=== PATIENT | male | born 1945 | race Caucasian/White ===

== ENCOUNTER 2016-04-25 13:52 | Inpatient (IN) | payer MEDICARE ==
[2016-04-25] MEDS ORDERED: SODIUM CHLORIDE 0.9% 1,000 ML IV ONE ×2 (14:01→16:00)
[2016-04-25] MEDS ORDERED: FAMOTIDINE 20 MG/50 ML 50 ML IV ONE ×2 (14:54→14:56)
[2016-04-25] MEDS ORDERED: ACETAMINOPHEN 325 MG TABLET PO PRN (17:03)
[2016-04-25] MEDS ORDERED: HYDROcod/ACETAM 5/325 MG TABLET PO PRN (17:03)
[2016-04-25] MEDS ORDERED: SODIUM CHLORIDE FLUSH 0.9% 10 ML SYRINGE IVP PRN (17:03)
[2016-04-25] MEDS ORDERED: ONDANSETRON 4 MG/2 ML VIAL IVP PRN (17:03)
[2016-04-25] MEDS ORDERED: NS W/20 MEQ KCL 1,000 ML IV SCH (18:00)
[2016-04-25] MEDS ORDERED: INSULIN REGULAR HUMAN 100 UNIT/1 ML 10 ML MDV SUBQ SCH (18:00)
[2016-04-25] MEDS: PANTOPRAZOLE 40 MG VIAL IVP SCH (20:03)
[2016-04-25] MEDS: SODIUM CHLORIDE FLUSH 0.9% 10 ML SYRINGE IVP SCH (21:50)
[2016-04-25] MEDS ORDERED: DEXTROSE GEL 37.5 GM TUBE PO PRN (21:53)
[2016-04-25] MEDS ORDERED: GLUCAGON 1 MG/ML VIAL SUBQ PRN (21:53)
[2016-04-25] MEDS ORDERED: DEXTROSE 5% 1,000 ML IV PRN (21:53)
[2016-04-25] MEDS ORDERED: DEXTROSE 50% ABBOJECT 25 GM/50 ML SYRINGE IVP PRN (21:53)
[2016-04-26] MEDS: PANTOPRAZOLE 40 MG VIAL IVP SCH ×2 (06:17→16:09)
[2016-04-26] MEDS: SODIUM CHLORIDE FLUSH 0.9% 10 ML SYRINGE IVP SCH ×3 (06:18→16:09)
[2016-04-26] MEDS: INSULIN ASPART 300 UNIT/3 ML PEN SUBQ SCH ×4 (08:05→20:55)
[2016-04-26] MEDS: TAMSULOSIN 0.4 MG CAPSULE PO SCH (09:07)
[2016-04-26] MEDS: POLYETHYLENE GLYCOL 3350 17 GM PACKET PO SCH (09:08)
[2016-04-27] MEDS: PANTOPRAZOLE 40 MG VIAL IVP SCH (07:01)
[2016-04-27] MEDS: SODIUM CHLORIDE FLUSH 0.9% 10 ML SYRINGE IVP SCH (07:01)
[2016-04-27] MEDS: INSULIN ASPART 300 UNIT/3 ML PEN SUBQ SCH ×2 (08:19→12:00)
[2016-04-27] MEDS: POLYETHYLENE GLYCOL 3350 17 GM PACKET PO SCH (08:20)
[2016-04-27] MEDS: TAMSULOSIN 0.4 MG CAPSULE PO SCH (09:24)
== END 2016-04-27 13:43 | disposition home or self-care (01) | DRG 378 ==
DX: K92.2 Gastrointestinal hemorrhage, unspecified (principal); N28.9 Disorder of kidney and ureter, unspecified; I10 Essential (primary) hypertension; K92.1 Melena; N17.9 Acute kidney failure, unspecified; Z79.84 Long term (current) use of oral hypoglycemic drugs; D62 Acute posthemorrhagic anemia; K27.9 Peptic ulcer, site unspecified, unspecified as acute or chronic, without hemorrhage or perforation; I12.9 Hypertensive chronic kidney disease with stage 1 through stage 4 chronic kidney disease, or unspecified chronic kidney disease; N18.9 Chronic kidney disease, unspecified; E11.9 Type 2 diabetes mellitus without complications; F03.90 Unspecified dementia, unspecified severity, without behavioral disturbance, psychotic disturbance, mood disturbance, and anxiety; Z66 Do not resuscitate

== ENCOUNTER 2016-05-21 07:50 | Outpatient (CLI) | payer MEDICARE | END 2016-05-21 07:51 | disposition home or self-care (01) | DX: D50.9 Iron deficiency anemia, unspecified (principal); E11.9 Type 2 diabetes mellitus without complications; N18.3 Chronic kidney disease, stage 3 (moderate); K92.2 Gastrointestinal hemorrhage, unspecified; I12.9 Hypertensive chronic kidney disease with stage 1 through stage 4 chronic kidney disease, or unspecified chronic kidney disease ==

== ENCOUNTER 2016-10-22 07:43 | Outpatient (CLI) | payer MEDICARE ==
[2016-10-22 12:59] LABS: BASOPHILS # (AUTO) 0.1 10^3/uL (0.0-0.1); BASOPHILS % (AUTO) 0.9 %; EOSINOPHILS # (AUTO) 0.3 10^3/uL (0.0-0.7); EOSINOPHILS % (AUTO) 3.6 %; HGB - HEMOGLOBIN 11.2 g/dL (14.0-18.0); LYMPHOCYTES # (AUTO) 1.7 10^3/uL (1.5-3.5); LYMPHOCYTES % (AUTO) 19.8 %; MEAN CORPUSCULAR HGB CONC 32.9 g/dL (32.0-36.0); MEAN CORPUSCULAR VOLUME 84.9 fL (80.0-94.0); MEAN PLATELET VOLUME 9.2 fL (7.4-11.4); MONOCYTES # (AUTO) 0.6 10^3/uL (0.0-1.0); MONOCYTES % (AUTO) 6.9 %; NEUTROPHILS % (AUTO) 68.8 %; RED BLOOD COUNT 4.01 10^6/uL (4.70-6.10); RED CELL DISTRIBUTION WIDTH 15.2 % (12.0-15.0); UNCORRECTED WHITE BLOOD COUNT 8.7 x10^3/uL; WHITE BLOOD COUNT 8.7 x10^3/uL (4.8-10.8)
[2016-10-22 13:36] LABS: HEMOGLOBIN A1C 1.18 g/dL
[2016-10-22 14:04] LABS: ALBUMIN/GLOBULIN RATIO 0.9 (1.0-2.2); BILIRUBIN,TOTAL 0.2 mg/dL (0.2-1.0); CALCIUM 9.7 mg/dL (8.5-10.3); CREATININE 1.4 mg/dL (0.6-1.2); POTASSIUM 3.9 mmol/L (3.5-5.0); TOTAL PROTEIN 8.2 g/dL (6.7-8.2)
== END 2016-10-22 07:44 | disposition home or self-care (01) ==
LOC: LAB.WCP 07:43
PROVIDERS: ATTEND Family Medicine
DX: R62.50 Unspecified lack of expected normal physiological development in childhood (principal); E11.9 Type 2 diabetes mellitus without complications; F03.90 Unspecified dementia, unspecified severity, without behavioral disturbance, psychotic disturbance, mood disturbance, and anxiety; D50.9 Iron deficiency anemia, unspecified; C61 Malignant neoplasm of prostate; N18.3 Chronic kidney disease, stage 3 (moderate)
CPT/HCPCS: 36415; 80053; 83036; 83540; 84466; 85025

== ENCOUNTER 2016-10-29 07:06 | Outpatient (CLI) | payer MEDICARE | END 2016-10-29 07:07 | disposition home or self-care (01) | LOC: LAB.R 07:06 | PROVIDERS: ATTEND Family Medicine | DX: N39.0 Urinary tract infection, site not specified (principal) | CPT/HCPCS: 87077; 87086 ==

== ENCOUNTER 2017-06-10 16:46 | Outpatient (CLI) | payer MEDICARE | END 2017-06-10 16:47 | disposition critical access hospital (66) | LOC: EMS 16:46 | PROVIDERS: ATTEND Surgery | DX: R73.09 Other abnormal glucose (principal) | CPT/HCPCS: A0425; A0429 ==

== ENCOUNTER 2017-06-10 17:05 | Emergency (ER) | payer MEDICARE ==
[2017-06-10 17:17] VITALS: BP 143/91
[2017-06-10 17:39] LABS: BASOPHILS # (AUTO) 0.1 10^3/uL (0.0-0.1); BASOPHILS % (AUTO) 1.1 %; EOSINOPHILS # (AUTO) 0.3 10^3/uL (0.0-0.7); EOSINOPHILS % (AUTO) 3.7 %; HGB - HEMOGLOBIN 10.5 g/dL (14.0-18.0); LYMPHOCYTES # (AUTO) 1.6 10^3/uL (1.5-3.5); MEAN CORPUSCULAR HEMOGLOBIN 28.1 pg (27.0-31.0); MEAN CORPUSCULAR HGB CONC 32.7 g/dL (32.0-36.0); MEAN CORPUSCULAR VOLUME 85.9 fL (80.0-94.0); MONOCYTES # (AUTO) 0.6 10^3/uL (0.0-1.0); MONOCYTES % (AUTO) 6.4 %; NEUTROPHILS # (AUTO) 6.7 10^3/uL (1.5-6.6); NEUTROPHILS % (AUTO) 71.8 %; PLT - PLATELET COUNT 313 10^3/uL (130-450); RED BLOOD COUNT 3.75 10^6/uL (4.70-6.10); RED CELL DISTRIBUTION WIDTH 14.8 % (12.0-15.0); WHITE BLOOD COUNT 9.3 x10^3/uL (4.8-10.8)
[2017-06-10 17:52] LABS: ALBUMIN 3.6 g/dL (3.2-5.5); ALBUMIN/GLOBULIN RATIO 0.8 (1.0-2.2); BILIRUBIN,TOTAL 0.2 mg/dL (0.2-1.0); CALCIUM 9.9 mg/dL (8.5-10.3); CREATININE 1.5 mg/dL (0.6-1.2); TOTAL PROTEIN 8.2 g/dL (6.7-8.2)
--- NOTE | 2017-06-10 18:23 | ED Physician Documentation ---
PD HPI NVD - Stated complaint Stated Complaint: HYPERGLYCEMIA - Chief complaint Chief Complaint: General - History obtained from History obtained from: Patient - History of Present Illness Timing - onset: How many days ago (has had somewhat elevated sugars for awhile and on oral med. BS has been more elevated the past few days with today in the 400s. Referred to ED by caregivers at [facility]. 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 Patient says he is urinating more often but otherwise feeling normal.) Timing - duration: Days Timing - details: Gradual onset, Waxing and waning Associated symptoms: No: Fever, Near syncope / syncope Contributing factors: Diabetes. No: Sick contact, Bad food, Recent antibiotics Worsened by: No: Eating Similar symptoms before: Has not had sx before Recently seen: Not recently seen Review of Systems Constitutional: denies: Fever Nose: denies: Rhinorrhea / runny nose, Congestion Throat: denies: Sore throat Cardiac: denies: Chest pain / pressure, Palpitations Respiratory: denies: Cough GI: denies: Abdominal Pain, Nausea, Vomiting : denies: Dysuria, Frequency Skin: denies: Rash, Lesions Neurologic: reports: Generalized weakness Endocrine: reports: Polyuria PD PAST MEDICAL HISTORY - Past Medical History Past Medical History: Yes Cardiovascular: Hypertension Respiratory: None Neuro: Dementia Endocrine/Autoimmune: Type 2 diabetes GI: None : Nocturia HEENT: None Psych: Claustrophobia Musculoskeletal: None Derm: None - Past Surgical History Past Surgical History: Yes - Present Medications Home Medications: Ambulatory Orders Medication Instructions Recorded Confirmed Acetaminophen [Tylenol] 325 mg PO Q6H PRN 06/10/17 Calcium Carbonate/Vitamin D3 1 tab PO DAILY 06/10/17 [Calcium 600-Vit D3 400 Tablet] Ferrous Sulfate 325 mg PO DAILY 06/10/17 Lisinopril/Hydrochlorothiazide 1 tab PO DAILY 06/10/17 [Lisinopril-Hctz 10-12.5 mg Tab] Pantoprazole [Protonix] 40 mg PO BID 06/10/17 Tamsulosin [Flomax] 1 tab PO DAILY 06/10/17 metFORMIN [Glucophage] 1,000 mg PO BID 06/10/17 - Allergies Allergies/Adverse Reactions: Allergies Allergy/AdvReac Type Severity Reaction Status Date / Time No Known Drug Allergies Allergy Verified 06/10/17 17:17 - Social History Does the pt smoke?: No Smoking Status: Never smoker Does the pt drink ETOH?: No Does the pt have substance abuse?: No - Immunizations Immunizations are current?: Yes PD ED PE NORMAL - Vitals Vital signs reviewed: Yes - General General: Alert and oriented X 3, No acute distress, Well developed/nourished - HEENT HEENT: Atraumatic, Pharynx benign - Neck Neck: Supple, no meningeal sign, No adenopathy - Cardiac Cardiac: RRR, No murmur - Respiratory Respiratory: Clear bilaterally - Abdomen Abdomen: Normal bowel sounds, Soft, Non tender, Non distended - Male Male : Deferred - Rectal Rectal: Deferred - Back Back: No CVA TTP - Derm Derm: Normal color, Warm and dry - Extremities Extremities: No tenderness to palpate, Normal ROM s pain, No edema, No calf tenderness / cord - Neuro Neuro: Alert and oriented X 3, No motor deficit, Normal speech Results - Vitals Vitals: Oxygen O2 Source [With Activity] Nasal cannula O2 Source Nasal cannula - Labs Labs: Laboratory Tests 06/10/17 06/10/17 06/10/17 17:15 17:33 17:33 WBC 9.3 RBC 3.75 L Hgb 10.5 L Hct 32.2 L MCV 85.9 MCH 28.1 MCHC 32.7 RDW 14.8 Plt Count 313 MPV 8.0 Neut # 6.7 H Lymph # 1.6 [place]ard # 0.6 Eos # 0.3 Baso # 0.1 Absolute Nucleated RBC 0.01 Nucleated RBC % 0.1 VBG pH VBG pCO2 VBG pO2 VBG HCO3 VBG Total CO2 VBG O2 Saturation VBG Base Excess Sodium 134 L Potassium 4.4 Chloride 97 L Carbon Dioxide 23 Anion Gap 14.0 H BUN 27 H Creatinine 1.5 H Estimated GFR (MDRD) 46 L Glucose 390 H POC Whole Bld Glucose 403 H Glycated Hemoglobin Estim Average Glucose Calcium 9.9 Magnesium Total Bilirubin 0.2 AST 102 H ALT 65 H Alkaline Phosphatase 77 Total Protein 8.2 Albumin 3.6 Globulin 4.6 H Albumin/Globulin Ratio 0.8 L Lipase 76 H Serum Ketones 06/10/17 06/10/17 06/10/17 17:33 17:33 18:52 WBC RBC Hgb Hct MCV MCH MCHC RDW Plt Count MPV Neut # Lymph # Heard # Eos # Baso # Absolute Nucleated RBC Nucleated RBC % VBG pH 7.445 H VBG pCO2 40.4 L VBG pO2 56.2 H VBG HCO3 27.1 VBG Total CO2 2.9 L VBG O2 Saturation 90.4 H VBG Base Excess 2.9 H Sodium Potassium Chloride Carbon Dioxide Anion Gap BUN Creatinine Estimated GFR (MDRD) Glucose POC Whole Bld Glucose Glycated Hemoglobin 9.8 H Estim Average Glucose 235 H Calcium Magnesium 1.9 Total Bilirubin AST ALT Alkaline Phosphatase Total Protein Albumin Globulin Albumin/Globulin Ratio Lipase Serum Ketones NEGATIVE 06/10/17 06/10/17 18:52 19:35 WBC RBC Hgb Hct MCV MCH MCHC RDW Plt Count MPV Neut # Lymph # Heard # Eos # Baso # Absolute Nucleated RBC Nucleated RBC % VBG pH VBG pCO2 VBG pO2 VBG HCO3 VBG Total CO2 VBG O2 Saturation VBG Base Excess Sodium Potassium Chloride Carbon Dioxide Anion Gap BUN Creatinine Estimated GFR (MDRD) Glucose POC Whole Bld Glucose 327 H 302 H Glycated Hemoglobin Estim Average Glucose Calcium Magnesium Total Bilirubin AST ALT Alkaline Phosphatase Total Protein Albumin Globulin Albumin/Globulin Ratio Lipase Serum Ketones PD MEDICAL DECISION MAKING - ED course Complexity details: d/w search consultant (DANIEL Colmenares, diamond saw operator, who suggests waiting for PMD to decide on treatment before presuming to start Lantus, though that will likely be the case. ) Departure - Departure Disposition: 01 Home, Self Care Clinical Impression: Hyperglycemia Condition: Stable Record reviewed to determine appropriate education?: Yes Instructions: ED Hyperglycemia Diabetic Follow-Up: Kirit Newell MD [Primary Care Provider] - Comments: Continue your current medications. Check with Dr. Newell's office tomorrow regarding if they want to start you on a long-acting daily insulin such as Lantus. This likely will be the case had a very low dose to begin with but the on-director call wanted to defer it to Dr. Newell before deciding for sure. Your other tests looked okay here and no signs of electrolyte problems or other infections that might have triggered the sugar to be high. Presumably is just your metabolism is changing and may require increased medication. Discharge Date/Time: 06/10/17 22:12
[2017-06-10] MEDS ORDERED: INSULIN REGULAR HUMAN 100 UNIT/1 ML 10 ML MDV SUBQ STA (18:41)
[2017-06-10 18:57] LABS: MAGNESIUM 1.9 mg/dL (1.7-2.8)
[2017-06-10 19:05] LABS: VBG BASE EXCESS 2.9 mmol/L (-2 - +2); VBG PCO2 40.4 mmHg (41-51); VBG PH 7.445 (7.31-7.41); VBG PO2 56.2 mmHg (25-47); VBG TOTAL CO2 2.9 mmol/L (24-29)
[2017-06-10 19:07] LABS: HB2 TOTAL 11.3 g/dL; HEMOGLOBIN A1C 0.94 g/dL; HEMOGLOBIN A1C % 9.8 % (4.6-6.2)
[2017-06-10 19:12] LABS: KETONES, SERUM (ACETEST) NEGATIVE (NEGATIVE)
== END 2017-06-10 22:12 | disposition home or self-care (01) ==
LOC: EDUNIT# → ED 17:05
DX: E11.65 Type 2 diabetes mellitus with hyperglycemia (principal); Z79.84 Long term (current) use of oral hypoglycemic drugs; I10 Essential (primary) hypertension; F03.90 Unspecified dementia, unspecified severity, without behavioral disturbance, psychotic disturbance, mood disturbance, and anxiety
CPT/HCPCS: 36415; 80053; 82009; 82803; 83036; 83690; 83735; 85025; 99283; 99284; J1815

== ENCOUNTER 2017-11-12 08:00 | Outpatient (CLI) | payer MEDICARE ==
[2017-11-12 19:18] LABS: HB2 TOTAL 13.4 g/dL; HEMOGLOBIN A1C 1.12 g/dL; HEMOGLOBIN A1C % 9.8 % (4.6-6.2)
[2017-11-12 19:19] LABS: BASOPHILS # (AUTO) 0.1 10^3/uL (0.0-0.1); BASOPHILS % (AUTO) 1.1 %; EOSINOPHILS # (AUTO) 0.2 10^3/uL (0.0-0.7); EOSINOPHILS % (AUTO) 2.9 %; HGB - HEMOGLOBIN 12.2 g/dL (14.0-18.0); LYMPHOCYTES # (AUTO) 1.1 10^3/uL (1.5-3.5); LYMPHOCYTES % (AUTO) 18.6 %; MEAN CORPUSCULAR HEMOGLOBIN 29.8 pg (27.0-31.0); MEAN CORPUSCULAR HGB CONC 32.9 g/dL (32.0-36.0); MEAN CORPUSCULAR VOLUME 90.4 fL (80.0-94.0); MEAN PLATELET VOLUME 9.7 fL (7.4-11.4); MONOCYTES # (AUTO) 0.6 10^3/uL (0.0-1.0); MONOCYTES % (AUTO) 9.7 %; NEUTROPHILS % (AUTO) 67.7 %; PLT - PLATELET COUNT 275 10^3/uL (130-450); RED BLOOD COUNT 4.12 10^6/uL (4.70-6.10); RED CELL DISTRIBUTION WIDTH 14.6 % (12.0-15.0); WHITE BLOOD COUNT 5.9 x10^3/uL (4.8-10.8)
[2017-11-12 19:24] LABS: ALBUMIN 3.5 g/dL (3.2-5.5); ALBUMIN/GLOBULIN RATIO 0.7 (1.0-2.2); BILIRUBIN,TOTAL 0.5 mg/dL (0.2-1.0); CALCIUM 10.4 mg/dL (8.5-10.3); CREATININE 1.6 mg/dL (0.6-1.2); TOTAL PROTEIN 8.3 g/dL (6.7-8.2)
== END 2017-11-12 08:01 | disposition home or self-care (01) ==
LOC: LAB.WCP 08:00
PROVIDERS: ATTEND Family Medicine
DX: N18.3 Chronic kidney disease, stage 3 (moderate) (principal); E11.29 Type 2 diabetes mellitus with other diabetic kidney complication
CPT/HCPCS: 36415; 80053; 83036; 84443; 85025

== ENCOUNTER 2018-02-25 10:45 | Outpatient (CLI) | payer MEDICARE ==
[2018-02-25 19:12] LABS: ALBUMIN 3.8 g/dL (3.2-5.5); ALBUMIN/GLOBULIN RATIO 0.9 (1.0-2.2); BILIRUBIN,TOTAL 0.6 mg/dL (0.2-1.0); CALCIUM 10.4 mg/dL (8.5-10.3); CREATININE 1.5 mg/dL (0.6-1.2); TOTAL PROTEIN 8.2 g/dL (6.7-8.2)
[2018-02-25 19:35] LABS: HB2 TOTAL 12.4 g/dL; HEMOGLOBIN A1C 0.41 g/dL; HEMOGLOBIN A1C % 5.2 % (4.6-6.2)
== END 2018-02-25 10:46 | disposition home or self-care (01) ==
LOC: LAB.WCP 10:45
PROVIDERS: ATTEND Family Medicine
DX: N18.3 Chronic kidney disease, stage 3 (moderate) (principal); E11.9 Type 2 diabetes mellitus without complications
CPT/HCPCS: 36415; 80053; 83036

== ENCOUNTER 2018-04-06 09:07 | Outpatient (CLI) | payer MEDICARE ==
--- NOTE | 2018-04-06 12:15 | XRAY Report ---
Reason: DYSPNEA Procedure Date: 04/06/2018 Accession Number: [id number] / [id number] Procedure: XR - Chest 2 View X-Ray CPT Code: 91643 FULL RESULT: EXAM: CHEST RADIOGRAPHY EXAM DATE: 04/06/2018 09:23 AM. CLINICAL HISTORY: DYSPNEA. COMPARISON: None. TECHNIQUE: 2 views. FINDINGS: Lungs/Pleura: There are patchy bibasilar opacities. No pneumothorax. No definite pleural effusion. There is flattening of the diaphragms. Mediastinum: Cardiomegaly is noted. There are atherosclerotic calcifications of the thoracic aorta. IMPRESSION: There are patchy bibasilar opacities. Correlate clinically for pneumonia. Likely COPD. Cardiomegaly is noted. RADIA
== END 2018-04-06 09:08 | disposition home or self-care (01) ==
LOC: DI 09:07
PROVIDERS: ATTEND Family Medicine
DX: R91.8 Other nonspecific abnormal finding of lung field (principal); I51.7 Cardiomegaly
CPT/HCPCS: 36415; 71046; 83880

== ENCOUNTER 2018-05-28 10:31 | Outpatient (CLI) | payer MEDICARE ==
[2018-05-28 14:50] LABS: HB2 TOTAL 14.3 g/dL; HEMOGLOBIN A1C 0.58 g/dL; HEMOGLOBIN A1C % 5.9 % (4.6-6.2)
[2018-05-28 17:39] LABS: ALBUMIN 4.3 g/dL (3.2-5.5); CALCIUM 11.1 mg/dL (8.5-10.3)
[2018-05-28 17:40] LABS: ALBUMIN/GLOBULIN RATIO 0.9 (1.0-2.2); BILIRUBIN,TOTAL 0.3 mg/dL (0.2-1.0); TOTAL PROTEIN 8.9 g/dL (6.7-8.2)
[2018-05-28 17:45] LABS: CREATININE 1.6 mg/dL (0.6-1.2)
== END 2018-05-28 10:32 | disposition home or self-care (01) ==
LOC: LAB.WCP 10:31
PROVIDERS: ATTEND Family Medicine
DX: E11.22 Type 2 diabetes mellitus with diabetic chronic kidney disease (principal); N18.3 Chronic kidney disease, stage 3 (moderate); D50.9 Iron deficiency anemia, unspecified; C61 Malignant neoplasm of prostate; F03.90 Unspecified dementia, unspecified severity, without behavioral disturbance, psychotic disturbance, mood disturbance, and anxiety
CPT/HCPCS: 36415; 80053; 82043; 83036

== ENCOUNTER 2018-06-17 08:00 | Outpatient (CLI) | payer MEDICARE | END 2018-06-17 23:59 | disposition home or self-care (01) | LOC: LAB.R 08:00 | PROVIDERS: ATTEND Family Medicine | DX: J06.9 Acute upper respiratory infection, unspecified (principal) | CPT/HCPCS: 87275; 87276 ==

== ENCOUNTER 2018-06-26 11:48 | Outpatient (CLI) | payer MEDICARE ==
--- NOTE | 2018-06-26 14:54 | XRAY Report ---
Reason: INFLUENZA Procedure Date: 06/26/2018 Accession Number: [id number] / [id number] Procedure: WCP - Chest 1 View X-Ray CPT Code: 94272 FULL RESULT: EXAM: CHEST RADIOGRAPHY EXAM DATE: 06/26/2018 11:57 AM. CLINICAL HISTORY: INFLUENZA. COMPARISON: CHEST 2 VIEW 04/06/2018 9:15 AM. TECHNIQUE: 1 view. FINDINGS: Lungs/Pleura: Similar pattern of plate-like subsegmental left basilar opacities could be recurrent atelectasis versus scar. Remaining lungs are clear. No effusion or extraventilatory air. Mediastinum: Heart size, mediastinal and hilar contours are within normal limits. Other: None. IMPRESSION: No infiltrates or edema. Minimal left basilar atelectasis versus scar RADIA
== END 2018-06-26 11:49 | disposition home or self-care (01) ==
LOC: DI.WCP 11:48
PROVIDERS: ATTEND Family Medicine
DX: J10.1 Influenza due to other identified influenza virus with other respiratory manifestations (principal)
CPT/HCPCS: 71045

== ENCOUNTER 2018-07-17 09:52 | Outpatient (CLI) | payer MEDICARE ==
--- NOTE | 2018-07-17 12:25 | XRAY Report ---
Reason: COUGH Procedure Date: 07/17/2018 Accession Number: [id number] / [id number] Procedure: XR - Chest 2 View X-Ray CPT Code: 52787 FULL RESULT: EXAM: CHEST RADIOGRAPHY EXAM DATE: 07/17/2018 10:00 AM. CLINICAL HISTORY: Cough. COMPARISON: CHEST 1 VIEW 06/26/2018 11:45 AM. TECHNIQUE: 2 views. FINDINGS: Lungs/Pleura: Increased right posterobasal opacities compared to prior. Redemonstration of subtle left retrocardiac linear opacities, possibly subsegmental atelectasis or airspace disease given elevation of the left hemidiaphragm, essentially unchanged. No sizable pleural effusion or pneumothorax. Mediastinum: Calcification of the aortic arch, cardiomediastinal contour top normal in size, stable compared to June. Other: None. IMPRESSION: Interval increase in right posterobasal airspace opacities. Stable linear left retrocardiac opacities in the setting of left-sided volume loss. RADIA
== END 2018-07-17 09:53 | disposition home or self-care (01) ==
LOC: DI 09:52
PROVIDERS: ATTEND Physician Assistant
DX: R91.8 Other nonspecific abnormal finding of lung field (principal)
CPT/HCPCS: 71046

== ENCOUNTER 2018-07-23 08:00 | Outpatient (CLI) | payer MEDICARE ==
[2018-07-23 12:47] LABS: BASOPHILS # (AUTO) 0.1 10^3/uL (0.0-0.1); BASOPHILS % (AUTO) 1.1 %; EOSINOPHILS # (AUTO) 0.3 10^3/uL (0.0-0.7); EOSINOPHILS % (AUTO) 2.8 %; LYMPHOCYTES # (AUTO) 1.3 10^3/uL (1.5-3.5); LYMPHOCYTES % (AUTO) 15.1 %; MEAN CORPUSCULAR HEMOGLOBIN 29.3 pg (27.0-31.0); MEAN CORPUSCULAR HGB CONC 32.7 g/dL (32.0-36.0); MEAN CORPUSCULAR VOLUME 89.5 fL (80.0-94.0); MONOCYTES # (AUTO) 0.9 10^3/uL (0.0-1.0); MONOCYTES % (AUTO) 9.8 %; NEUTROPHILS # (AUTO) 6.3 10^3/uL (1.5-6.6); NEUTROPHILS % (AUTO) 71.2 %; PLT - PLATELET COUNT 323 10^3/uL (130-450); RED BLOOD COUNT 3.77 10^6/uL (4.70-6.10); RED CELL DISTRIBUTION WIDTH 14.5 % (12.0-15.0); WHITE BLOOD COUNT 8.8 x10^3/uL (4.8-10.8)
[2018-07-23 13:28] LABS: ALBUMIN 3.8 g/dL (3.2-5.5); ALBUMIN/GLOBULIN RATIO 0.9 (1.0-2.2); BILIRUBIN,TOTAL 0.3 mg/dL (0.2-1.0); CALCIUM 10.4 mg/dL (8.5-10.3); CREATININE 1.5 mg/dL (0.6-1.2); TOTAL PROTEIN 8.1 g/dL (6.7-8.2)
[2018-07-23 13:30] LABS: FERRITIN 20.3 ng/mL (23.9-336.2)
== END 2018-07-23 23:59 | disposition home or self-care (01) ==
LOC: LAB.WCP 08:00
PROVIDERS: ATTEND Family Medicine
DX: R06.09 Other forms of dyspnea (principal); J18.9 Pneumonia, unspecified organism; D50.9 Iron deficiency anemia, unspecified
CPT/HCPCS: 36415; 80053; 82728; 83540; 83880; 84443; 84466; 85025

== ENCOUNTER 2018-07-23 09:47 | Outpatient (CLI) | payer MEDICARE ==
--- NOTE | 2018-07-23 10:19 | XRAY Report ---
Reason: PNEUMONIA Procedure Date: 07/23/2018 Accession Number: [id number] / [id number] Procedure: WCP - Chest 2 View X-Ray CPT Code: 67492 FULL RESULT: EXAM: CHEST RADIOGRAPHY EXAM DATE: 07/23/2018 10:04 AM. CLINICAL HISTORY: PNEUMONIA. COMPARISON: CHEST 2 VIEW 07/17/2018 9:54 AM. TECHNIQUE: 2 views. FINDINGS: Lungs/Pleura: There has been significant improvement in the previously described bilateral basilar parenchymal opacities. The upper lung zones remain clear. Normal pulmonary vasculature. Mediastinum: Heart and mediastinal contours are unremarkable. Other: None. IMPRESSION: There has been nearly complete resolution of previously described bilateral basilar consolidation. Otherwise normal examination. RADIA
== END 2018-07-23 09:48 | disposition home or self-care (01) ==
LOC: DI.WCP 09:47
PROVIDERS: ATTEND Family Medicine
DX: J18.9 Pneumonia, unspecified organism (principal); R06.09 Other forms of dyspnea; D50.9 Iron deficiency anemia, unspecified
CPT/HCPCS: 36415; 71046; 80053; 82728; 83540; 83880; 84443; 84466; 85025

== ENCOUNTER 2018-10-29 22:54 | Outpatient (CLI) | payer MEDICARE | END 2018-10-29 22:55 | disposition critical access hospital (66) | LOC: EMS 22:54 | PROVIDERS: ATTEND Surgery | DX: R41.0 Disorientation, unspecified (principal); R61 Generalized hyperhidrosis; R73.09 Other abnormal glucose | CPT/HCPCS: A0425; A0429 ==

== ENCOUNTER 2018-10-29 23:10 | Emergency (ER) | payer MEDICARE ==
--- NOTE | 2018-10-29 23:13 | ED Physician Documentation ---
PD HPI ALTERED MENTAL STATUS - Stated complaint Stated Complaint: AMS - Chief complaint Chief Complaint: Neuro - History obtained from History obtained from: Patient, EMS - History of Present Illness Timing - onset: How many minutes ago (45), Today Timing - duration: Minutes Timing - details: Abrupt onset (He states he did felt okay earlier and had taken a nap. He woke and felt abruptly sweaty lightheaded and his family member said he was seemed confused. There is no focal weakness or facial droop. This lasted for a few minutes and improved on route by EMS.), Now resolved. No: Still present Quality / character: Confused, Other (sweaty and lightheaded) Associated symptoms: No: Fever, Headache, Focal weakness Contributing factors: Diabetic. No: Anticoagulated, Recent med change, Recent illness Basline status: Alert and oriented X 3, Ambulatory Treatment HEALTH NAVIGATOR: Accucheck (good blood sugar enroute) Similar symptoms before: Has not had sx before Recently seen: Not recently seen Review of Systems Constitutional: denies: Fever, Chills, Myalgias Nose: denies: Rhinorrhea / runny nose, Congestion Throat: denies: Sore throat Cardiac: denies: Chest pain / pressure, Palpitations Respiratory: denies: Dyspnea, Cough GI: reports: Nausea. denies: Abdominal Pain, Vomiting, Diarrhea Neurologic: denies: Headache PD PAST MEDICAL HISTORY - Past Medical History Cardiovascular: Hypertension Respiratory: None Endocrine/Autoimmune: Type 2 diabetes GI: None : Nocturia HEENT: None Psych: Claustrophobia Musculoskeletal: None Derm: None - Past Surgical History Past Surgical History: Yes - Present Medications Home Medications: Ambulatory Orders Medication Instructions Recorded Confirmed Acetaminophen [Tylenol] 325 mg PO Q6H PRN 06/10/17 10/29/18 Calcium Carbonate/Vitamin D3 1 tab PO DAILY 06/10/17 10/29/18 [Calcium 600-Vit D3 400 Tablet] Ferrous Sulfate 325 mg PO BID 06/10/17 10/29/18 Lisinopril/Hydrochlorothiazide 1 tab PO DAILY 06/10/17 10/29/18 [Lisinopril-Hctz 10-12.5 mg Tab] Tamsulosin [Flomax] 1 tab PO DAILY 06/10/17 10/29/18 Metformin HCl [Metformin HCl ER] 2 tab PO BID 01/29/18 10/29/18 Sertraline HCl 1 tab PO DAILY 01/29/18 10/29/18 Esomeprazole Magnesium 1 cap PO BID 07/28/18 10/29/18 Albuterol Sulfate 3 ml IH Q4HR PRN 10/29/18 10/29/18 Insulin NPH Hum/Reg Insulin Hm 50 units SUBQ BID 10/29/18 10/29/18 [Humulin 70/30 Kwikpen] - Allergies Allergies/Adverse Reactions: Allergies Allergy/AdvReac Type Severity Reaction Status Date / Time No Known Drug Allergies Allergy Verified 10/29/18 23:16 - Social History Does the pt smoke?: No Smoking Status: Never smoker Does the pt drink ETOH?: No Does the pt have substance abuse?: No - Immunizations Immunizations are current?: Yes PD ED PE NORMAL - Vitals Vital signs reviewed: Yes - General General: Alert and oriented X 3, No acute distress, Well developed/nourished - HEENT HEENT: Atraumatic, Moist mucous membranes, Pharynx benign - Neck Neck: Supple, no meningeal sign, No adenopathy - Cardiac Cardiac: RRR, No murmur - Respiratory Respiratory: Clear bilaterally - Abdomen Abdomen: Soft, Non tender - Back Back: No CVA TTP - Derm Derm: Normal color, Warm and dry - Extremities Extremities: No deformity, No tenderness to palpate, Normal ROM s pain, No edema, No calf tenderness / cord - Neuro Neuro: Alert and oriented X 3, No motor deficit, Normal speech Eye Opening: Spontaneous Motor: Obeys Commands Verbal: Oriented GCS Score: 15 - Psych Psych: Normal mood, Normal affect Results - Vitals Vitals: Vital Signs - 24 hr 10/29/18 10/30/18 10/30/18 23:11 00:22 02:11 Temperature 37.1 C Heart Rate 100 98 99 Respiratory 18 18 16 Rate Blood Pressure 143/95 H 150/90 H 132/74 H O2 Saturation 94 93 90 L 10/30/18 10/30/18 02:33 03:05 Temperature 37.1 C 36.9 C Heart Rate 94 88 Respiratory 16 16 Rate Blood Pressure 132/74 H 136/79 H O2 Saturation 94 100 Oxygen O2 Source [With Activity] Nasal cannula O2 Source Room air - EKG (time done) 23:29 Rate: Rate (enter#) (88) Rhythm: NSR Intervals: LBBB Ischemia: Normal ST segments, Non specific changes. No: ST elevation c/w ischemia, ST depression Compare to prior EKG: Unchanged from prior EKG (from 04/25/16) - Labs Labs: Laboratory Tests 10/29/18 10/29/18 10/29/18 23:55 23:55 23:55 WBC 8.9 RBC 4.09 L Hgb 12.0 L Hct 38.0 L MCV 92.9 MCH 29.3 MCHC 31.6 L RDW 13.9 Plt Count 279 MPV 10.8 Neut # (Auto) 6.0 Lymph # (Auto) 1.5 [place] # (Auto) 1.0 Eos # (Auto) 0.3 Baso # (Auto) 0.1 Absolute Nucleated RBC 0.00 Nucleated RBC % 0.0 Sodium 139 Potassium 4.7 Chloride 101 Carbon Dioxide 23 Anion Gap 15.0 H BUN 42 H Creatinine 1.4 H Estimated GFR (MDRD) 50 L Glucose 190 H Lactic Acid Calcium 10.7 H Magnesium 2.4 Total Bilirubin 0.3 AST 32 ALT 20 Alkaline Phosphatase 55 Troponin I 0.04 Troponin I High Sens 38.8 H* Total Protein 8.1 Albumin 3.9 Globulin 4.2 Albumin/Globulin Ratio 0.9 L Lipase 75 H Urine Color Urine Clarity Urine pH Ur Specific [place] Urine Protein Urine Glucose (UA) Urine Ketones Urine Occult Blood Urine Nitrite Urine Bilirubin Urine Urobilinogen Ur Leukocyte Esterase Ur Microscopic Review Urine Culture Comments Serum Ketones NEGATIVE 10/29/18 10/30/18 10/30/18 23:55 01:05 01:30 WBC RBC Hgb Hct MCV MCH MCHC RDW Plt Count MPV Neut # (Auto) Lymph # (Auto) [place] # (Auto) Eos # (Auto) Baso # (Auto) Absolute Nucleated RBC Nucleated RBC % Sodium Potassium Chloride Carbon Dioxide Anion Gap BUN Creatinine Estimated GFR (MDRD) Glucose Lactic Acid 1.8 Calcium Magnesium Total Bilirubin AST ALT Alkaline Phosphatase Troponin I 0.04 Troponin I High Sens 42.2 H* Total Protein Albumin Globulin Albumin/Globulin Ratio Lipase Urine Color YELLOW Urine Clarity CLEAR Urine pH 5.5 Ur Specific [place] 1.020 Urine Protein NEGATIVE Urine Glucose (UA) NEGATIVE Urine Ketones NEGATIVE Urine Occult Blood NEGATIVE Urine Nitrite NEGATIVE Urine Bilirubin NEGATIVE Urine Urobilinogen 0.2 (NORMAL) Ur Leukocyte Esterase NEGATIVE Ur Microscopic Review NOT INDICATED Urine Culture Comments NOT INDICATED Serum Ketones - Rads (name of study) chest xray Radiology: Prelim report reviewed, EMP read contemporaneously PD MEDICAL DECISION MAKING - ED course Complexity details: reviewed results (His labs were basically normal. His standard troponin was negative. The high-sensitivity troponin was elevated but not to the 99th percentile. I had a lower to medium pretest probability. A repeat troponin about 1-1/2 hours later showed a essentially the same level of 38-42. My interpretation of this would be a negative result given a low to medium pretest probability and an no delta increase in the sensitivity troponin.), re-evaluated patient (still feeling okay here), considered differential (He awoke from a nap with lightheadedness confusion and sweaty. There is no chest pain or headache. Will check for electrolytes and blood count. He had a blood sugar tested on route which was normal. Will check for heart function and signs of heart attack as well as electrolytes and blood count. He will be watched on the heart monitor watch for a regular rhythm.), d/w patient Departure - Departure Disposition: 01 Home, Self Care Clinical Impression: Near syncope Condition: Stable Record reviewed to determine appropriate education?: Yes Instructions: ED Near Syncope Unkn Follow-Up: Kirit Newell MD [Primary Care Provider] - Comments: No signs of significant problem leading to your symptoms. He seemed to be well at this time. Continue usual medications and stay well-hydrated. Return if repeat episodes or other symptoms develop. Discharge Date/Time: 10/30/18 03:05
[2018-10-29] MEDS ORDERED: SODIUM CHLORIDE 0.9% 1,000 ML IV ONE (23:26)
[2018-10-30] LABS: BASOPHILS # (AUTO) 0.1 10^3/uL (0.0-0.1); BASOPHILS % (AUTO) 1.1 %; EOSINOPHILS # (AUTO) 0.3 10^3/uL (0.0-0.7); EOSINOPHILS % (AUTO) 3.7 %; LYMPHOCYTES # (AUTO) 1.5 10^3/uL (1.5-3.5); LYMPHOCYTES % (AUTO) 16.6 %; MEAN CORPUSCULAR HEMOGLOBIN 29.3 pg (27.0-31.0); MEAN CORPUSCULAR HGB CONC 31.6 g/dL (32.0-36.0); MEAN CORPUSCULAR VOLUME 92.9 fL (80.0-94.0); MEAN PLATELET VOLUME 10.8 fL (7.4-11.4); MONOCYTES % (AUTO) 11.3 %; PLT - PLATELET COUNT 279 10^3/uL (130-450); RED BLOOD COUNT 4.09 10^6/uL (4.70-6.10); RED CELL DISTRIBUTION WIDTH 13.9 % (12.0-15.0); WHITE BLOOD COUNT 8.9 x10^3/uL (4.8-10.8)
--- NOTE | 2018-10-30 00:03 | XRAY Report ---
Reason: dyspnea/ altered mental status Procedure Date: 10/29/2018 Accession Number: [id number] / [id number] Procedure: XR - Chest 1 View X-Ray CPT Code: 16850 FULL RESULT: EXAM: CHEST RADIOGRAPHY EXAM DATE: 10/29/2018 11:43 PM. CLINICAL HISTORY: Dyspnea, altered mental status. COMPARISON: CHEST 2 VIEW 07/17/2018 9:54 AM, CHEST 2 VIEW 07/23/2018 9:42 AM, CHEST 1 VIEW 06/26/2018 11:45 AM, CHEST 2 VIEW 04/06/2018 9:15 AM. TECHNIQUE: 1 view. FINDINGS IMPRESSION: 1. Small streaky bibasilar airspace disease, left greater than right. These are probably secondary to atelectasis. Aspiration or early infection difficult to exclude. 2. Trace left-sided effusion may be present. 3. Cardiac silhouette is within normal limits when accounting for lung volumes and technique. 4. No definite evidence of a pneumothorax. 5. No definite acute displaced fracture seen. RADIA
[2018-10-30 00:10] LABS: KETONES, SERUM (ACETEST) NEGATIVE (NEGATIVE)
[2018-10-30 00:18] LABS: ALBUMIN 3.9 g/dL (3.2-5.5); ALKALINE PHOSPHATASE 55 IU/L (42-121); ALT ALANINE AMINOTRANSFERASE 20 IU/L (10-60); CARBON DIOXIDE - CO2 23 mmol/L (21-32); CHLORIDE 101 mmol/L (101-111); GLUCOSE 190 mg/dL (70-100); SODIUM 139 mmol/L (135-145)
[2018-10-30 00:19] LABS: ALBUMIN/GLOBULIN RATIO 0.9 (1.0-2.2); AST ASPARTATE AMINOTRANSFERASE 32 IU/L (10-42); BILIRUBIN,TOTAL 0.3 mg/dL (0.2-1.0); BUN - BLOOD UREA NITROGEN 42 mg/dL (6-20); CALCIUM 10.7 mg/dL (8.5-10.3); CREATININE 1.4 mg/dL (0.6-1.2); GFR - MDRD 50 (>89); LIPASE 75 U/L (22-51); MAGNESIUM 2.4 mg/dL (1.7-2.8); TOTAL PROTEIN 8.1 g/dL (6.7-8.2)
[2018-10-30 00:34] LABS: TROPONIN I 0.04 ng/mL (<0.49)
[2018-10-30 01:11] LABS: BILIRUBIN,URINE NEGATIVE (NEGATIVE); GLUCOSE, URINE (UA) NEGATIVE (NEGATIVE); KETONES,URINE (UA) NEGATIVE (NEGATIVE); LEUKOCYTE ESTERASE, URINE NEGATIVE (NEGATIVE); NITRITE,URINE NEGATIVE (NEGATIVE); OCCULT BLOOD,URINE NEGATIVE (NEGATIVE); PH,URINE 5.5 PH (5.0-7.5); PROTEIN,URINE NEGATIVE (NEGATIVE); UROBILINOGEN,URINE 0.2 (NORMAL) E.U./dL (NORMAL)
[2018-10-30 01:12] LABS: CLARITY,URINE CLEAR (CLEAR)
[2018-10-30] MEDS ORDERED: SODIUM CHLORIDE 0.9% 1,000 ML IV ONE (01:48)
[2018-10-30 01:57] LABS: TROPONIN I 0.04 ng/mL (<0.49)
[2018-10-30 03:14] VITALS: BP 136/79
== END 2018-10-30 03:05 | disposition home or self-care (01) ==
LOC: EDUNIT# → ED 23:10
DX: R55 Syncope and collapse (principal); I10 Essential (primary) hypertension; E11.9 Type 2 diabetes mellitus without complications; Z79.4 Long term (current) use of insulin
CPT/HCPCS: 36415; 71045; 80053; 81001; 81003; 82009; 83605; 83690; 83735; 84484; 85025; 87086; 96360; 96361; 99284

== ENCOUNTER 2018-11-01 20:02 | Outpatient (CLI) | payer MEDICARE | END 2018-11-01 20:03 | disposition short-term general hospital (02) | LOC: EMS 20:02 | PROVIDERS: ATTEND Surgery | DX: K62.5 Hemorrhage of anus and rectum (principal) | CPT/HCPCS: A0425; A0427 ==

== ENCOUNTER 2018-11-04 09:00 | Outpatient (CLI) | payer MEDICARE ==
--- NOTE | 2018-11-06 12:18 | XRAY Report ---
Reason: PNEUMONIA Procedure Date: 11/04/2018 Accession Number: [id number] / [id number] Procedure: WCP - Chest 2 View X-Ray CPT Code: 85394 FULL RESULT: EXAM: CHEST RADIOGRAPHY EXAM DATE: 11/04/2018 04:22 PM. CLINICAL HISTORY: PNEUMONIA. COMPARISON: CHEST 1 VIEW 10/29/2018 11:25 PM CHEST 2 VIEW 07/23/2018 9:42 AM. TECHNIQUE: 2 views. FINDINGS: Lungs/Pleura: Volumes are within normal limits. Opacity within the left lung base is perhaps slightly improved as compared to the previous examination. No clearly new areas of airspace disease are seen. No evidence of pneumothorax. Mediastinum: Normal heart size. There is thoracic aortic calcification. Other: None. IMPRESSION: 1. Lung volumes and heart size are within normal limits. 2. Mild interval decrease in opacity within the left lung base which may represent improvement in airspace disease. No new infiltrates are seen. 3. No evidence of pneumothorax. RADIA
== END 2018-11-04 23:59 | disposition home or self-care (01) ==
LOC: DI.WCP 09:00 → EDSTATUS 12:57 → DI.WCP 23:59
PROVIDERS: ATTEND Family Medicine
DX: J18.9 Pneumonia, unspecified organism (principal)
CPT/HCPCS: 71046

== ENCOUNTER 2019-01-22 08:00 | Outpatient (CLI) | payer MEDICARE ==
[2019-01-22 18:39] LABS: BASOPHILS # (AUTO) 0.1 10^3/uL (0.0-0.1); BASOPHILS % (AUTO) 0.7 %; EOSINOPHILS # (AUTO) 0.2 10^3/uL (0.0-0.7); EOSINOPHILS % (AUTO) 2.5 %; HGB - HEMOGLOBIN 11.9 g/dL (14.0-18.0); LYMPHOCYTES % (AUTO) 12.4 %; MEAN CORPUSCULAR HEMOGLOBIN 28.3 pg (27.0-31.0); MEAN CORPUSCULAR HGB CONC 30.2 g/dL (32.0-36.0); MEAN CORPUSCULAR VOLUME 93.8 fL (80.0-94.0); MEAN PLATELET VOLUME 11.6 fL (7.4-11.4); MONOCYTES # (AUTO) 0.9 10^3/uL (0.0-1.0); MONOCYTES % (AUTO) 10.3 %; NEUTROPHILS # (AUTO) 6.2 10^3/uL (1.5-6.6); NEUTROPHILS % (AUTO) 73.7 %; PLT - PLATELET COUNT 260 10^3/uL (130-450); RED CELL DISTRIBUTION WIDTH 14.1 % (12.0-15.0); WHITE BLOOD COUNT 8.4 x10^3/uL (4.8-10.8)
[2019-01-22 19:04] LABS: HB2 TOTAL 12.9 g/dL; HEMOGLOBIN A1C 0.65 g/dL; HEMOGLOBIN A1C % 6.8 % (4.6-6.2)
[2019-01-22 19:05] LABS: BILIRUBIN,TOTAL 0.5 mg/dL (0.2-1.0); CALCIUM 10.7 mg/dL (8.5-10.3); CREATININE 1.7 mg/dL (0.6-1.2)
== END 2019-01-22 23:59 | disposition home or self-care (01) ==
LOC: LAB.WCP 08:00
PROVIDERS: ATTEND Family Medicine
DX: J18.9 Pneumonia, unspecified organism (principal); D50.9 Iron deficiency anemia, unspecified; C61 Malignant neoplasm of prostate; E11.22 Type 2 diabetes mellitus with diabetic chronic kidney disease; N18.3 Chronic kidney disease, stage 3 (moderate); K92.2 Gastrointestinal hemorrhage, unspecified
CPT/HCPCS: 36415; 80053; 83036; 85025

== ENCOUNTER 2019-05-05 12:30 | Outpatient (CLI) | payer MEDICARE ==
[2019-05-05 19:05] LABS: BASOPHILS # (AUTO) 0.1 10^3/uL (0.0-0.1); BASOPHILS % (AUTO) 1.1 %; EOSINOPHILS # (AUTO) 0.2 10^3/uL (0.0-0.7); HGB - HEMOGLOBIN 11.8 g/dL (14.0-18.0); LYMPHOCYTES # (AUTO) 1.1 10^3/uL (1.5-3.5); LYMPHOCYTES % (AUTO) 19.5 %; MEAN CORPUSCULAR HEMOGLOBIN 29.9 pg (27.0-31.0); MEAN CORPUSCULAR HGB CONC 31.5 g/dL (32.0-36.0); MEAN CORPUSCULAR VOLUME 95.2 fL (80.0-94.0); MEAN PLATELET VOLUME 10.9 fL (7.4-11.4); MONOCYTES # (AUTO) 0.6 10^3/uL (0.0-1.0); MONOCYTES % (AUTO) 10.3 %; NEUTROPHILS # (AUTO) 3.6 10^3/uL (1.5-6.6); NEUTROPHILS % (AUTO) 64.7 %; PLT - PLATELET COUNT 276 10^3/uL (130-450); RED BLOOD COUNT 3.94 10^6/uL (4.70-6.10); RED CELL DISTRIBUTION WIDTH 13.2 % (12.0-15.0); WHITE BLOOD COUNT 5.5 x10^3/uL (4.8-10.8)
[2019-05-05 19:36] LABS: ALBUMIN 3.7 g/dL (3.2-5.5); BILIRUBIN,TOTAL 0.4 mg/dL (0.2-1.0); CREATININE 1.4 mg/dL (0.6-1.2); PHOSPHORUS 4.1 mg/dL (2.5-4.6); TOTAL PROTEIN 7.5 g/dL (6.7-8.2)
[2019-05-05 19:42] LABS: HB2 TOTAL 12.5 g/dL; HEMOGLOBIN A1C 0.61 g/dL; HEMOGLOBIN A1C % 6.6 % (4.6-6.2)
== END 2019-05-05 23:59 | disposition home or self-care (01) ==
LOC: LAB.WCP 12:30
PROVIDERS: ATTEND Family Medicine
DX: I12.9 Hypertensive chronic kidney disease with stage 1 through stage 4 chronic kidney disease, or unspecified chronic kidney disease (principal); N18.3 Chronic kidney disease, stage 3 (moderate); D63.1 Anemia in chronic kidney disease; R94.5 Abnormal results of liver function studies; E83.52 Hypercalcemia
CPT/HCPCS: 36415; 80053; 83036; 83970; 84100; 84443; 85025

== ENCOUNTER 2019-05-25 09:13 | Outpatient (CLI) | payer MEDICARE ==
[2019-05-25] MEDS ORDERED: ALBUTEROL NEB 2.5 MG/3 ML INH SCH (09:22)
== END 2019-05-25 09:14 | disposition home or self-care (01) ==
LOC: RT 09:13
PROVIDERS: ATTEND Family Medicine
DX: R06.00 Dyspnea, unspecified (principal)
CPT/HCPCS: 94060

== ENCOUNTER 2019-09-02 08:00 | Outpatient (CLI) | payer MEDICARE ==
[2019-09-02 14:00] LABS: CALCIUM 10.6 mg/dL (8.5-10.3); CREATININE 1.5 mg/dL (0.6-1.2)
[2019-09-02 14:09] LABS: CREATININE,URINE 126.8 mg/dL; MICROALBUM/CREATININE RATIO,UR 5.5 ug/mg (<30.0); MICROALBUMIN,URINE 0.7 mg/dL (0-300.0)
[2019-09-02 14:40] LABS: HB2 TOTAL 14.1 g/dL; HEMOGLOBIN A1C 0.63 g/dL; HEMOGLOBIN A1C % 6.2 % (4.6-6.2)
== END 2019-09-02 23:59 | disposition home or self-care (01) ==
LOC: LAB.WCP 08:00
PROVIDERS: ATTEND Family Medicine
DX: E11.9 Type 2 diabetes mellitus without complications (principal); Z85.46 Personal history of malignant neoplasm of prostate
CPT/HCPCS: 36415; 80048; 82043; 82570; 83036; 84153

== ENCOUNTER 2020-01-28 19:01 | Outpatient (CLI) | payer MEDICARE | END 2020-01-28 19:02 | disposition critical access hospital (66) | LOC: EMS 19:01 | PROVIDERS: ATTEND Surgery | DX: R04.0 Epistaxis (principal) | CPT/HCPCS: A0425; A0429 ==

== ENCOUNTER 2020-01-28 19:19 | Emergency (ER) | payer MEDICARE ==
--- NOTE | 2020-01-28 19:59 | ED Physician Documentation ---
History of Present Illness - Stated complaint Stated Complaint: NOSEBLEED - Chief complaint Chief Complaint: Heent - History obtained from History obtained from: Patient - History of Present Illness Timing: Yesterday Pain level max: 0 Pain level now: 0 - Additonal information Additional information: 74 year old male with nose bleed yesterday and today. has been bleeding x 2 hours today. No anticoagulants. Better with pressure. Nothing makes it worse. no trauma. Review of Systems Constitutional: denies: Fever, Chills Throat: denies: Sore throat GI: denies: Vomiting, Diarrhea Skin: denies: Rash PD PAST MEDICAL HISTORY - Past Medical History Cardiovascular: Hypertension Respiratory: None Endocrine/Autoimmune: Type 2 diabetes GI: None : Nocturia HEENT: None Psych: Claustrophobia Musculoskeletal: None Derm: None - Past Surgical History Past Surgical History: Yes - Present Medications Home Medications: Ambulatory Orders Medication Instructions Recorded Confirmed Acetaminophen [Tylenol] 325 mg PO Q6H PRN 06/10/17 09/06/19 Calcium Carbonate/Vitamin D3 1 tab PO DAILY 06/10/17 09/06/19 [Calcium 600-Vit D3 400 Tablet] Ferrous Sulfate 325 mg PO BID 06/10/17 09/06/19 Lisinopril/Hydrochlorothiazide 1 tab PO DAILY 06/10/17 09/06/19 [Lisinopril-Hctz 10-12.5 mg Tab] Tamsulosin [Flomax] 1 tab PO DAILY 06/10/17 09/06/19 Metformin HCl [Metformin HCl ER] 2 tab PO BID 01/29/18 09/06/19 Sertraline HCl 1 tab PO DAILY 01/29/18 09/06/19 Esomeprazole Magnesium 1 cap PO BID 07/28/18 09/06/19 Insulin NPH Hum/Reg Insulin Hm 50 units SUBQ BID 10/29/18 09/06/19 [Humulin 70/30 Kwikpen] Oxymetazoline HCl [Afrin] 1 spray NS BID #1 bottle 01/28/20 - Allergies Allergies/Adverse Reactions: Allergies Allergy/AdvReac Type Severity Reaction Status Date / Time shellfish derived Allergy Emesis Verified 09/06/19 10:44 - Social History Does the pt smoke?: No Smoking Status: Never smoker Does the pt drink ETOH?: No Does the pt have substance abuse?: No - Immunizations Immunizations are current?: Yes PD ED PE NORMAL - Vitals Vital signs reviewed: Yes - General General: Alert and oriented X 3, No acute distress - HEENT HEENT: Moist mucous membranes, Other (Mild epistaxis from the left nare. Unable to visualize source.) - Neck Neck: Supple, no meningeal sign - Cardiac Cardiac: RRR - Respiratory Respiratory: No respiratory distress, Clear bilaterally - Derm Derm: Warm and dry - Neuro Neuro: Alert and oriented X 3 - Psych Psych: Normal mood, Normal affect Results - Vitals Vitals: Vital Signs - 24 hr 01/28/20 01/28/20 01/28/20 19:22 19:28 20:55 Temperature 36.7 C Heart Rate 86 71 75 Respiratory 28 H 25 H 22 Rate Blood Pressure 108/65 98/76 114/62 O2 Saturation 92 93 96 01/28/20 21:25 Temperature 36.6 C Heart Rate 90 Respiratory 21 Rate Blood Pressure 115/59 L O2 Saturation 94 Oxygen O2 Source [With Activity] Nasal cannula O2 Source Room air - Labs Labs: Laboratory Tests 01/28/20 01/28/20 01/28/20 20:15 20:15 21:01 WBC 6.6 RBC 4.33 L Hgb 12.6 L Hct 41.6 L MCV 96.1 H MCH 29.1 MCHC 30.3 L RDW 13.9 Plt Count 234 MPV 10.8 Neut # (Auto) 4.4 Lymph # (Auto) 1.1 L [place] # (Auto) 0.9 Eos # (Auto) 0.2 Baso # (Auto) 0.1 Absolute Nucleated RBC 0.00 Nucleated RBC % 0.0 PT 13.0 H INR 1.2 APTT 27.7 Sodium 139 Potassium 5.1 H Chloride 105 Carbon Dioxide 25 Anion Gap 9.0 BUN 37 H Creatinine 1.7 H Estimated GFR (MDRD) 40 L Glucose 158 H Calcium 10.4 H PD MEDICAL DECISION MAKING - ED course Complexity details: reviewed results, re-evaluated patient, considered differential, d/w patient ED course: TXA and Afrin were atomized into the nose. No further bleeding. No significant lab abnormalities. No anemia. We will have him follow-up with his doctor. Patient counseled regarding signs and symptoms for which I believe and urgent re-evaluation would be necessary. Patient with good understanding of and agreement to plan and is comfortable going home at this time This document was made in part using voice recognition software. While efforts are made to proofread this document, sound alike and grammatical errors may occur. Departure - Departure Disposition: 01 Home, Self Care Clinical Impression: Epistaxis, Hyperkalemia Condition: Good Instructions: ED Nosebleed Follow-Up: Kirit Newell MD [Primary Care Provider] - As Needed Prescriptions: Oxymetazoline HCl [Afrin] 1 spray NS BID #1 bottle Comments: Return if you worsen. If bleeding recurrs, spray the afrin up your nose and then clamp the nose for 15 minutes before rechecking. Have your potassium and creatinine rechecked with your doctor in 3-4 days
[2020-01-28] MEDS ORDERED: TRANEXAMIC ACID 1,000 MG/10 ML VIAL NAS STA (20:05)
[2020-01-28] MEDS ORDERED: OXYMETAZOLINE HCL 100 SPRAYS BOTTLE NAS STA (20:05)
[2020-01-28 20:44] LABS: INR 1.2 (0.8-1.2)
[2020-01-28 20:52] LABS: PARTIAL THROMBOPLASTIN TIME 27.7 secs (24.9-33.3)
[2020-01-28 20:54] LABS: CALCIUM 10.4 mg/dL (8.5-10.3); CREATININE 1.7 mg/dL (0.6-1.2)
[2020-01-28 21:14] LABS: BASOPHILS # (AUTO) 0.1 10^3/uL (0.0-0.1); BASOPHILS % (AUTO) 1.1 %; EOSINOPHILS # (AUTO) 0.2 10^3/uL (0.0-0.7); EOSINOPHILS % (AUTO) 3.2 %; HGB - HEMOGLOBIN 12.6 g/dL (14.0-18.0); LYMPHOCYTES # (AUTO) 1.1 10^3/uL (1.5-3.5); MEAN CORPUSCULAR HEMOGLOBIN 29.1 pg (27.0-31.0); MEAN CORPUSCULAR HGB CONC 30.3 g/dL (32.0-36.0); MEAN CORPUSCULAR VOLUME 96.1 fL (80.0-94.0); MEAN PLATELET VOLUME 10.8 fL (7.4-11.4); MONOCYTES # (AUTO) 0.9 10^3/uL (0.0-1.0); MONOCYTES % (AUTO) 12.8 %; NEUTROPHILS # (AUTO) 4.4 10^3/uL (1.5-6.6); NEUTROPHILS % (AUTO) 65.4 %; PLT - PLATELET COUNT 234 10^3/uL (130-450); RED BLOOD COUNT 4.33 10^6/uL (4.70-6.10); RED CELL DISTRIBUTION WIDTH 13.9 % (12.0-15.0); WHITE BLOOD COUNT 6.6 x10^3/uL (4.8-10.8)
[2020-01-28 22:53] VITALS: BP 122/76
== END 2020-01-28 22:54 | disposition home or self-care (01) ==
LOC: EDUNIT# → ED 19:19
DX: R04.0 Epistaxis (principal); E87.5 Hyperkalemia; I10 Essential (primary) hypertension; E11.9 Type 2 diabetes mellitus without complications; Z79.4 Long term (current) use of insulin
CPT/HCPCS: 36415; 80048; 85025; 85610; 85730; 99282; 99284; A9270

== ENCOUNTER 2020-01-29 01:16 | Outpatient (CLI) | payer MEDICARE | END 2020-01-29 01:17 | disposition critical access hospital (66) | LOC: EMS 01:16 | PROVIDERS: ATTEND Surgery | DX: R04.0 Epistaxis (principal) | CPT/HCPCS: A0425; A0429 ==

== ENCOUNTER 2020-01-29 01:19 | Emergency (ER) | payer MEDICARE ==
[2020-01-29] MEDS ORDERED: OXYMETAZOLINE HCL 100 SPRAYS BOTTLE NAS STA (03:49)
--- NOTE | 2020-01-29 04:35 | ED Physician Documentation ---
History of Present Illness - Stated complaint Stated Complaint: NOSEBLEED - Chief complaint Chief Complaint: Heent - Additonal information Additional information: The patient was seen here earlier last night and was treated for a nosebleed f rom his left nostril.He went home and it started bleeding again. The bleeding has persisted since. He denies any recent injury to his nose. He says that it has been many years since he has had any other nosebleeding. He is not on any anticoagulant medications. Review of Systems Constitutional: denies: Fever, Chills, Sweats Nose: reports: Epistaxis. denies: Rhinorrhea / runny nose, Congestion, Sinus pressure / pain, Foreign Body Cardiac: denies: Chest pain / pressure, Palpitations, Pedal edema, Calf pain Respiratory: denies: Dyspnea, Cough, Hemoptysis GI: denies: Abdominal Pain, Nausea, Vomiting, Constipation, Diarrhea PD PAST MEDICAL HISTORY - Past Medical History Cardiovascular: Hypertension Respiratory: None Endocrine/Autoimmune: Type 2 diabetes GI: None : Nocturia HEENT: None Psych: Claustrophobia Musculoskeletal: None Derm: None - Past Surgical History Past Surgical History: Yes - Present Medications Home Medications: Ambulatory Orders Medication Instructions Recorded Confirmed Acetaminophen [Tylenol] 325 mg PO Q6H PRN 06/10/17 09/06/19 Calcium Carbonate/Vitamin D3 1 tab PO DAILY 06/10/17 09/06/19 [Calcium 600-Vit D3 400 Tablet] Ferrous Sulfate 325 mg PO BID 06/10/17 09/06/19 Lisinopril/Hydrochlorothiazide 1 tab PO DAILY 06/10/17 09/06/19 [Lisinopril-Hctz 10-12.5 mg Tab] Tamsulosin [Flomax] 1 tab PO DAILY 06/10/17 09/06/19 Metformin HCl [Metformin HCl ER] 2 tab PO BID 01/29/18 09/06/19 Sertraline HCl 1 tab PO DAILY 01/29/18 09/06/19 Esomeprazole Magnesium 1 cap PO BID 07/28/18 09/06/19 Insulin NPH Hum/Reg Insulin Hm 50 units SUBQ BID 10/29/18 09/06/19 [Humulin 70/30 Kwikpen] Oxymetazoline HCl [Afrin] 1 spray NS BID #1 bottle 01/28/20 - Allergies Allergies/Adverse Reactions: Allergies Allergy/AdvReac Type Severity Reaction Status Date / Time shellfish derived Allergy Emesis Verified 09/06/19 10:44 - Social History Does the pt smoke?: No Smoking Status: Never smoker Does the pt drink ETOH?: No Does the pt have substance abuse?: No - Immunizations Immunizations are current?: Yes PD ED PE NORMAL - Vitals Vital signs reviewed: Yes - HEENT HEENT: PERRL, EOMI, Other (Moderate active bleeding from the left nostril. It is unclear whether this is anterior or posterior bleeding.) - Neck Neck: Supple, no meningeal sign - Cardiac Cardiac: RRR, No murmur - Respiratory Respiratory: Clear bilaterally - Abdomen Abdomen: Normal bowel sounds, Soft, Non tender, Non distended - Derm Derm: Warm and dry - Extremities Extremities: No deformity - Psych Psych: Normal mood, Normal affect Results - Vitals Vitals: Vital Signs - 24 hr 01/29/20 01/29/20 01:30 04:29 Temperature 36 C L Heart Rate 93 Blood Pressure 98/82 H 108/58 L O2 Saturation 94 93 Oxygen O2 Source [With Activity] Nasal cannula O2 Source Room air Procedures - Epistaxis Site: Left, Cannot determine Preparation: Clots removed, Afrin Treatment: Packing inserted Other: Observed - no bleeding, Pt tolerated well, Referred to ENT PD MEDICAL DECISION MAKING - ED course Complexity details: d/w patient (I had placed packing twice. The patient accidentally pulled on the string with his initial packing and dislodged it. Therefore a second placement was performed and the patient tolerated it well. Given that this is his second visit for this I have suggested that he follow-up with an ENT in [facility]) Departure - Departure Disposition: 01 Home, Self Care Clinical Impression: Epistaxis Condition: Stable Record reviewed to determine appropriate education?: Yes Instructions: Nosebleed Follow-Up: Arnoldo Stephens MD [Physician No Access] - Within 3 Days Discharge Date/Time: 01/29/20 04:38
[2020-01-29 06:10] VITALS: BP 93/49
== END 2020-01-29 06:22 | disposition home or self-care (01) ==
LOC: EDUNIT# → ED 01:19
DX: R04.0 Epistaxis (principal); E11.9 Type 2 diabetes mellitus without complications; Z79.4 Long term (current) use of insulin; I10 Essential (primary) hypertension
CPT/HCPCS: 30901; 99282; 99283; A9270

== ENCOUNTER 2020-01-30 11:46 | Outpatient (CLI) | payer MEDICARE | END 2020-01-30 11:47 | disposition critical access hospital (66) | LOC: EMS 11:46 | PROVIDERS: ATTEND Surgery | DX: R19.7 Diarrhea, unspecified (principal); K92.1 Melena | CPT/HCPCS: A0425; A0427 ==

== ENCOUNTER 2020-01-30 12:01 | Inpatient (IN) | payer MEDICARE ==
[2020-01-30] MEDS ORDERED: PANTOPRAZOLE 40 MG VIAL IVP STA (12:11)
--- NOTE | 2020-01-30 12:14 | ED Physician Documentation ---
PD HPI GI BLEED - Stated complaint Stated Complaint: GI BLEED - History obtained from History obtained from: EMS - Additional information Additional information: This is a 74-year-old gentleman who presents by ambulance for evaluation of pot ential GI bleed. He has been seen twice in the last couple of days for nosebleed and has a nasal packing in place on the left side. Over the last 3 days or so it is reported that he has had bloody diarrhea. Due to a developmental delay he is in assisted living and is unable to give much of a history that is useful. He denies any pain. Review of documents that accompany him show that he is full code, not on any blood thinners. Review of an admission in 2016 show that he had a GI bleed of uncertain known source, upper and lower endoscopies demonstrated gastritis, diverticula and polyps but unclear source of anemia. On that admission he required 4 units of blood. Prior to arrival he did have some low blood pressures, in the mid 70s over mid 40s range. Review of Systems Unable to obtain: Confused PD PAST MEDICAL HISTORY - Past Medical History Cardiovascular: Hypertension Respiratory: None Endocrine/Autoimmune: Type 2 diabetes GI: None : Nocturia HEENT: None Psych: Claustrophobia Musculoskeletal: None Derm: None - Past Surgical History Past Surgical History: Yes - Present Medications Home Medications: Ambulatory Orders Medication Instructions Recorded Confirmed Acetaminophen [Tylenol] 325 mg PO Q6H PRN 06/10/17 09/06/19 Calcium Carbonate/Vitamin D3 1 tab PO DAILY 06/10/17 09/06/19 [Calcium 600-Vit D3 400 Tablet] Ferrous Sulfate 325 mg PO BID 06/10/17 09/06/19 Lisinopril/Hydrochlorothiazide 1 tab PO DAILY 06/10/17 09/06/19 [Lisinopril-Hctz 10-12.5 mg Tab] Tamsulosin [Flomax] 1 tab PO DAILY 06/10/17 09/06/19 Metformin HCl [Metformin HCl ER] 2 tab PO BID 01/29/18 09/06/19 Sertraline HCl 1 tab PO DAILY 01/29/18 09/06/19 Esomeprazole Magnesium 1 cap PO BID 07/28/18 09/06/19 Insulin NPH Hum/Reg Insulin Hm 50 units SUBQ BID 10/29/18 09/06/19 [Humulin 70/30 Kwikpen] Oxymetazoline HCl [Afrin] 1 spray NS BID #1 bottle 01/28/20 - Allergies Allergies/Adverse Reactions: Allergies Allergy/AdvReac Type Severity Reaction Status Date / Time shellfish derived Allergy Emesis Verified 01/30/20 12:10 - Social History Does the pt smoke?: No Smoking Status: Never smoker Does the pt drink ETOH?: No Does the pt have substance abuse?: No - Immunizations Immunizations are current?: Yes PD ED PE NORMAL - Vitals Vital signs reviewed: Yes - General General: Other (Alert oriented to person and place but not very well for events.) - HEENT HEENT: PERRL, EOMI, Other (Nasal tampon in the left nares without signs of recent bleeding.) - Neck Neck: Supple, no meningeal sign, No bony TTP - Cardiac Cardiac: RRR, No murmur - Respiratory Respiratory: No respiratory distress, Clear bilaterally - Abdomen Abdomen: Soft, Non tender - Back Back: No CVA TTP, No spinal TTP - Derm Derm: Normal color, Warm and dry - Extremities Extremities: No edema, No calf tenderness / cord - Neuro Neuro: No motor deficit, No sensory deficit Results - Vitals Vitals: Vital Signs - 24 hr 01/30/20 01/30/20 01/30/20 12:10 12:30 13:20 Temperature 36.5 C Heart Rate 100 101 H 106 H Respiratory 22 23 20 Rate Blood Pressure 98/58 L 78/47 L 70/56 L O2 Saturation 98 95 98 01/30/20 01/30/20 13:30 14:27 Temperature 35.7 C L Heart Rate 119 H 111 H Respiratory 16 21 Rate Blood Pressure 74/51 L 79/46 L O2 Saturation 96 Oxygen O2 Source [With Activity] Nasal cannula O2 Source Room air - Labs Labs: Laboratory Tests 01/30/20 01/30/20 01/30/20 12:15 12:15 13:18 WBC 12.8 H RBC 3.23 L Hgb 9.5 L Hct 30.1 L MCV 93.2 MCH 29.4 MCHC 31.6 L RDW 14.3 Plt Count 259 MPV 11.1 Neut # (Auto) 10.6 H Lymph # (Auto) 1.0 L [place] # (Auto) 1.1 H Eos # (Auto) 0.0 Baso # (Auto) 0.1 Absolute Nucleated RBC 0.00 Nucleated RBC % 0.0 Sodium 136 Potassium 5.5 H Chloride 101 Carbon Dioxide 19 L Anion Gap 16.0 H BUN 91 H* Creatinine 2.4 H Estimated GFR (MDRD) 27 L Glucose 114 H Calcium 10.3 Total Bilirubin 1.0 AST 133 H ALT 25 Alkaline Phosphatase 49 Total Protein 7.0 Albumin 3.7 Globulin 3.3 Albumin/Globulin Ratio 1.1 Blood Type AB NEGATIVE Antibody Screen NEGATIVE Crossmatch IS Only See Detail Procedures - General procedure General procedure: An arterial line was placed after prep and drape in the right radial artery, it was successful without complications. Consent was emergent. - Central Line Central Line Preparation: Unable to obtain consent, Ultrasound used Central line location: Right IJ Central line type: Triple lumen (7F) Central line aftercare: Chlorhexidine disc placed, Secured, Placement confirmed, No pneumothorax, No complications, Bundle checklist complete, Pt tolerated well - Procedural sedation Sedation prep: Time out completed, ASA 2 - mild disease. No: Informed consent (unable but emergent for central line) Sedation medications: ketamine (200mg IVP) Patient status during sedation: Responds to tactile, Maintained airway Sedation recovery: Recovered uneventfully Time in sedation (Minutes): 20 PD MEDICAL DECISION MAKING - ED course ED course: 74-year-old gentleman who has been seen a couple of times for nosebleeds presents with hypotension and a report of bloody stools. Looks like he had a similar episode 4 years ago without a "smoking gun" on upper and lower endoscopies, he did have some gastritis, diverticula, and a polyp but no sign of active bleeding. It looks like the nosebleed is hemostatic, there is no evidence of recent active bleeding on the nasal tampon. He does have some low blood pressures here, in the mid 70 over mid 40 range. He appears well and nontoxic though. He did have a three-point drop in his hemoglobin over the last couple of days. Spoke with Dr. Barkley, the on-call surgeon who plans to take him to the OR for upper endoscopy. We spoke around 1:05 PM. Subsequently called the hospitalist for admission. Updated his niece, the POA by phone and she is in agreement with the plan of care. Subsequently the gentleman became more hypotensive and encephalopathic. And necessitated central line placement for large volume blood products and pressors. He was given some ketamine because he had been fairly cantankerous earlier in his visit and he tolerated this well. Right IJ central line was placed without issue. Because of continued hypotension blood was started despite the hemoglobin of 9.5. Also started some pressors, specifically Levophed. A right radial art line was placed. Both [employer] and surgery were at the bedside for these procedures preparing to take him to the OR. [employer] intubated him before the OR. While in the ER. Updated the niece/POA by phone again at 3:15 PM and she still agrees with the current plan of care, understands that he was getting sicker on his way to the OR. - Critical Care Time(min): 60 Time Includes: Direct patient care, Review records, Reassess patient, Document care, Coordinate care, Medical consult, Family consult for tx dec, See progress note Data interpretation: Labs, Pulse ox Procedures included in critical care time: Peripheral IV Procedures excluded from critical care time: Central IV, Arterial cannulation Departure - Departure Disposition: 66 [facility] DC/Xfer Clinical Impression: Epistaxis, JUANA (acute kidney injury) Hypotension Qualifiers: Hypotension type: orthostatic hypotension Qualified Code(s): I95.1 - Orthostatic hypotension GI bleed Qualifiers: GI bleed type/associated pathology: unspecified gastrointestinal hemorrhage type Qualified Code(s): K92.2 - Gastrointestinal hemorrhage, unspecified Anemia Qualifiers: Anemia type: other cause Other causes of anemia: acute posthemorrhagic Qualified Code(s): D62 - Acute posthemorrhagic anemia Condition: Serious
[2020-01-30] MEDS ORDERED: SODIUM CHLORIDE 0.9% 500 ML IV STA (12:43)
[2020-01-30 12:51] LABS: BASOPHILS # (AUTO) 0.1 10^3/uL (0.0-0.1); BASOPHILS % (AUTO) 0.4 %; EOSINOPHILS % (AUTO) 0.2 %; HGB - HEMOGLOBIN 9.5 g/dL (14.0-18.0); LYMPHOCYTES % (AUTO) 7.7 %; MEAN CORPUSCULAR HEMOGLOBIN 29.4 pg (27.0-31.0); MEAN CORPUSCULAR HGB CONC 31.6 g/dL (32.0-36.0); MEAN CORPUSCULAR VOLUME 93.2 fL (80.0-94.0); MEAN PLATELET VOLUME 11.1 fL (7.4-11.4); MONOCYTES # (AUTO) 1.1 10^3/uL (0.0-1.0); MONOCYTES % (AUTO) 8.8 %; NEUTROPHILS # (AUTO) 10.6 10^3/uL (1.5-6.6); NEUTROPHILS % (AUTO) 82.3 %; PLT - PLATELET COUNT 259 10^3/uL (130-450); RED BLOOD COUNT 3.23 10^6/uL (4.70-6.10); RED CELL DISTRIBUTION WIDTH 14.3 % (12.0-15.0); WHITE BLOOD COUNT 12.8 x10^3/uL (4.8-10.8)
[2020-01-30 13:15] LABS: ALBUMIN 3.7 g/dL (3.2-5.5); ALBUMIN/GLOBULIN RATIO 1.1 (1.0-2.2); CALCIUM 10.3 mg/dL (8.5-10.3); CREATININE 2.4 mg/dL (0.6-1.2)
[2020-01-30] MEDS ORDERED: KETAMINE 500 MG/10 ML VIAL IVP STA (13:35)
[2020-01-30] MEDS ORDERED: SODIUM CHLORIDE 0.9% 1,000 ML IV STA (13:35)
--- NOTE | 2020-01-30 14:18 | HISTORY & PHYSICAL EXAMINATION ---
Chief Complaint - Chief Complaint Chief Complaint: Bloody diarrhea GI Bleed Admit Template - Admitted From Admitted from: ED - History Obtained From Records Reviewed: Old records reviewed, Other (Physician's notes) History obtained from: Other (Physician) Exam limitations: Other (Patient is sedated for central line placement at the time of my examination. Dr. Telles states that he was lethargic and minimally responsive prior to sedation.) - History of Present Illness Bleeding quality: reports: Jori blood stool Associated symptoms: reports: Vomiting PMH/PSH - Past Medical History Cardiovascular: positive: Hypertension Respiratory: positive: None Endocrine/Autoimmune: positive: Type 2 diabetes GI: positive: None : positive: Nocturia HEENT: positive: None Psych: positive: Claustrophobia Musculoskeletal: positive: None Derm: positive: None MRSA Hx?: No Social & Family Hx - Living Situation Living Arrangement: Assisted living (Due to developmental delay. He has a sister who is on her way to the hospital. Dr. Telles spoke with the patient's emergency contacts.) - Social History Does the pt smoke?: No Smoking Status: Never smoker Does the pt drink ETOH?: No Does the pt have substance abuse?: No - POLST POLST Status: Full Code Meds/Allgy - Home Medications Home Medications: Ambulatory Orders Medication Instructions Recorded Confirmed Acetaminophen [Tylenol] 325 mg PO Q6H PRN 06/10/17 09/06/19 Calcium Carbonate/Vitamin D3 1 tab PO DAILY 06/10/17 09/06/19 [Calcium 600-Vit D3 400 Tablet] Ferrous Sulfate 325 mg PO BID 06/10/17 09/06/19 Lisinopril/Hydrochlorothiazide 1 tab PO DAILY 06/10/17 09/06/19 [Lisinopril-Hctz 10-12.5 mg Tab] Tamsulosin [Flomax] 1 tab PO DAILY 06/10/17 09/06/19 Metformin HCl [Metformin HCl ER] 2 tab PO BID 01/29/18 09/06/19 Sertraline HCl 1 tab PO DAILY 01/29/18 09/06/19 Esomeprazole Magnesium 1 cap PO BID 07/28/18 09/06/19 Insulin NPH Hum/Reg Insulin Hm 50 units SUBQ BID 10/29/18 09/06/19 [Humulin 70/30 Kwikpen] Oxymetazoline HCl [Afrin] 1 spray NS BID #1 bottle 01/28/20 - Allergies Allergies/Adverse Reactions: Allergies Allergy/AdvReac Type Severity Reaction Status Date / Time shellfish derived Allergy Emesis Verified 01/30/20 12:10 Review of Systems - Other Findings Other Findings: Unable to obtain Exam - Vital Signs Reviewed Vital Signs: Yes Vital Signs: Vital Signs x48h Temp Pulse Resp BP Pulse Ox 01/30/20 13:30 119 H 16 74/51 L 96 01/30/20 13:20 106 H 20 70/56 L 98 01/30/20 12:30 101 H 23 78/47 L 95 01/30/20 12:10 36.5 C 100 22 98/58 L 98 - Physical Exam General Appearance: positive: Lethargic Eyes Bilateral: positive: EOMI, Conjunctivae nml, No scleral icterus ENT: positive: Other (Nasal tampon in place in the left nare) Respiratory: positive: Breath sounds nml Cardiovascular: positive: Tachycardia Abdomen: positive: Other (Appears distended but soft. Unknown if this is baseline condition. Active bowel sounds) Results - Lab Results Fish Bones: 01/30/20 12:15 01/30/20 12:15 Other Lab Results: Lab Results x24hrs 01/30/20 01/30/20 01/30/20 Range/Units 13:18 12:15 12:15 WBC 12.8 H (4.8-10.8) x10^3/uL RBC 3.23 L (4.70-6.10) 10^6/uL Hgb 9.5 L (14.0-18.0) g/dL Hct 30.1 L (42.0-52.0) % MCV 93.2 (80.0-94.0) fL MCH 29.4 (27.0-31.0) pg MCHC 31.6 L (32.0-36.0) g/dL RDW 14.3 (12.0-15.0) % Plt Count 259 (130-450) 10^3/uL MPV 11.1 (7.4-11.4) fL Neut # (Auto) 10.6 H (1.5-6.6) 10^3/uL Lymph # (Auto) 1.0 L (1.5-3.5) 10^3/uL [place] # (Auto) 1.1 H (0.0-1.0) 10^3/uL Eos # (Auto) 0.0 (0.0-0.7) 10^3/uL Baso # (Auto) 0.1 (0.0-0.1) 10^3/uL Absolute Nucleated RBC 0.00 x10^3/uL Nucleated RBC % 0.0 /100WBC Sodium 136 (135-145) mmol/L Potassium 5.5 H (3.5-5.0) mmol/L Chloride 101 (101-111) mmol/L Carbon Dioxide 19 L (21-32) mmol/L Anion Gap 16.0 H (6-13) BUN 91 H* (6-20) mg/dL Creatinine 2.4 H (0.6-1.2) mg/dL Estimated GFR (MDRD) 27 L (>89) Glucose 114 H (70-100) mg/dL Calcium 10.3 (8.5-10.3) mg/dL Total Bilirubin 1.0 (0.2-1.0) mg/dL AST 133 H (10-42) IU/L ALT 25 (10-60) IU/L Alkaline Phosphatase 49 (42-121) IU/L Total Protein 7.0 (6.7-8.2) g/dL Albumin 3.7 (3.2-5.5) g/dL Globulin 3.3 (2.1-4.2) g/dL Albumin/Globulin Ratio 1.1 (1.0-2.2) Blood Type AB NEGATIVE Antibody Screen NEGATIVE Crossmatch IS Only See Detail - Other Other Results/Comments: Acute anemia and hypovolemia with hypovolemic shock. The patient received a karan tral line in the ED. He will be transferred to the OR for emergent EGD to try to identify and control a source of hemorrhage. We are unable to obtain written consent due to the patient's mental status. Dr. Stringer spoke with the family and received verbal consent to proceed with EGD. He will be admitted by the Hospitalist service to the CCU to follow. Blood has been ordered.
--- NOTE | 2020-01-30 14:38 | XRAY Report ---
PROCEDURE: Chest for Line Placement INDICATIONS: central line TECHNIQUE: One view of the chest was acquired. COMPARISON: 2 views of the chest dated 11/04/2018. FINDINGS: Surgical changes and devices: There is a central venous catheter, the tip of which is projected over the cavoatrial junction. Lungs and pleura: No pleural effusions or pneumothorax. The left hemidiaphragm is obscured suggestin g consolidation or atelectasis at the left lung base. There are diffuse interstitial opacities. Mediastinum: Mediastinal contours appear normal. Heart size is normal. Bones and chest wall: No suspicious bony lesions. Overlying soft tissues appear unremarkable. IMPRESSION: 1. Central venous catheter projected over the cavoatrial junction. 2. Atelectasis or consolidation at the left lung base. 3. Diffuse interstitial opacities suggesting edema. Reviewed by: Kathy Tuttle MD on 01/30/2020 2:37 PM PDT Approved by: Kathy Tuttle MD on 01/30/2020 2:37 PM PDT Station ID: [id number]
--- NOTE | 2020-01-30 15:21 | PROVIDER PROGRESS NOTE ---
Subjective - Prog Note Date Prog Note Date: 01/30/20 Prog Note Time: 15:19 - Subjective Subjective: No blood seen in the upper GI tract on EGD and no stigmata of recent bleeding. Willing to provide colonoscopy, if beneficial, as soon as patient is stable enough to prep. Objective - Vital Signs/Intake & Output Vital Signs: Vital Signs x48h Temp Pulse Resp BP Pulse Ox 01/30/20 14:27 35.7 C L 111 H 21 79/46 L 01/30/20 13:30 119 H 16 74/51 L 96 01/30/20 13:20 106 H 20 70/56 L 98 01/30/20 12:30 101 H 23 78/47 L 95 01/30/20 12:10 36.5 C 100 22 98/58 L 98 Intake & Output: Intake & Output 01/27/20 01/28/20 01/29/20 01/30/20 23:59 23:59 23:59 23:59 Intake Total 1500 Balance 1500 - Lab Results Fish Bones: 01/30/20 12:15 01/30/20 12:15 Other Labs: Lab Results x24hrs 01/30/20 01/30/20 01/30/20 Range/Units 13:18 12:15 12:15 WBC 12.8 H (4.8-10.8) x10^3/uL RBC 3.23 L (4.70-6.10) 10^6/uL Hgb 9.5 L (14.0-18.0) g/dL Hct 30.1 L (42.0-52.0) % MCV 93.2 (80.0-94.0) fL MCH 29.4 (27.0-31.0) pg MCHC 31.6 L (32.0-36.0) g/dL RDW 14.3 (12.0-15.0) % Plt Count 259 (130-450) 10^3/uL MPV 11.1 (7.4-11.4) fL Neut # (Auto) 10.6 H (1.5-6.6) 10^3/uL Lymph # (Auto) 1.0 L (1.5-3.5) 10^3/uL [place] # (Auto) 1.1 H (0.0-1.0) 10^3/uL Eos # (Auto) 0.0 (0.0-0.7) 10^3/uL Baso # (Auto) 0.1 (0.0-0.1) 10^3/uL Absolute Nucleated RBC 0.00 x10^3/uL Nucleated RBC % 0.0 /100WBC Sodium 136 (135-145) mmol/L Potassium 5.5 H (3.5-5.0) mmol/L Chloride 101 (101-111) mmol/L Carbon Dioxide 19 L (21-32) mmol/L Anion Gap 16.0 H (6-13) BUN 91 H* (6-20) mg/dL Creatinine 2.4 H (0.6-1.2) mg/dL Estimated GFR (MDRD) 27 L (>89) Glucose 114 H (70-100) mg/dL Calcium 10.3 (8.5-10.3) mg/dL Total Bilirubin 1.0 (0.2-1.0) mg/dL AST 133 H (10-42) IU/L ALT 25 (10-60) IU/L Alkaline Phosphatase 49 (42-121) IU/L Total Protein 7.0 (6.7-8.2) g/dL Albumin 3.7 (3.2-5.5) g/dL Globulin 3.3 (2.1-4.2) g/dL Albumin/Globulin Ratio 1.1 (1.0-2.2) Blood Type AB NEGATIVE Antibody Screen NEGATIVE Crossmatch IS Only See Detail
[2020-01-30 16:03] LABS: INR 1.3 (0.8-1.2); PT - PROTHROMBIN TIME 14.7 secs (9.9-12.6)
[2020-01-30] MEDS ORDERED: PROPOFOL 200 MG/20 ML VIAL IVP ONE (16:14)
[2020-01-30] MEDS ORDERED: ONDANSETRON 4 MG/2 ML VIAL IVP PRN (16:19)
--- NOTE | 2020-01-30 16:20 | CONSULTATION NOTE ---
Consultation Report: I arrived to ER to pre-op patient for EGD for GI bleed, Dr Polo at bedside inserting central line, patient obtunded with some airway obstruction. I assisted by inserting #9 oral airway and performing jaw thrust while Dr. Polo completed line insertion. Dr Barkley at bedside. Patient hypotensive and started on levophed gtt by RN, ephedrine and neosynephrine boluses by me while I prepared for intubation. I was unable to perform preanesthesia evaluation or obtain consent. Dr. Polo stated he obtained a verbal consent from the patients family. See anesthesia record for details. Patient was transferred to ICU intubated, supported on levophed. Report to RN and care assumed. Hospitalist at bedside prior to my departure.
[2020-01-30] MEDS: PROPOFOL 500 MG/50 ML 500 MG/50 ML VIAL IV SCH ×3 (16:21→22:09)
--- NOTE | 2020-01-30 16:23 | ANESTHESIA POST OP EVALUATION ---
Anesthesia Post Eval - Post Anesthesia Eval Vitals: Last Vital Signs Temp 36.6 C 01/30/20 15:45 Pulse 102 H 01/30/20 15:45 Resp 14 01/30/20 15:45 BP 94/64 01/30/20 15:45 Pulse Ox 98 01/30/20 15:34 CV Function Including HR & BP: positive: Additional Therapies Ordered (On levophed for BP support) Pain Control: positive: Satisfactory Nausea & Vomiting: positive: Negative Mental Status: positive: Other (obtunded) Respiratory Status: Other (intubated on vent by RT) Hydration Status: Satisfactory Anesthesia Complications: positive: None
[2020-01-30] MEDS: SODIUM CHLORIDE FLUSH 0.9% 10 ML SYRINGE IVP SCH (16:33)
[2020-01-30] MEDS: SODIUM CHLORIDE 0.9% 1,000 ML IV SCH (16:33)
--- NOTE | 2020-01-30 16:43 | XRAY Report ---
PROCEDURE: Chest for Line Placement INDICATIONS: verify OGT placement TECHNIQUE: One view of the chest was acquired. COMPARISON: 2 views of the chest dated 11/04/2018 FINDINGS: Surgical changes and devices: There is a central venous catheter, the tip of which is projected over the cavoatrial junction. Lungs and pleura: Lung volumes are low. The left hemidiaphragm is obscured. No pleural effusions or p neumothorax. There are diffuse interstitial opacities bilaterally. Mediastinum: Mediastinal contours appear normal. Heart size is enlarged, as before. Bones and chest wall: No suspicious bony lesions. Overlying soft tissues appear unremarkable. IMPRESSION: 1. Cardiomegaly and interstitial opacities suggesting congestive failure. 2. Obscured left hemidiaphragm suggesting consolidation at the left lung base versus atelectasis. Reviewed by: Kathy Tuttle MD on 01/30/2020 4:41 PM PDT Approved by: Kathy Tuttle MD on 01/30/2020 4:41 PM PDT Station ID: [id number]
[2020-01-30 16:51] LABS: ABG HCO3 18.7 mmol/L (22.0-26.0); ABG OXYGEN SATURATION 99 % (94-98); ABG PCO2 41 mmHg (34-45); ABG PH 7.26 (7.35-7.45); ABG PO2 141 mmHg (80-100)
[2020-01-30 17:41] LABS: MAGNESIUM 2.4 mg/dL (1.7-2.8); PHOSPHORUS 5.8 mg/dL (2.5-4.6)
--- NOTE | 2020-01-30 18:09 | XRAY Report ---
PROCEDURE: Chest for Line Placement INDICATIONS: verified OG tube placement TECHNIQUE: One view of the chest was acquired. COMPARISON: Note is made of a comparison chest plain films 01/30/2020 earlier today. FINDINGS: Surgical changes and devices: Endotracheal tube is normal position, esophagogastric tube positioning is indeterminate due to the light film technique. Central line appears to extend to the atrial caval junction without pneumothorax.. Lungs and pleura: No pleural effusions or pneumothorax. Lungs are difficult to accurately assess du e to large body habitus and light film technique. A pulmonary edema pattern appears present. Pneumoni a may be present superimposed greater on the right than the left.. Mediastinum: Mediastinal contours appear normal. Heart size is normal. Bones and chest wall: No suspicious bony lesions. Overlying soft tissues appear unremarkable. IMPRESSION: Central line from a right internal jugular approach extends to the atrial caval junction. Endotrachea l tube positioning normal. Esophagogastric tube positioning is not established by this study due to l ight film technique. Generalized mild pulmonary edema pattern with asymmetric left greater than right patchy airspace disease suspicious for pneumonia. Reviewed by: Hal Draper MD on 01/30/2020 6:07 PM PDT Approved by: Hal Draper MD on 01/30/2020 6:07 PM PDT Station ID: [id number]
[2020-01-30 19:07] LABS: BILIRUBIN,URINE NEGATIVE (NEGATIVE); GLUCOSE, URINE (UA) NEGATIVE (NEGATIVE); KETONES,URINE (UA) NEGATIVE (NEGATIVE); LEUKOCYTE ESTERASE, URINE NEGATIVE (NEGATIVE); NITRITE,URINE NEGATIVE (NEGATIVE); OCCULT BLOOD,URINE TRACE-INTA (NEGATIVE); PROTEIN,URINE NEGATIVE (NEGATIVE); UROBILINOGEN,URINE 0.2 (NORMAL) E.U./dL (NORMAL)
[2020-01-30 19:08] LABS: CLARITY,URINE CLEAR (CLEAR)
--- NOTE | 2020-01-30 19:16 | HISTORY & PHYSICAL EXAMINATION ---
DATE OF SERVICE: 01/30/2020 Physician: Lucrecia Lira MD HISTORY OF PRESENT ILLNESS: This is a 74-year-old white male who has a history of developmental delay and therefore, cognitive impairment and lives in an assisted living facility. The patient has had a history of hypertension, diabetes, claustrophobia and prior gastrointestinal bleeds. In 2016, he was admitted for a GI bleed and had EGD and colonoscopy and no source was found, he did require 4 units of packed red blood cells during that hospital stay. Patient presented to the ER 2 days ago with a nosebleed and required insertion of a tampon, which was put in the left nostril. At that time, his hemoglobin was 12.5. Today at the assisted living facility, the staff reported that he had a lot of bright red blood per rectum and melena and he was brought to the ER. He was found to have a completely dry tampon in that left nostril. He appeared pale and his blood pressure was 60/40. Other labs show that his hemoglobin is 9, creatinine up to 2.5 and BUN very elevated at 91. Patient is to be taken to the operating room emergently for EGD. He was intubated in the ER and started on sedation in preparation for the EGD. PAST MEDICAL HISTORY: 1. Developmental delay. 2. Prior GI bleed 4 years ago with no source found. 3. Recent epistaxis. 4. Diabetic on insulin. 5. BPH. 6. Osteoarthritis. ALLERGIES: SHELLFISH. MEDICATIONS 1. Tylenol p.r.n. 2. Calcium and Vitamin D3 daily. 3. Esomeprazole b.i.d. 4. Iron 325 mg b.i.d. 5. Insulin 50 units subcutaneous b.i.d. of a 70/30 Humulin mix. 6. Lisinopril/HCTZ 10/12.5 mg daily. 7. Metformin 1000 mg b.i.d. 8. Afrin nasal spray p.r.n. 9. Sertraline 50 mg daily. 10. Tamsulosin 0.4 mg daily. FAMILY HISTORY: No inherited diseases. SOCIAL HISTORY: He is a nonsmoker, drinks no alcohol, has developmental delay and therefore lives permanently in an assisted living facility. REVIEW OF SYSTEMS: This was done from speaking to the ER doctor and the anesthesia doctor and all pertinent positives are listed above, the rest are negative. PHYSICAL EXAMINATION GENERAL: Obese, elderly white male. He is currently intubated, has just left the OR after the procedure. He is gagging and he is also moving all extremities. VITAL SIGNS: Blood pressure 95/61 on Levophed, heart rate 101 in sinus rhythm, afebrile, and he is on the ventilator. HEENT: Reveals endotracheal tube in place. Oral mucosa appears moist. NECK: No JVD. CHEST: Clear anteriorly. HEART: Tachycardic, no audible murmurs. ABDOMEN: Mildly distended. There are decreased bowel sounds. I cannot rule out organomegaly or ascites. EXTREMITIES: No clubbing, cyanosis or edema. NEUROLOGIC: On IV sedation medication. LABORATORY DATA: Sodium 136, potassium 5.5, carbon dioxide 19, BUN 91, creatinine 2.4. His baseline is 1.0, phosphorus 5.8, magnesium 2.4, bilirubin 1.0. AST 133, ALT 25. No lipase was done. White blood count 12.8, hemoglobin 9.5, platelet count 259. INR 1.3. The first blood gas showed a pH of 7.26 with pCO2 of 41 and pO2 of 141. IMAGING: Chest x-ray shows possible CHF and a possible infiltrate versus atelectasis and the ET tube is in good position, but the NG tube is not well seen. EKG (interpreted by myself): Shows sinus tachycardia at a rate of 119 and left bundle branch block. Since his last EKG from 10/2018, the tachycardia is new, but left bundle branch block is old. IMPRESSION 1. Hemorrhagic shock. 2. Gastrointestinal blood loss anemia. 3. History of epistaxis. 4. Mechanical assisted vent. 5. Acute kidney injury. 6. Diabetes, on insulin. 7. Elevated liver function tests. 8. Left bundle branch block. 9. Cognitive impairment. 10. History of developmental delay. PLAN: Admit patient to the ICU on telemetry. Continue with vent support and adjust his settings based on blood gases and ventilatory needs. Follow his blood gas daily while intubated. Adjust the orogastric tube if needed and start suction. Continue IV sedation per protocol, propofol was started in the OR, which will be continued, add Versed drip if needed. The plan will be that if his BP stabilizes, the general surgeon will then have him undergo a bowel prep to undergo colonoscopy. Nothing was found on the emergency EGD for a source of bleeding. Begin IV crystalloids for resuscitation of blood pressure, continue with pressors to achieve a MAP of 60 and continue with blood transfusion that was started in the ER. Follow his electrolytes, CMP daily. Finish the blood transfusion. Follow his hemoglobin q.12 hours. Begin empiric IV b.i.d. Protonix. Begin fingerstick glucose checks for a diabetic, who is not eating and begin IV fluids that contain D5. We will order sliding scale insulin coverage, no long-acting b.i.d. insulin dosing will be used at present. Continue maintaining the nasal tampon in place, because, a discussion with the ER doctor, this was planned to be in place until Friday, 2 more days. CODE STATUS: FULL CODE. DEEP VENOUS THROMBOSIS PROPHYLAXIS: SCDs. ATTESTATION: Patient is expected to be discharged or transferred to another facility within 96 hours: Yes. cc: Pinky Moscoso DO TD: 01/30/2020 18:47 MTD
[2020-01-30] MEDS: SODIUM CHLORIDE FLUSH 0.9% 10 ML SYRINGE IVP PRN (21:02)
[2020-01-30] MEDS: PANTOPRAZOLE 40 MG VIAL IVP SCH (21:02)
[2020-01-30 22:23] LABS: HGB - HEMOGLOBIN 9.4 g/dL (14.0-18.0)
[2020-01-31] MEDS: SODIUM CHLORIDE FLUSH 0.9% 10 ML SYRINGE IVP SCH ×3 (00:31→12:27)
[2020-01-31] MEDS: PROPOFOL 500 MG/50 ML 500 MG/50 ML VIAL IV SCH ×8 (01:29→21:22)
[2020-01-31] MEDS: SODIUM CHLORIDE 0.9% 1,000 ML IV SCH ×3 (02:33→22:57)
[2020-01-31 04:39] LABS: BASOPHILS # (AUTO) 0.1 10^3/uL (0.0-0.1); BASOPHILS % (AUTO) 0.4 %; EOSINOPHILS % (AUTO) 0.1 %; HGB - HEMOGLOBIN 9.7 g/dL (14.0-18.0); LYMPHOCYTES % (AUTO) 6.8 %; MEAN CORPUSCULAR HEMOGLOBIN 29.9 pg (27.0-31.0); MEAN CORPUSCULAR HGB CONC 32.2 g/dL (32.0-36.0); MEAN CORPUSCULAR VOLUME 92.9 fL (80.0-94.0); MEAN PLATELET VOLUME 10.3 fL (7.4-11.4); MONOCYTES # (AUTO) 1.4 10^3/uL (0.0-1.0); MONOCYTES % (AUTO) 9.6 %; NEUTROPHILS # (AUTO) 12.1 10^3/uL (1.5-6.6); NEUTROPHILS % (AUTO) 82.4 %; PLT - PLATELET COUNT 297 10^3/uL (130-450); RED BLOOD COUNT 3.24 10^6/uL (4.70-6.10); RED CELL DISTRIBUTION WIDTH 14.6 % (12.0-15.0); WHITE BLOOD COUNT 14.7 x10^3/uL (4.8-10.8)
[2020-01-31 04:45] LABS: INR 1.3 (0.8-1.2); PT - PROTHROMBIN TIME 14.8 secs (9.9-12.6)
[2020-01-31 04:52] LABS: CALCIUM 9.4 mg/dL (8.5-10.3); CREATININE 1.8 mg/dL (0.6-1.2); MAGNESIUM 2.4 mg/dL (1.7-2.8); PHOSPHORUS 3.5 mg/dL (2.5-4.6)
[2020-01-31] MEDS: MIDAZOLAM DRIP 50 MG/100 ML BAG IV SCH ×2 (04:58→06:07)
[2020-01-31 06:20] LABS: ABG BASE EXCESS -3.8 mmol/L (-2.0-3.0); ABG HCO3 19.3 mmol/L (22.0-26.0); ABG OXYGEN SATURATION 97 % (94-98); ABG PCO2 29 mmHg (34-45); ABG PH 7.45 (7.35-7.45); ABG PO2 98 mmHg (80-100); ABG TCO2 20.2 MMOL/L (21.0-29.0)
[2020-01-31] MEDS ORDERED: ATORVASTATIN 40 MG TABLET NG STA (06:52)
[2020-01-31] MEDS ORDERED: HEPARIN 5,000 UNIT/ML VIAL IVP ONE (07:00)
[2020-01-31] MEDS: ASPIRIN EC 325 MG TABLET PO SCH ×2 (07:02→07:54)
[2020-01-31] MEDS: HEPARIN 25000UNITS/500ML (D5W) 25,000 UNIT/500 ML BAG IV SCH (07:50)
[2020-01-31] MEDS: PANTOPRAZOLE 40 MG VIAL IVP SCH ×2 (07:53→20:26)
--- NOTE | 2020-01-31 10:10 | PHARMACY PROGRESS NOTE ---
- Best Possible Medication History Admit Date and Time: 01/30/20 1533 Processed by: Pharmacy Medication History completed: Yes Patient Interview: Completed Secondary Source(s): Physician records (PATIENT INTERVIEWED BY ACTIVITIES COUNSELOR. MEDICATION LIST OBTAINED FROM [facility] ), Pharmacy records, Insurance records As the person ultimately responsible for medication therapy, providers are able to order a medication from an existing home medication list in [facility] via the "Reconcile Routine" prior to Confirmation of that medication by product support consultant. Such practice is discouraged except when the physician, in their clinical judgment, deems that a medical need exists for a medication without regard to previous use.
[2020-01-31] MEDS: INSULIN REGULAR HUMAN 300 UNIT/3 ML VIAL SUBQ SCH ×2 (12:26→17:45)
--- NOTE | 2020-01-31 14:01 | PROVIDER PROGRESS NOTE ---
Assessment/Plan - Problem List (1) Shock Assessment/Plan: Pressure is still under 90 when his Levophed is decreased. Causes of shock appear to be GI blood loss anemia and cardiogenic shock. Continue with fluids and pressors for BP support (2) Acute IA Assessment/Plan: His admission EKG showed left membranous block which is similar to his prior EKG. The cousin, MICHEL, at bedside stated there was no prior history of cardiac disease in this patient. It is unclear if the shock added to coronary hypoperfusion that led to the IA or if he had a primary IA then cardiomyopathy with poor cardiac output that led to the shock. He is getting aspirin and therapeutic heparin dosing, no beta-pearl or nitrates because of the low blood pressure. Heparin is risky because of the recent epistaxis and GI bleed. The night Hospitalist spoke to the DPOA over the phone and I spoke to her today at bedside, and updated her on the IA and bleeding, and she does not want him transferred for coronary angiography. Medical management is planned. I explained that would mean stabilizing blood pressure and his current IA with new findings of cardiomyopathy, and she was agreeable with this. Because of this, and no plan to transfer for cardiac consultation or coronary angiography, we discussed what full resuscitation would include if he has a cardiac arrest. The DPOA wants him to have natural and therefore a DNR will instituted and a POLST form signed today. (3) Anemia due to GI blood loss Assessment/Plan: After having blood transfusion yesterday, the hemoglobin has been stable today. EGD found no sources of bleeding Follow H/H every 8-12 hours. He is on empiric Protonix. (4) Cardiomyopathy Assessment/Plan: This is a new finding. I suspect he has had prior abnormal LVEF with his chronic LBBB on EKG but the DPOA states it was never worked up and that he had no cardiac complaints or any cardiac diagnoses established. Will plan treatment with beta-blockers, GUSTAVO inhibitor's and spironolactone, when his blood pressure normalizes, not currently while he still needs p.o. orders. He is already on aspirin and statin. There is no plan for transfer for invasive work-up. He is now DNR status. (5) On mechanically assisted ventilation Assessment/Plan: We will not plan any weaning off the vent today, will allow stabilization of blood pressure, because of the acute IA. Will hopefully be able to decrease his pressure tomorrow and then his sedation and work on weaning and extubating (6) JUANA (acute kidney injury) Assessment/Plan: With gentle hydration to avoid pulmonary edema. Avoid nephrotoxins. Follow BMP daily (7) Diabetes mellitus with insulin therapy Assessment/Plan: Begin sliding scale coverage and n.p.o. patient (8) BPH (benign prostatic hyperplasia) Assessment/Plan: Meds for this at home. We will resume when NG feeds can begin or when extubated and taking p.o. (9) History of COPD Assessment/Plan: There was no description of dyspnea, no wheezing heard at presentation before he was intubated. Have high airway pressures to suggest bronchospasm currently on the vent - Current Meds Current Meds: Current Medications Generic Name Dose Route Start Last Admin Trade Name Freq PRN Reason Stop Dose Admin Aspirin 325 mg 01/31/20 06:39 01/31/20 07:54 Ecotrin PO Not Given DAILY JOHANNY Propofol 500 mg in 50 mls @ 6.366 mls/hr 01/30/20 17:00 01/31/20 13:33 Diprivan IV 30 mcg/kg/min .Q7H52M JOHANNY 19.098 mls/hr Administration Protocol 10 MCG/KG/MIN Sodium Chloride 1,000 mls @ 100 mls/hr 01/30/20 17:00 01/31/20 12:40 Normal Saline 0.9% IV 100 mls/hr .Q10H JOHANNY Administration Heparin Sodium/Dextrose 25,000 unit in 500 mls @ 20 mls/hr 01/31/20 07:00 01/31/20 07:50 IV 20 mls/hr .Q25H JOHANNY 20 mls/hr Administration Protocol Insulin Human Regular 1 - 5 unit 01/31/20 12:09 01/31/20 12:26 Humulin R SUBQ 2 unit Q6HR JOHANNY Administration Protocol Pantoprazole Sodium 40 mg 01/30/20 21:00 01/31/20 07:53 Protonix IVP 40 mg BID JOHANNY Administration Sodium Chloride 10 ml 01/30/20 17:00 01/31/20 12:27 Normal Saline Flush 0.9% IVP 10 ml 0100,0900,1700 JOHANNY Administration Sodium Chloride 10 ml 01/30/20 16:19 01/30/20 21:02 Normal Saline Flush 0.9% IVP 20 ml PRN PRN Administration NEEDED PER PROVIDER ORDERS - Lab Result Fish Bone Diagrams: 01/31/20 11:00 01/31/20 04:27 - Additional Planning My Orders: My Active Orders 01/30/20 16:19 Activity Orders [RC] Q2HR Daily Weight [RC] 0600 Gomez Insertion [RC] QSHIFT IO [RC] Q1HR IV Insert [RC] ONCE Initiate Bowel Care Protocol [RC] QSHIFT Initiate ICU Electrolyte Prot. [RC] .protocol Initiate Line Care Protocol [RC] .protocol Initiate Personal Care Protoco [RC] .protocol Vital Signs [RC] Q1HR Ondansetron Inj [Zofran Inj] 4 mg IVP Q6HR PRN Sodium Chloride Flush 0.9% [Normal Saline Flush 0.9%] 10 ml IVP PRN PRN Code Status [OTHERS] Routine Condition of Patient [OTHERS] Routine DVT Prophylaxis [OTHERS] Routine 01/30/20 16:20 NPO [DIET] 01/30/20 16:22 Arterial Line Insertion - ICU [RC] Routine Blood Glucose POC [RC] 0000,0600,1200,1800 Central Line Insertion [RC] Routine Oral Care - Nursing [RC] Routine Turn and Reposition [RC] Routine 01/30/20 16:23 Oxygen Therapy [RC] Routine SCDs [RC] QSHIFT 01/30/20 16:24 RT - Obtain Arterial Specimen [RC] .ONCE 01/30/20 16:25 General Surgery Consult [CONS] Routine 01/30/20 16:26 Telemetry- [RC] Q4HR 01/30/20 16:28 NG Tube Care [RC] Q4HR 01/30/20 16:29 Initiate Ventilator Protocol [RC] .PROTOCOL Ventilator Bundle [RC] Q8H Ventilator Care - ICU [RC] Q4HR 01/30/20 16:30 Initial Ventilator Settings [RC] .ONCE 01/30/20 16:31 Ventilator Bundle Oral Care [RC] Q2H 01/30/20 16:47 RT - Obtain Arterial Specimen [RC] .ONCE 01/30/20 17:00 Propofol 500 mg/50 ml [Diprivan] 500 mg in 50 ml IV 10 mcg/kg/min Sodium Chloride 0.9% [Normal Saline 0.9%] 1,000 ml IV 100 mls/hr Sodium Chloride Flush 0.9% [Normal Saline Flush 0.9%] 10 ml IVP 0100,0900,1700 01/30/20 18:33 Restraints Safety Check [RC] Q1HR Restraints [RC] Q24H 01/30/20 21:00 Pantoprazole [Protonix] 40 mg IVP BID 01/31/20 10:00 Dextrose 5% [D5w] 242 ml NORepinephrine [Levophed] 8 mg IV 8 mcg/min 01/31/20 12:08 Initiate Hypoglycemia Protocol [RC] .protocol 01/31/20 12:09 Insulin Regular Human [Humulin R] 1 - 5 unit SUBQ Q6HR 01/31/20 17:00 CBC - COMP BLD CT W/AUTO DIFF [HEME] Q12H 02/01/20 05:00 ABG - ARTERIAL BLOOD GAS [BG] DAILYLAB BMP - BASIC METABOLIC PANEL [CHEM] DAILYLAB CBC - COMP BLD CT W/AUTO DIFF [HEME] DAILYLAB CBC - COMP BLD CT W/AUTO DIFF [HEME] Q12H LIPID Panel [CHEM] DAILYLAB 02/01/20 17:00 CBC - COMP BLD CT W/AUTO DIFF [HEME] Q12H 02/02/20 05:00 BMP - BASIC METABOLIC PANEL [CHEM] DAILYLAB CBC - COMP BLD CT W/AUTO DIFF [HEME] DAILYLAB CBC - COMP BLD CT W/AUTO DIFF [HEME] Q12H 02/02/20 17:00 CBC - COMP BLD CT W/AUTO DIFF [HEME] Q12H 02/03/20 05:00 BMP - BASIC METABOLIC PANEL [CHEM] DAILYLAB CBC - COMP BLD CT W/AUTO DIFF [HEME] DAILYLAB 02/04/20 05:00 CBC - COMP BLD CT W/AUTO DIFF [HEME] DAILYLAB Subjective - Subjective Patient Reports: Other (Sedated and on the vent.) Objective Vital Signs: Vital Signs - 24 hr 01/30/20 01/30/20 01/30/20 14:00 14:05 14:10 Temperature Heart Rate 105 H 95 93 Heart Rate [ Monitoring electrodes] Respiratory 25 H 15 21 Rate Blood Pressure 77/51 L 71/41 L 56/41 L Blood Pressure [Left Brachial artery] Blood Pressure [Right Brachial artery] Blood Pressure [Right Radial artery] O2 Saturation 99 99 97 01/30/20 01/30/20 01/30/20 14:15 14:18 14:27 Temperature 35.7 C L Heart Rate 90 97 111 H Heart Rate [ Monitoring electrodes] Respiratory 22 23 21 Rate Blood Pressure 57/37 L 69/42 L 79/46 L Blood Pressure [Left Brachial artery] Blood Pressure [Right Brachial artery] Blood Pressure [Right Radial artery] O2 Saturation 97 97 01/30/20 01/30/20 01/30/20 15:26 15:28 15:31 Temperature Heart Rate 104 H 106 H Heart Rate [ 101 H Monitoring electrodes] Respiratory 19 19 20 Rate Blood Pressure 103/74 98/82 H Blood Pressure [Left Brachial artery] Blood Pressure 103/74 [Right Brachial artery] Blood Pressure [Right Radial artery] O2 Saturation 99 01/30/20 01/30/20 01/30/20 15:33 15:34 15:39 Temperature 36.5 C 36.6 C Heart Rate 107 H 106 H Heart Rate [ 102 H Monitoring electrodes] Respiratory 18 18 19 Rate Blood Pressure 98/82 H 94/64 Blood Pressure [Left Brachial artery] Blood Pressure [Right Brachial artery] Blood Pressure [Right Radial artery] O2 Saturation 98 01/30/20 01/30/20 01/30/20 15:45 15:46 16:01 Temperature 36.6 C Heart Rate 101 H 119 H Heart Rate [ 102 H Monitoring electrodes] Respiratory 14 19 24 Rate Blood Pressure 94/64 108/82 H Blood Pressure [Left Brachial artery] Blood Pressure 94/64 [Right Brachial artery] Blood Pressure [Right Radial artery] O2 Saturation 01/30/20 01/30/20 01/30/20 16:16 16:31 16:45 Temperature Heart Rate 103 H 103 H 107 H Heart Rate [ Monitoring electrodes] Respiratory 26 H 23 24 Rate Blood Pressure 93/46 L 83/42 L 95/50 L Blood Pressure [Left Brachial artery] Blood Pressure [Right Brachial artery] Blood Pressure [Right Radial artery] O2 Saturation 01/30/20 01/30/20 01/30/20 17:00 17:43 18:01 Temperature 36.9 C Heart Rate 103 H Heart Rate [ 101 H Monitoring electrodes] Respiratory 19 Rate Blood Pressure Blood Pressure 96/54 L [Left Brachial artery] Blood Pressure 95/61 [Right Brachial artery] Blood Pressure 102/47 L 108/52 L [Right Radial artery] O2 Saturation 97 01/30/20 01/30/20 01/30/20 18:14 19:00 19:40 Temperature 36.9 C Heart Rate 96 Heart Rate [ 100 Monitoring electrodes] Respiratory 17 Rate Blood Pressure Blood Pressure 96/46 L [Left Brachial artery] Blood Pressure [Right Brachial artery] Blood Pressure 108/53 L 100/56 L [Right Radial artery] O2 Saturation 96 01/30/20 01/30/20 01/30/20 20:00 21:00 21:35 Temperature 36.9 C Heart Rate 92 Heart Rate [ 95 90 Monitoring electrodes] Respiratory 18 18 Rate Blood Pressure Blood Pressure 109/59 L 104/59 L [Left Brachial artery] Blood Pressure [Right Brachial artery] Blood Pressure 111/55 L 109/55 L [Right Radial artery] O2 Saturation 98 98 01/30/20 01/30/20 01/30/20 22:00 23:00 23:30 Temperature 37.0 C Heart Rate 93 Heart Rate [ 93 93 Monitoring electrodes] Respiratory 18 17 Rate Blood Pressure Blood Pressure 103/64 103/78 [Left Brachial artery] Blood Pressure [Right Brachial artery] Blood Pressure 112/56 L 116/57 L [Right Radial artery] O2 Saturation 98 98 01/31/20 01/31/20 01/31/20 00:00 01:00 01:30 Temperature Heart Rate 90 Heart Rate [ 93 90 Monitoring electrodes] Respiratory 21 18 Rate Blood Pressure Blood Pressure 108/60 108/63 [Left Brachial artery] Blood Pressure [Right Brachial artery] Blood Pressure 115/55 L 112/54 L [Right Radial artery] O2 Saturation 97 993 H 01/31/20 01/31/20 01/31/20 02:00 03:00 03:30 Temperature Heart Rate 93 Heart Rate [ 98 92 Monitoring electrodes] Respiratory 22 18 Rate Blood Pressure Blood Pressure 103/61 98/56 L [Left Brachial artery] Blood Pressure [Right Brachial artery] Blood Pressure 107/57 L 111/55 L [Right Radial artery] O2 Saturation 97 97 01/31/20 01/31/20 01/31/20 04:00 05:00 05:15 Temperature 37.5 C Heart Rate 92 Heart Rate [ 91 92 Monitoring electrodes] Respiratory 18 19 Rate Blood Pressure Blood Pressure 97/58 L 112/71 [Left Brachial artery] Blood Pressure [Right Brachial artery] Blood Pressure 113/57 L 108/55 L [Right Radial artery] O2 Saturation 97 98 01/31/20 01/31/20 01/31/20 06:00 07:00 07:20 Temperature Heart Rate 86 Heart Rate [ 92 88 Monitoring electrodes] Respiratory 18 18 Rate Blood Pressure Blood Pressure 103/69 97/61 [Left Brachial artery] Blood Pressure [Right Brachial artery] Blood Pressure 106/54 L 106/52 L [Right Radial artery] O2 Saturation 98 98 01/31/20 01/31/20 01/31/20 08:00 09:00 09:07 Temperature 37.6 C H Heart Rate 21 L Heart Rate [ 86 91 Monitoring electrodes] Respiratory 18 20 Rate Blood Pressure Blood Pressure 107/52 L 117/53 L [Left Brachial artery] Blood Pressure [Right Brachial artery] Blood Pressure 94/55 L 113/61 [Right Radial artery] O2 Saturation 97 97 01/31/20 01/31/20 01/31/20 10:00 11:00 12:00 Temperature 37.7 C H Heart Rate 88 Heart Rate [ 88 88 85 Monitoring electrodes] Respiratory 17 19 20 Rate Blood Pressure Blood Pressure 114/50 L 113/51 L 112/48 L [Left Brachial artery] Blood Pressure [Right Brachial artery] Blood Pressure 111/65 111/65 109/62 [Right Radial artery] O2 Saturation 98 98 98 01/31/20 01/31/20 13:00 13:27 Temperature 38 C H Heart Rate 87 Heart Rate [ 88 Monitoring electrodes] Respiratory 20 Rate Blood Pressure Blood Pressure 101/61 [Left Brachial artery] Blood Pressure [Right Brachial artery] Blood Pressure 117/52 L [Right Radial artery] O2 Saturation 98 Oxygen O2 Source [With Activity] Nasal cannula O2 Source Mechanical ventilator I&O (Last 24 Hrs): Intake and Output Totals x24h 01/29/20 01/30/20 01/31/20 23:59 23:59 23:59 Intake Total 2180.019 2533.750 Output Total 780 1575 Balance 1400.019 958.750 General: Other (Sedated and on the vent) HEENT: Mucous membr. moist/pink, Other (ET tube in place, OG tube in place) Neck: No JVD Neuro: Other (Sedated on IV drip) Cardiovascular: Regular rate, No murmurs Respiratory: Breath sounds nml Abdomen: Soft, Other (Mildly distended, diminished bowel sounds) Extremities: No edema - Results Results: Laboratory Results WBC 14.7 x10^3/uL (4.8-10.8) H 01/31/20 04: RBC 3.24 10^6/uL (4.70-6.10) L 01/31/20 04:27 Hgb 10.0 g/dL (14.0-18.0) L 01/31/20 11:00 Hct 30.2 % (42.0-52.0) L 01/31/20 11:00 MCV 92.9 fL (80.0-94.0) 01/31/20 04: MCH 29.9 pg (27.0-31.0) 01/31/20 04: MCHC 32.2 g/dL (32.0-36.0) 01/31/20 04: RDW 14.6 % (12.0-15.0) 01/31/20 04:27 Plt Count 297 10^3/uL (130-450) 01/31/20 04: MPV 10.3 fL (7.4-11.4) 01/31/20 04:27 Neut # (Auto) 12.1 10^3/uL (1.5-6.6) H 01/31/20 04:27 Lymph # (Auto) 1.0 10^3/uL (1.5-3.5) L 01/31/20 04:27 Owen # (Auto) 1.4 10^3/uL (0.0-1.0) H 01/31/20 04:27 Eos # (Auto) 0.0 10^3/uL (0.0-0.7) 01/31/20 04:27 Baso # (Auto) 0.1 10^3/uL (0.0-0.1) 01/31/20 04: Absolute Nucleated RBC 0.00 x10^3/uL 01/31/20 04: Nucleated RBC % 0.0 /100WBC 01/31/20 04:27 PT 14.8 secs (9.9-12.6) H 01/31/20 04:27 INR 1.3 (0.8-1.2) H 01/31/20 04:27 Anti-Xa Level 0.1 U/mL (-0.7) 01/31/20 07:06 Bld Gas Analysis Time 62101/31/20 06:12 Sample Site A-LINE 01/31/20 06:12 ABG pH 7.45 (7.35-7.45) 01/31/20 06:12 ABG pCO2 29 mmHg (34-45) L 01/31/20 06:12 ABG pO2 98 mmHg (80-100) 01/31/20 06:12 ABG HCO3 19.3 mmol/L (22.0-26.0) L 01/31/20 06:12 ABG Total CO2 20.2 MMOL/L (21.0-29.0) L 01/31/20 06:12 ABG O2 Saturation 97 % (94-98) 01/31/20 06:12 ABG Base Excess -3.8 mmol/L (-2.0-3.0) L 01/31/20 06:12 Cirilo Test NOT APPLICABLE 01/31/20 06:12 Respiration Rate 18 b/min 01/31/20 06:12 O2 Delivery Device VENTILATOR 01/31/20 06:12 Vent Mode SIMV 01/31/20 06:12 FiO2 40.00 01/31/20 06:12 Tidal Volume 500 mL 01/31/20 06:12 PEEP 5 cmH2O 01/31/20 06:12 Pressure Support Vent 10 cmH2O 01/31/20 06:12 Sodium 134 mmol/L (135-145) L 01/31/20 04:27 Potassium 4.7 mmol/L (3.5-5.0) 01/31/20 04:27 Chloride 106 mmol/L (101-111) 01/31/20 04:27 Carbon Dioxide 18 mmol/L (21-32) L 01/31/20 04:27 Anion Gap 10.0 (6-13) 01/31/20 04:27 BUN 68 mg/dL (6-20) H 01/31/20 04:27 Creatinine 1.8 mg/dL (0.6-1.2) H 01/31/20 04:27 Estimated GFR (MDRD) 37 (>89) L 01/31/20 04:27 Glucose 205 mg/dL (70-100) H 01/31/20 04:27 Estimat Average Glucose 126 mg/dL (70-100) H 01/31/20 04:25 Hemoglobin A1c % 6.0 % (4.27-6.07) 01/31/20 04:25 Calcium 9.4 mg/dL (8.5-10.3) 01/31/20 04:27 Phosphorus 3.5 mg/dL (2.5-4.6) 01/31/20 04:27 Magnesium 2.4 mg/dL (1.7-2.8) 01/31/20 04:27 Total Bilirubin 1.0 mg/dL (0.2-1.0) 01/30/20 12:15 AST 133 IU/L (10-42) H 01/30/20 12:15 ALT 25 IU/L (10-60) 01/30/20 12:15 Alkaline Phosphatase 49 IU/L (42-121) 01/30/20 12:15 Troponin I High Sens 65157.2 ng/L (2.3-19.7) H* 01/31/20 11:08 Total Protein 7.0 g/dL (6.7-8.2) 01/30/20 12:15 Albumin 3.7 g/dL (3.2-5.5) 01/30/20 12:15 Globulin 3.3 g/dL (2.1-4.2) 01/30/20 12:15 Albumin/Globulin Ratio 1.1 (1.0-2.2) 01/30/20 12:15 TSH 0.69 uIU/mL (0.34-5.60) 01/31/20 04:27 Urine Color YELLOW 01/30/20 18:40 Urine Clarity CLEAR (CLEAR) 01/30/20 18:40 Urine pH 5.0 PH (5.0-7.5) 01/30/20 18:40 Ur Specific [place] 1.025 (1.002-1.030) 01/30/20 18:40 Urine Protein NEGATIVE mg/dL (NEGATIVE) 01/30/20 18:40 Urine Glucose (UA) NEGATIVE mg/dL (NEGATIVE) 01/30/20 18:40 Urine Ketones NEGATIVE mg/dL (NEGATIVE) 01/30/20 18:40 Urine Occult Blood TRACE-INTA (NEGATIVE) 01/30/20 18:40 Urine Nitrite NEGATIVE (NEGATIVE) 01/30/20 18:40 Urine Bilirubin NEGATIVE (NEGATIVE) 01/30/20 18:40 Urine Urobilinogen 0.2 (NORMAL) E.U./dL (NORMAL) 01/30/20 18:40 Ur Leukocyte Esterase NEGATIVE (NEGATIVE) 01/30/20 18:40 Ur Microscopic Review NOT INDICATED 01/30/20 18:40 Urine Culture Comments NOT INDICATED 01/30/20 18:40 Nasal Screen MRSA (PCR) NEGATIVE (NEGATIVE) 01/30/20 15:45 Blood Type AB NEGATIVE 01/30/20 13:18 Antibody Screen NEGATIVE 01/30/20 13:18 Crossmatch IS Only See Detail 01/30/20 13:18 - Procedures Procedures: Procedures BLADDER SPHINCTEROTOMY (05/10/13) CYSTOSCOPY NEC (05/10/13) DX ULTRASOUND NEC (05/10/13) EXCISION OF SIGMOID COLON, ENDO (11/15/15) EXCISION OF STOMACH, PYLORUS, ENDO, DIAGN (11/15/15) INSERT INDWELLING CATH (05/10/13) OTH TRANSURETHRAL PROSTATECTOMY (12/14/12) TRANSFUSE NONAUT FROZEN PLASMA IN PERIPH VEIN, PERC (11/15/15) TRANSFUSE NONAUT RED BLOOD CELLS IN PERIPH VEIN, PERC (11/15/15)
[2020-01-31] MEDS: NORepinephrine 8 MG in DEXTROSE 5% 250ML IV SCH (16:25)
--- NOTE | 2020-01-31 18:55 | ADVANCE CARE PLANNING NOTE ---
Advance Care Planning - Planning Encounter Date: 01/31/20 Time: 12:40 Purpose: Get detailed history from his DPOA and update her on his condition and diagnoses, and to establish CODE STATUS, given the new current diagnosis of RI and cardiomyopathy. Parties in Attendance: I spoke to his cousin who is the DPOA at bedside in his room. The patient is sedated and on the ventilator. ' Decisional Capacity of the Patient: He is sedated and on the vent and did not participate. - Diagnosis for Encounter (1) Shock Summary: Remains on low-dose of Levophed for blood pressure support. (2) Acute RI Summary: He has ruled in for an acute RI, hs-troponin is greater than 21,000. (3) Anemia due to GI blood loss Summary: Despite being started on heparin for the above, there have been no signs of bleeding from epistaxis or his GI tract so far today. (4) Cardiomyopathy Summary: He has had LBBB for years but I cannot see any work-up for cardiac disease in the past. The Echo done today shows LVEF of 20 to 25%. - Encounter Subjective/Patient's Story: Patient does not have developmental delay as was reported to the Hospitalist Team yesterday by the ER doctor. He has been in assisted living for 7 years because he was not medically taking care of himself (not taking his meds), however he has no cognitive impairment. 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 He has a history of diabetes type 2, he was recently diagnosed with COPD, he has BPH. He has never had a cardiac diagnosis or any cardiac work-up that the DPOA knows of. She does not know of him having complaints of shortness of breath on activity or orthopnea or leg edema. He has had iron deficiency in the past and gets once a year IV iron infusions which were supposed to be in November but because of Covid this year it has been postponed to early March. He came to the ER 3 days ago with epistaxis and came back that night for worsening epistaxis, but things were stable and he was sent home to assisted living. The DPOA does not know the details of how much blood was in the diarrhea which the staff sent him into the ER for, on this admission. Objective/Medical Story: He presented with bloody diarrhea, the nasal tampon had no blood and was not removed. His blood pressure was 60/40 and he started to get crystalloids for resuscitation then IV pressors. He was taken urgently for an EGD therefore he needed airway protection and sedation so he was started on propofol and put on a ventilator. The EGD showed no source of bleeding. He came to the ICU requiring continued pressors and he is still on the vent and therefore on iv drip sedation. A troponin was checked to rule out a cardiac etiology of the hypotension/shock and this has returned showing a troponin/at bedtime greater than 21,000. It is already decreasing to the 19,000 range. His EKG showed left bundle branch block at admission yesterday, which he has had on his last EKG f rom a year ago and in the past. Goals of Care: The DPOA does not wish to put him through a transfer to higher level of care or a coronary angiogram. Will try to get him off his pressors, then off the sedative and off the ventilator. Will plan medical management for his cardiomyopathy and acute RI. He may still need to undergo bowel prep and colonoscopy however this is probably likely to be postponed by the general surgeon because of this cardiac diagnosis. And asked about resuscitation for a cardiac arrest, the DPOA stated that she wants him to have DNR status. Plan: She and I will both fill out the POLST form. We will put DNR in the orders in the EMR. No transfer to higher level of care is planned. Code Status: Do Not Attempt Resuscitation Time spent on advance care plannin min
[2020-01-31 20:12] LABS: BASOPHILS # (AUTO) 0.1 10^3/uL (0.0-0.1); BASOPHILS % (AUTO) 0.3 %; EOSINOPHILS % (AUTO) 0.1 %; HGB - HEMOGLOBIN 10.1 g/dL (14.0-18.0); LYMPHOCYTES % (AUTO) 6.3 %; MEAN CORPUSCULAR HEMOGLOBIN 30.1 pg (27.0-31.0); MEAN CORPUSCULAR HGB CONC 32.7 g/dL (32.0-36.0); MEAN CORPUSCULAR VOLUME 92.2 fL (80.0-94.0); MEAN PLATELET VOLUME 10.6 fL (7.4-11.4); MONOCYTES # (AUTO) 1.5 10^3/uL (0.0-1.0); MONOCYTES % (AUTO) 9.8 %; NEUTROPHILS # (AUTO) 12.7 10^3/uL (1.5-6.6); NEUTROPHILS % (AUTO) 82.8 %; PLT - PLATELET COUNT 297 10^3/uL (130-450); RED BLOOD COUNT 3.35 10^6/uL (4.70-6.10); RED CELL DISTRIBUTION WIDTH 14.9 % (12.0-15.0); WHITE BLOOD COUNT 15.3 x10^3/uL (4.8-10.8)
[2020-01-31] MEDS: SODIUM CHLORIDE FLUSH 0.9% 10 ML SYRINGE IVP PRN (20:26)
[2020-01-31] MEDS: ACETAMINOPHEN 1,000 MG/100 ML 100 ML IV PRN (20:32)
[2020-02-01] MEDS: INSULIN REGULAR HUMAN 300 UNIT/3 ML VIAL SUBQ SCH ×4 (00:14→17:55)
[2020-02-01] MEDS: SODIUM CHLORIDE FLUSH 0.9% 10 ML SYRINGE IVP SCH ×3 (00:15→16:42)
[2020-02-01] MEDS: PROPOFOL 500 MG/50 ML 500 MG/50 ML VIAL IV SCH ×7 (00:19→18:15)
[2020-02-01] MEDS: NORepinephrine 8 MG in DEXTROSE 5% 250ML IV SCH ×2 (02:41→16:42)
[2020-02-01 04:36] LABS: BASOPHILS # (AUTO) 0.1 10^3/uL (0.0-0.1); BASOPHILS % (AUTO) 0.5 %; EOSINOPHILS % (AUTO) 0.1 %; HGB - HEMOGLOBIN 9.5 g/dL (14.0-18.0); LYMPHOCYTES # (AUTO) 1.3 10^3/uL (1.5-3.5); LYMPHOCYTES % (AUTO) 8.6 %; MEAN CORPUSCULAR HEMOGLOBIN 29.5 pg (27.0-31.0); MEAN CORPUSCULAR HGB CONC 31.4 g/dL (32.0-36.0); MEAN CORPUSCULAR VOLUME 94.1 fL (80.0-94.0); MEAN PLATELET VOLUME 11.1 fL (7.4-11.4); MONOCYTES # (AUTO) 1.3 10^3/uL (0.0-1.0); MONOCYTES % (AUTO) 8.8 %; NEUTROPHILS # (AUTO) 11.9 10^3/uL (1.5-6.6); NEUTROPHILS % (AUTO) 81.3 %; PLT - PLATELET COUNT 284 10^3/uL (130-450); RED BLOOD COUNT 3.22 10^6/uL (4.70-6.10); RED CELL DISTRIBUTION WIDTH 15.2 % (12.0-15.0); WHITE BLOOD COUNT 14.6 x10^3/uL (4.8-10.8)
[2020-02-01 04:48] LABS: CALCIUM 8.9 mg/dL (8.5-10.3); CREATININE 1.4 mg/dL (0.6-1.2)
[2020-02-01 04:56] LABS: CHOL/HDL RATIO 6.4 (<5.0); CHOLESTEROL 159 mg/dL; HDL CHOLESTEROL 25 mg/dL; LDL CHOLESTEROL,CALCULATED 86 mg/dL; LDL/HDL RATIO 3.4 (<3.6); VLDL CHOLESTEROL 48 mg/dL
[2020-02-01 05:49] LABS: ABG PCO2 28 mmHg (34-45); ABG PH 7.47 (7.35-7.45)
[2020-02-01 05:50] LABS: ABG BASE EXCESS -2.8 mmol/L (-2.0-3.0); ABG OXYGEN SATURATION 98 % (94-98); ABG PO2 121 mmHg (80-100); ABG TCO2 20.9 MMOL/L (21.0-29.0)
[2020-02-01 07:13] LABS: MAGNESIUM 2.1 mg/dL (1.7-2.8); PHOSPHORUS 2.7 mg/dL (2.5-4.6)
[2020-02-01] MEDS ORDERED: ETOMIDATE 40 MG/20 ML VIAL IVP ONE (07:33)
[2020-02-01] MEDS ORDERED: VASOPRESSIN 20 UNIT/ML VIAL IVP ONE (07:33)
[2020-02-01] MEDS ORDERED: NEOSTIGMINE 1 MG/1 ML 10 ML MDV IVP ONE (07:33)
[2020-02-01] MEDS ORDERED: ePHEDrine 50 MG/ML VIAL IVP ONE (07:33)
[2020-02-01] MEDS ORDERED: PROPOFOL 200 MG/20 ML VIAL IVP ONE (07:33)
[2020-02-01] MEDS ORDERED: ROCURONIUM 50 MG/5 ML VIAL IVP ONE (07:33)
[2020-02-01] MEDS: PANTOPRAZOLE 40 MG VIAL IVP SCH ×2 (07:54→21:06)
[2020-02-01] MEDS: ASPIRIN CHEW 81 MG TABLET NG SCH (08:11)
[2020-02-01] MEDS: cefTRIAXone 2 GM in SODIUM CHLORIDE 0.9% MINIBAG 100 ML IV SCH (08:20)
[2020-02-01] MEDS: HEPARIN 25000UNITS/500ML (D5W) 25,000 UNIT/500 ML BAG IV SCH (08:21)
[2020-02-01] MEDS: INSULIN GLARGINE 300 UNIT/3 ML PEN SUBQ SCH (08:46)
[2020-02-01] MEDS: DOXYCYCLINE INJ 100 MG in SODIUM CHLORIDE 0.9% MINIBAG 100 ML IV SCH ×2 (09:02→21:06)
[2020-02-01] MEDS: SODIUM CHLORIDE 0.9% 1,000 ML IV SCH ×2 (09:57→19:59)
[2020-02-01] MEDS ORDERED: fentaNYL 100 MCG/2 ML VIAL IVP SCH (10:35)
--- NOTE | 2020-02-01 10:40 | PROVIDER PROGRESS NOTE ---
Subjective - Prog Note Date Prog Note Date: 02/01/20 - Subjective Subjective: Patient remains intubated and sedated in the intensive care unit. He remains on norepinephrine. He is sedated with propofol. Current Medications - Current Medications Current Medications: Active Medications Aspirin ([place] Aspirin) 324 mg NG DAILY JOHANNY Last Admin: 02/01/20 08:11 Dose: 324 mg Documented by: Fentanyl (Fentanyl) 25 mcg IVP ONCE JOHANNY Stop: 02/01/20 11:30 Heparin Sodium (Porcine) () 2,600 unit 25 unit/kg (2600 unit) IVP Q6H PRN PRN Reason: ANTI-XA < 0.2 Propofol (Diprivan) 500 mg in 50 mls @ 6.366 mls/hr IV .Q7H52M JOHANNY; Protocol Last Admin: 02/01/20 10:14 Dose: 20 mcg/kg/min, 12.732 mls/hr Documented by: Sodium Chloride (Normal Saline 0.9%) 1,000 mls @ 100 mls/hr IV .Q10H JOHANNY Last Admin: 02/01/20 09:57 Dose: 100 mls/hr Documented by: Heparin Sodium/Dextrose () 25,000 unit in 500 mls @ 20 mls/hr IV .Q25H JOHANNY; Protocol Last Admin: 02/01/20 08:21 Dose: 20 mls/hr, 20 mls/hr Documented by: Norepinephrine Bitartrate 8 mg (/ Dextrose) 250 mls @ 15 mls/hr IV .[id number] JOHANNY; Protocol Last Titration: 02/01/20 10:00 Dose: 8 mcg/min, 15 mls/hr Documented by: Acetaminophen (Ofirmev) 100 mls @ 400 mls/hr IV Q6HR PRN PRN Reason: FEVER > 100.5 F Last Infusion: 01/31/20 21:01 Dose: Infused Documented by: Doxycycline Hyclate 100 mg/ (Sodium Chloride) 100 mls @ 100 mls/hr IV BID JOHANNY Last Infusion: 02/01/20 10:10 Dose: Infused Documented by: Ceftriaxone Sodium 2 gm/ (Sodium Chloride) 100 mls @ 200 mls/hr IV DAILY JOHANNY Last Infusion: 02/01/20 09:00 Dose: Infused Documented by: Insulin Glargine (Lantus Solostar) 10 unit SUBQ DAILY JOHANNY Last Admin: 02/01/20 08:46 Dose: 10 unit Documented by: Insulin Human Regular (Humulin R) 1 - 5 unit SUBQ Q6HR [facility]; Protocol Last Admin: 02/01/20 06:19 Dose: 2 unit Documented by: Multi-Ingredient Ointment (Zinc Oxide) 1 applic TOP PRN PRN PRN Reason: Skin Care Ondansetron HCl (Zofran Inj) 4 mg IVP Q6HR PRN PRN Reason: Nausea / Vomiting Pantoprazole Sodium (Protonix) 40 mg IVP BID [facility] Last Admin: 02/01/20 07:54 Dose: 40 mg Documented by: Sodium Chloride (Normal Saline Flush 0.9%) 10 ml IVP 0100,0900,1700 [facility] Last Admin: 02/01/20 07:54 Dose: 10 ml Documented by: Sodium Chloride (Normal Saline Flush 0.9%) 10 ml IVP PRN PRN PRN Reason: NEEDED PER PROVIDER ORDERS Last Admin: 01/31/20 20:26 Dose: 10 ml Documented by: Acetaminophen [Tylenol] 325 mg PO Q6H PRN 06/10/17 Calcium Carbonate/Vitamin D3 [Calcium 600-Vit D3 400 Tablet] 1 tab PO BID 06/10/17 Ferrous Sulfate 325 mg PO .QOD 06/10/17 Tamsulosin [Flomax] 0.4 mg PO DAILY 06/10/17 Metformin HCl [Metformin HCl ER] 500 mg PO DAILY 01/29/18 Sertraline HCl 50 mg PO DAILY 01/29/18 Esomeprazole Magnesium 20 mg PO BID 07/28/18 Albuterol Sulfate [Albuterol Sulfate Hfa] 2 - 4 puffs PO Q4H 01/31/20 Insulin NPH Hum/Reg Insulin Hm [Humulin 70/30 Kwikpen] 50 units SQ BIDWM 01/31/20 Lisinopril [Prinivil] 5 mg PO DAILY 01/31/20 Objective - Vital Signs/Intake & Output Reviewed Vital Signs: Yes Vital Signs: Vital Signs Temp Pulse Pulse Resp BP BP Pulse Ox 02/01/20 10:00 38.3 C H 93 92 21 114/63 100/50 L 98 02/01/20 09:00 38.4 C H 101 H 23 123/66 103/58 L 98 02/01/20 08:00 38.4 C H 93 21 107/74 100 02/01/20 07:13 92 02/01/20 07:00 89 21 111/58 L 91/72 99 Intake & Output: Intake & Output 01/29/20 01/30/20 01/31/20 02/01/20 23:59 23:59 23:59 23:59 Intake Total 2180.019 4003.889 2229.448 Output Total 780 2405 625 Balance 6571.373 9233.889 1604.448 - Objective General Appearance: positive: No acute distress, Other (Sedated.) Eyes Bilateral: positive: Normal inspection, Conjunctivae nml ENT: positive: Other (Nasal packing present in the left naris. ET tube in place.) Neck: positive: Nml inspection Respiratory: negative: Wheezes, Rales Cardiovascular: positive: Extrasystoles, Tachycardia. negative: Systolic murmur Abdomen: positive: Non-tender, No distention Skin: positive: Warm, Dry Extremities: positive: Pedal edema (Trace edema in lower extremities.) Neurologic/Psychiatric: positive: Other (He is sedated on propofol. Does not follow commands.) - Lab Results Fish Bones: 02/01/20 04:30 02/01/20 04:30 Other Labs: Lab Results x24hrs 02/01/20 02/01/20 02/01/20 Range/Units 06:13 05:45 04:30 WBC (4.8-10.8) x10^3/uL RBC (4.70-6.10) 10^6/uL Hgb (14.0-18.0) g/dL Hct (42.0-52.0) % MCV (80.0-94.0) fL MCH (27.0-31.0) pg MCHC (32.0-36.0) g/dL RDW (12.0-15.0) % Plt Count (130-450) 10^3/uL MPV (7.4-11.4) fL Neut # (Auto) (1.5-6.6) 10^3/uL Lymph # (Auto) (1.5-3.5) 10^3/uL [place] # (Auto) (0.0-1.0) 10^3/uL Eos # (Auto) (0.0-0.7) 10^3/uL Baso # (Auto) (0.0-0.1) 10^3/uL Absolute Nucleated RBC x10^3/uL Nucleated RBC % /100WBC Anti-Xa Level 0.3 ( - 0.7) U/mL Bld Gas Analysis Time 0552 Sample Site A-LINE ABG pH 7.47 H (7.35-7.45) ABG pCO2 28 L (34-45) mmHg ABG pO2 121 H (80-100) mmHg ABG HCO3 20.0 L (22.0-26.0) mmol/L ABG Total CO2 20.9 L (21.0-29.0) MMOL/L ABG O2 Saturation 98 (94-98) % ABG Base Excess -2.8 L (-2.0-3.0) mmol/L Cirilo Test NOT APPLICABLE Respiration Rate 18 b/min O2 Delivery Device VENTILATOR Vent Mode SIMV FiO2 0.40 Tidal Volume 500 mL PEEP 5 cmH2O Pressure Support Vent 10 cmH2O Sodium (135-145) mmol/L Potassium (3.5-5.0) mmol/L Chloride (101-111) mmol/L Carbon Dioxide (21-32) mmol/L Anion Gap (6-13) BUN (6-20) mg/dL Creatinine (0.6-1.2) mg/dL Estimated GFR (MDRD) (>89) Glucose (70-100) mg/dL POC Whole Bld Glucose 194 H (70 - 100) mg/dL Estimat Average Glucose (70-100) mg/dL Hemoglobin A1c % (4.27-6.07) % Calcium (8.5-10.3) mg/dL Phosphorus (2.5-4.6) mg/dL Magnesium (1.7-2.8) mg/dL Troponin I High Sens (2.3-19.7) ng/L Triglycerides ( - 149) mg/dL Cholesterol ( - 199) mg/dL LDL Cholesterol, Calc ( - 129) mg/dL VLDL Cholesterol mg/dL HDL Cholesterol (60 - ) mg/dL LDL/HDL Ratio (<3.6) Cholesterol/HDL Ratio (<5.0) 02/01/20 02/01/20 02/01/20 Range/Units 04:30 04:30 04:30 WBC 14.6 H (4.8-10.8) x10^3/uL RBC 3.22 L (4.70-6.10) 10^6/uL Hgb 9.5 L (14.0-18.0) g/dL Hct 30.3 L (42.0-52.0) % MCV 94.1 H (80.0-94.0) fL MCH 29.5 (27.0-31.0) pg MCHC 31.4 L (32.0-36.0) g/dL RDW 15.2 H (12.0-15.0) % Plt Count 284 (130-450) 10^3/uL MPV 11.1 (7.4-11.4) fL Neut # (Auto) 11.9 H (1.5-6.6) 10^3/uL Lymph # (Auto) 1.3 L (1.5-3.5) 10^3/uL [place] # (Auto) 1.3 H (0.0-1.0) 10^3/uL Eos # (Auto) 0.0 (0.0-0.7) 10^3/uL Baso # (Auto) 0.1 (0.0-0.1) 10^3/uL Absolute Nucleated RBC 0.00 x10^3/uL Nucleated RBC % 0.0 /100WBC Anti-Xa Level ( - 0.7) U/mL Bld Gas Analysis Time Sample Site ABG pH (7.35-7.45) ABG pCO2 (34-45) mmHg ABG pO2 (80-100) mmHg ABG HCO3 (22.0-26.0) mmol/L ABG Total CO2 (21.0-29.0) MMOL/L ABG O2 Saturation (94-98) % ABG Base Excess (-2.0-3.0) mmol/L Cirilo Test Respiration Rate b/min O2 Delivery Device Vent Mode FiO2 Tidal Volume mL PEEP cmH2O Pressure Support Vent cmH2O Sodium 134 L (135-145) mmol/L Potassium 4.2 (3.5-5.0) mmol/L Chloride 107 (101-111) mmol/L Carbon Dioxide 18 L (21-32) mmol/L Anion Gap 9.0 (6-13) BUN 35 H (6-20) mg/dL Creatinine 1.4 H (0.6-1.2) mg/dL Estimated GFR (MDRD) 50 L (>89) Glucose 229 H (70-100) mg/dL POC Whole Bld Glucose (70 - 100) mg/dL Estimat Average Glucose (70-100) mg/dL Hemoglobin A1c % (4.27-6.07) % Calcium 8.9 (8.5-10.3) mg/dL Phosphorus (2.5-4.6) mg/dL Magnesium (1.7-2.8) mg/dL Troponin I High Sens (2.3-19.7) ng/L Triglycerides 242 H ( - 149) mg/dL Cholesterol 159 ( - 199) mg/dL LDL Cholesterol, Calc 86 ( - 129) mg/dL VLDL Cholesterol 48 mg/dL HDL Cholesterol 25 L (60 - ) mg/dL LDL/HDL Ratio 3.4 (<3.6) Cholesterol/HDL Ratio 6.4 (<5.0) 02/01/20 02/01/20 01/31/20 Range/Units 04:05 00:01 20:00 WBC (4.8-10.8) x10^3/uL RBC (4.70-6.10) 10^6/uL Hgb (14.0-18.0) g/dL Hct (42.0-52.0) % MCV (80.0-94.0) fL MCH (27.0-31.0) pg MCHC (32.0-36.0) g/dL RDW (12.0-15.0) % Plt Count (130-450) 10^3/uL MPV (7.4-11.4) fL Neut # (Auto) (1.5-6.6) 10^3/uL Lymph # (Auto) (1.5-3.5) 10^3/uL [place] # (Auto) (0.0-1.0) 10^3/uL Eos # (Auto) (0.0-0.7) 10^3/uL Baso # (Auto) (0.0-0.1) 10^3/uL Absolute Nucleated RBC x10^3/uL Nucleated RBC % /100WBC Anti-Xa Level 0.3 ( - 0.7) U/mL Bld Gas Analysis Time Sample Site ABG pH (7.35-7.45) ABG pCO2 (34-45) mmHg ABG pO2 (80-100) mmHg ABG HCO3 (22.0-26.0) mmol/L ABG Total CO2 (21.0-29.0) MMOL/L ABG O2 Saturation (94-98) % ABG Base Excess (-2.0-3.0) mmol/L Cirilo Test Respiration Rate b/min O2 Delivery Device Vent Mode FiO2 Tidal Volume mL PEEP cmH2O Pressure Support Vent cmH2O Sodium (135-145) mmol/L Potassium (3.5-5.0) mmol/L Chloride (101-111) mmol/L Carbon Dioxide (21-32) mmol/L Anion Gap (6-13) BUN (6-20) mg/dL Creatinine (0.6-1.2) mg/dL Estimated GFR (MDRD) (>89) Glucose (70-100) mg/dL POC Whole Bld Glucose 186 H (70 - 100) mg/dL Estimat Average Glucose (70-100) mg/dL Hemoglobin A1c % (4.27-6.07) % Calcium (8.5-10.3) mg/dL Phosphorus 2.7 (2.5-4.6) mg/dL Magnesium 2.1 (1.7-2.8) mg/dL Troponin I High Sens (2.3-19.7) ng/L Triglycerides ( - 149) mg/dL Cholesterol ( - 199) mg/dL LDL Cholesterol, Calc ( - 129) mg/dL VLDL Cholesterol mg/dL HDL Cholesterol (60 - ) mg/dL LDL/HDL Ratio (<3.6) Cholesterol/HDL Ratio (<5.0) 01/31/20 01/31/20 01/31/20 Range/Units 20:00 14:23 11:44 WBC 15.3 H (4.8-10.8) x10^3/uL RBC 3.35 L (4.70-6.10) 10^6/uL Hgb 10.1 L (14.0-18.0) g/dL Hct 30.9 L (42.0-52.0) % MCV 92.2 (80.0-94.0) fL MCH 30.1 (27.0-31.0) pg MCHC 32.7 (32.0-36.0) g/dL RDW 14.9 (12.0-15.0) % Plt Count 297 (130-450) 10^3/uL MPV 10.6 (7.4-11.4) fL Neut # (Auto) 12.7 H (1.5-6.6) 10^3/uL Lymph # (Auto) 1.0 L (1.5-3.5) 10^3/uL [place] # (Auto) 1.5 H (0.0-1.0) 10^3/uL Eos # (Auto) 0.0 (0.0-0.7) 10^3/uL Baso # (Auto) 0.1 (0.0-0.1) 10^3/uL Absolute Nucleated RBC 0.00 x10^3/uL Nucleated RBC % 0.0 /100WBC Anti-Xa Level 0.3 ( - 0.7) U/mL Bld Gas Analysis Time Sample Site ABG pH (7.35-7.45) ABG pCO2 (34-45) mmHg ABG pO2 (80-100) mmHg ABG HCO3 (22.0-26.0) mmol/L ABG Total CO2 (21.0-29.0) MMOL/L ABG O2 Saturation (94-98) % ABG Base Excess (-2.0-3.0) mmol/L Cirilo Test Respiration Rate b/min O2 Delivery Device Vent Mode FiO2 Tidal Volume mL PEEP cmH2O Pressure Support Vent cmH2O Sodium (135-145) mmol/L Potassium (3.5-5.0) mmol/L Chloride (101-111) mmol/L Carbon Dioxide (21-32) mmol/L Anion Gap (6-13) BUN (6-20) mg/dL Creatinine (0.6-1.2) mg/dL Estimated GFR (MDRD) (>89) Glucose (70-100) mg/dL POC Whole Bld Glucose 202 H (70 - 100) mg/dL Estimat Average Glucose (70-100) mg/dL Hemoglobin A1c % (4.27-6.07) % Calcium (8.5-10.3) mg/dL Phosphorus (2.5-4.6) mg/dL Magnesium (1.7-2.8) mg/dL Troponin I High Sens (2.3-19.7) ng/L Triglycerides ( - 149) mg/dL Cholesterol ( - 199) mg/dL LDL Cholesterol, Calc ( - 129) mg/dL VLDL Cholesterol mg/dL HDL Cholesterol (60 - ) mg/dL LDL/HDL Ratio (<3.6) Cholesterol/HDL Ratio (<5.0) 01/31/20 01/31/20 01/31/20 Range/Units 11:08 11:00 04:25 WBC (4.8-10.8) x10^3/uL RBC (4.70-6.10) 10^6/uL Hgb 10.0 L (14.0-18.0) g/dL Hct 30.2 L (42.0-52.0) % MCV (80.0-94.0) fL MCH (27.0-31.0) pg MCHC (32.0-36.0) g/dL RDW (12.0-15.0) % Plt Count (130-450) 10^3/uL MPV (7.4-11.4) fL Neut # (Auto) (1.5-6.6) 10^3/uL Lymph # (Auto) (1.5-3.5) 10^3/uL [place] # (Auto) (0.0-1.0) 10^3/uL Eos # (Auto) (0.0-0.7) 10^3/uL Baso # (Auto) (0.0-0.1) 10^3/uL Absolute Nucleated RBC x10^3/uL Nucleated RBC % /100WBC Anti-Xa Level ( - 0.7) U/mL Bld Gas Analysis Time Sample Site ABG pH (7.35-7.45) ABG pCO2 (34-45) mmHg ABG pO2 (80-100) mmHg ABG HCO3 (22.0-26.0) mmol/L ABG Total CO2 (21.0-29.0) MMOL/L ABG O2 Saturation (94-98) % ABG Base Excess (-2.0-3.0) mmol/L Cirilo Test Respiration Rate b/min O2 Delivery Device Vent Mode FiO2 Tidal Volume mL PEEP cmH2O Pressure Support Vent cmH2O Sodium (135-145) mmol/L Potassium (3.5-5.0) mmol/L Chloride (101-111) mmol/L Carbon Dioxide (21-32) mmol/L Anion Gap (6-13) BUN (6-20) mg/dL Creatinine (0.6-1.2) mg/dL Estimated GFR (MDRD) (>89) Glucose (70-100) mg/dL POC Whole Bld Glucose (70 - 100) mg/dL Estimat Average Glucose 126 H (70-100) mg/dL Hemoglobin A1c % 6.0 (4.27-6.07) % Calcium (8.5-10.3) mg/dL Phosphorus (2.5-4.6) mg/dL Magnesium (1.7-2.8) mg/dL Troponin I High Sens 46251.2 H* (2.3-19.7) ng/L Triglycerides ( - 149) mg/dL Cholesterol ( - 199) mg/dL LDL Cholesterol, Calc ( - 129) mg/dL VLDL Cholesterol mg/dL HDL Cholesterol (60 - ) mg/dL LDL/HDL Ratio (<3.6) Cholesterol/HDL Ratio (<5.0) 01/31/20 01/30/20 Range/Units 00:00 17:58 WBC (4.8-10.8) x10^3/uL RBC (4.70-6.10) 10^6/uL Hgb (14.0-18.0) g/dL Hct (42.0-52.0) % MCV (80.0-94.0) fL MCH (27.0-31.0) pg MCHC (32.0-36.0) g/dL RDW (12.0-15.0) % Plt Count (130-450) 10^3/uL MPV (7.4-11.4) fL Neut # (Auto) (1.5-6.6) 10^3/uL Lymph # (Auto) (1.5-3.5) 10^3/uL [place] # (Auto) (0.0-1.0) 10^3/uL Eos # (Auto) (0.0-0.7) 10^3/uL Baso # (Auto) (0.0-0.1) 10^3/uL Absolute Nucleated RBC x10^3/uL Nucleated RBC % /100WBC Anti-Xa Level ( - 0.7) U/mL Bld Gas Analysis Time Sample Site ABG pH (7.35-7.45) ABG pCO2 (34-45) mmHg ABG pO2 (80-100) mmHg ABG HCO3 (22.0-26.0) mmol/L ABG Total CO2 (21.0-29.0) MMOL/L ABG O2 Saturation (94-98) % ABG Base Excess (-2.0-3.0) mmol/L Cirilo Test Respiration Rate b/min O2 Delivery Device Vent Mode FiO2 Tidal Volume mL PEEP cmH2O Pressure Support Vent cmH2O Sodium (135-145) mmol/L Potassium (3.5-5.0) mmol/L Chloride (101-111) mmol/L Carbon Dioxide (21-32) mmol/L Anion Gap (6-13) BUN (6-20) mg/dL Creatinine (0.6-1.2) mg/dL Estimated GFR (MDRD) (>89) Glucose (70-100) mg/dL POC Whole Bld Glucose 189 H 169 H (70 - 100) mg/dL Estimat Average Glucose (70-100) mg/dL Hemoglobin A1c % (4.27-6.07) % Calcium (8.5-10.3) mg/dL Phosphorus (2.5-4.6) mg/dL Magnesium (1.7-2.8) mg/dL Troponin I High Sens (2.3-19.7) ng/L Triglycerides ( - 149) mg/dL Cholesterol ( - 199) mg/dL LDL Cholesterol, Calc ( - 129) mg/dL VLDL Cholesterol mg/dL HDL Cholesterol (60 - ) mg/dL LDL/HDL Ratio (<3.6) Cholesterol/HDL Ratio (<5.0) Assessment/Plan - Problem List (1) Cardiogenic shock Impression: He remains hypotensive requiring norepinephrine. This is suspected to be secondary to cardiogenic shock given the significantly elevated troponin and reduced ejection fraction on echocardiogram. Do not suspect this is hemorrhagic shock given his hemoglobin has been stable and there is no further evidence of bleeding despite being anticoagulated with heparin. The propofol may also be contributing to the hypotension. At this time, we will continue to wean norepinephrine as tolerated. We will also continue to wean the propofol and leeanne l trial Precedex and fentanyl if needed for sedation. The family has stated in the past that they do not want transfer to higher level of care. We will hold off on IV fluids given there was evidence of pulmonary vascular congestion on chest x-ray previously. The patient's overall prognosis remains quite guarded at this time. Continue mechanical ventilation per protocol. (2) NSTEMI (non-ST elevated myocardial infarction) Impression: His EKG showed sinus tach cardia left bundle branch block which was present before. His troponin was significantly elevated at 20,000. He remains on therapeutic dose of heparin which will be continued until tomorrow to complete 48 hours of therapy. We will continue daily aspirin. No beta-pearl due to the hypotension. We will continue norepinephrine as mentioned above given the hypotension and concern for cardiogenic shock. As mentioned above, family does not want transfer for further intervention. (3) On mechanically assisted ventilation Impression: He was intubated for airway protection in the emergency department due to the hypotension and ongoing bleeding. He has minimal ventilator requirements. We will look to possibly extubate him today if his norepinephrine requirement remained quite low and he is following commands. Continue with vent management as per protocol. We will wean the propofol and will consider Precedex and fentanyl for sedation if he becomes agitated while the propofol is being weaned. (4) Community acquired pneumonia Impression: He has began spiking fevers yesterday evening and continues to do so today. Imaging from admission did reveal a possible infiltrate. His white count is also elevated with a left shift. We will start him empirically on ceftriaxone and doxycycline for community-acquired pneumonia. If he does not improve over next 24 to 48 hours then we will broaden this to cover for ventilator associated pneumonia but will hold off for the time being given this infiltrate was present on admission. Trend white count. Follow-up blood cultures. (5) Cardiomyopathy Impression: This is presumed to be ischemic cardiomyopathy. Echocardiogram revealed an ejection fraction of 20-25% with global hypokinesis. As family does not want transfer for angiogram, we are medically managing this at the moment. We are continuing norepinephrine given the hypotension and concern for cardiogenic shock. He will need appropriate heart failure therapy once he is weaned off of the norepinephrine. He does not appear overtly hypervolemic at this time and so we will hold off on diuresis given the hypotension as well. (6) Anemia Impression: This is felt to be acute blood loss anemia secondary to either epistaxis or GI bleed. Endoscopy did not reveal any obvious source of bleeding. He did receive 1 unit of packed red blood cells hemoglobin has since been stable despite being on anticoagulation with heparin. We will continue to monitor his hemoglobin on a daily basis. Qualifiers: Other causes of anemia: acute posthemorrhagic Qualified Code(s): D62 - Acute posthemorrhagic anemia (7) Epistaxis Impression: Hemoglobin has remained stable despite being on heparin without evidence of further bleeding. We will remove the nasal packing today. Continue to monitor for evidence of bleeding. (8) Type 2 diabetes mellitus treated with insulin Impression: His blood glucose has been elevated at over 200. We will start him on Lantus 10 units daily and sliding scale. If we are unable to extubate him today then we will start him on trickle tube feeds. (9) Acute kidney injury superimposed on CKD Impression: His acute kidney injury has resolved. His creatinine peaked at 2.4 and is back to 1.4 today. This is his baseline. Suspect likely has CKD due to his diabetes. We will continue to monitor his renal function and urine output.
[2020-02-01] MEDS ORDERED: ACETAMINOPHEN 650 MG SUPP PR PRN (15:24)
[2020-02-01 15:36] LABS: BASOPHILS # (AUTO) 0.1 10^3/uL (0.0-0.1); BASOPHILS % (AUTO) 0.4 %; HGB - HEMOGLOBIN 9.4 g/dL (14.0-18.0); LYMPHOCYTES % (AUTO) 6.6 %; MEAN CORPUSCULAR HEMOGLOBIN 30.1 pg (27.0-31.0); MEAN CORPUSCULAR VOLUME 94.2 fL (80.0-94.0); MEAN PLATELET VOLUME 11.1 fL (7.4-11.4); MONOCYTES # (AUTO) 1.3 10^3/uL (0.0-1.0); MONOCYTES % (AUTO) 9.1 %; NEUTROPHILS % (AUTO) 83.1 %; PLT - PLATELET COUNT 252 10^3/uL (130-450); RED BLOOD COUNT 3.12 10^6/uL (4.70-6.10); RED CELL DISTRIBUTION WIDTH 15.2 % (12.0-15.0); WHITE BLOOD COUNT 14.5 x10^3/uL (4.8-10.8)
[2020-02-01 16:13] LABS: VBG PCO2 35.6 mmHg (41-51); VBG PH 7.356 (7.31-7.41)
[2020-02-01 16:14] LABS: VBG BASE EXCESS -5.4 mmol/L (-2 - +2); VBG PO2 52.9 mmHg (25-47); VBG TOTAL CO2 20.6 mmol/L (24-29)
[2020-02-01] MEDS ORDERED: fentaNYL 2,500 MCG in SODIUM CHLORIDE 0.9% 200 ML IV SCH (17:00)
[2020-02-01] MEDS ORDERED: fentaNYL 2,500 MCG/250 ML 2,500 MCG/250 ML BAG IV SCH (18:00)
[2020-02-01] MEDS: ACETAMINOPHEN 1,000 MG/100 ML 100 ML IV PRN (18:16)
[2020-02-01] MEDS: ZINC OXIDE 20% OINT 30 GM TUBE TOP PRN (23:56)
[2020-02-02] MEDS: INSULIN REGULAR HUMAN 300 UNIT/3 ML VIAL SUBQ SCH ×4 (00:25→18:24)
[2020-02-02] MEDS: SODIUM CHLORIDE FLUSH 0.9% 10 ML SYRINGE IVP SCH ×3 (00:26→18:24)
[2020-02-02 04:58] LABS: ABG HCO3 17.3 mmol/L (22.0-26.0); ABG PCO2 28 mmHg (34-45); ABG PO2 107 mmHg (80-100); ABG TCO2 18.2 MMOL/L (21.0-29.0)
[2020-02-02 04:59] LABS: ABG BASE EXCESS -6.4 mmol/L (-2.0-3.0); ABG FRACTION OF INSPIRED O2 0.35; ABG OXYGEN SATURATION 97 % (94-98)
[2020-02-02] MEDS: ZINC OXIDE 20% OINT 30 GM TUBE TOP PRN (05:00)
[2020-02-02 05:03] LABS: BASOPHILS # (AUTO) 0.1 10^3/uL (0.0-0.1); BASOPHILS % (AUTO) 0.5 %; EOSINOPHILS % (AUTO) 0.3 %; HGB - HEMOGLOBIN 9.2 g/dL (14.0-18.0); LYMPHOCYTES # (AUTO) 1.1 10^3/uL (1.5-3.5); LYMPHOCYTES % (AUTO) 8.5 %; MEAN CORPUSCULAR HEMOGLOBIN 30.9 pg (27.0-31.0); MEAN CORPUSCULAR HGB CONC 32.4 g/dL (32.0-36.0); MEAN CORPUSCULAR VOLUME 95.3 fL (80.0-94.0); MEAN PLATELET VOLUME 10.8 fL (7.4-11.4); MONOCYTES # (AUTO) 1.1 10^3/uL (0.0-1.0); MONOCYTES % (AUTO) 8.9 %; NEUTROPHILS # (AUTO) 10.2 10^3/uL (1.5-6.6); NEUTROPHILS % (AUTO) 81.2 %; PLT - PLATELET COUNT 221 10^3/uL (130-450); RED BLOOD COUNT 2.98 10^6/uL (4.70-6.10); RED CELL DISTRIBUTION WIDTH 15.5 % (12.0-15.0); WHITE BLOOD COUNT 12.5 x10^3/uL (4.8-10.8)
[2020-02-02 05:10] LABS: CREATININE 1.3 mg/dL (0.6-1.2); PHOSPHORUS 2.6 mg/dL (2.5-4.6)
[2020-02-02] MEDS: SODIUM CHLORIDE 0.9% 1,000 ML IV SCH (06:59)
--- NOTE | 2020-02-02 08:19 | XRAY Report ---
PROCEDURE: Chest 1 View X-Ray INDICATIONS: Follow up infiltrate. TECHNIQUE: One view of the chest was acquired. COMPARISON: 11/04/2018 and 10/29/2018 FINDINGS: Surgical changes and devices: ET tube is 3.7 cm superior to the brigido. Central venous catheter proje cts to the distal SVC via a right IJ approach. NG tube projects across the GE junction without defini te visualization of the side port or distal tip.. Lungs and pleura: Small bilateral pleural effusions, right greater than left. Increased opacification lung bases which could represent compressive atelectasis, aspiration or pneumonia. There is cephaliz ation of pulmonary vasculature and interstitial prominence concerning for CHF. Mediastinum: Mediastinal contours appear normal. Heart is enlarged Bones and chest wall: No suspicious bony lesions. Overlying soft tissues appear unremarkable. IMPRESSION: 1. Bilateral pleural effusions. 2. Bibasilar consolidation compatible with atelectasis, aspiration or pneumonia. 3. Probable CHF. 4. ET tube 3.7 cm superior to the brigido. Reviewed by: Ro Nunez MD, PhD on 02/02/2020 8:18 AM PDT Approved by: Ro Nunez MD, PhD on 02/02/2020 8:18 AM PDT Station ID: [id number]
[2020-02-02] MEDS: ASPIRIN CHEW 81 MG TABLET NG SCH ×2 (08:37→08:44)
[2020-02-02] MEDS: INSULIN GLARGINE 300 UNIT/3 ML PEN SUBQ SCH (08:54)
[2020-02-02] MEDS: cefTRIAXone 2 GM in SODIUM CHLORIDE 0.9% MINIBAG 100 ML IV SCH (08:55)
[2020-02-02] MEDS ORDERED: PANTOPRAZOLE 40 MG VIAL IVP SCH (09:00)
[2020-02-02] MEDS: DOXYCYCLINE INJ 100 MG in SODIUM CHLORIDE 0.9% MINIBAG 100 ML IV SCH ×2 (09:44→20:58)
[2020-02-02] MEDS: NORepinephrine 8 MG in DEXTROSE 5% 250ML IV SCH (14:25)
--- NOTE | 2020-02-02 15:56 | PROVIDER PROGRESS NOTE ---
Subjective - Prog Note Date Prog Note Date: 02/02/20 - Subjective Subjective: Remains on norepinephrine but his requirements are decreasing. He is awake and following commands this morning. He nods yes when asked that he wants the endotracheal tube removed. He denies pain. He is moving all 4 extremities. Current Medications - Current Medications Current Medications: Active Medications Acetaminophen (Tylenol) 650 mg NJ Q6HR PRN PRN Reason: Pain or Fever > 38C (100.4F) Aspirin ([facility] Aspirin) 81 mg NG DAILY [facility] Last Admin: 02/02/20 08:44 Dose: Not Given Documented by: Norepinephrine Bitartrate 8 mg (/ Dextrose) 250 mls @ 15 mls/hr IV .[id number] [facility]; Protocol Last Admin: 02/02/20 14:25 Dose: 3 mcg/min, 5.625 mls/hr Documented by: Acetaminophen (Ofirmev) 100 mls @ 400 mls/hr IV Q6HR PRN PRN Reason: FEVER > 100.5 F Last Infusion: 02/01/20 18:31 Dose: Infused Documented by: Doxycycline Hyclate 100 mg/ (Sodium Chloride) 100 mls @ 100 mls/hr IV BID [facility] Last Infusion: 02/02/20 10:14 Dose: Infused Documented by: Ceftriaxone Sodium 2 gm/ (Sodium Chloride) 100 mls @ 200 mls/hr IV DAILY [facility] Last Infusion: 02/02/20 09:25 Dose: Infused Documented by: Insulin Glargine (Lantus Solostar) 10 unit SUBQ DAILY [facility] Last Admin: 02/02/20 08:54 Dose: 10 unit Documented by: Insulin Human Regular (Humulin R) 1 - 5 unit SUBQ Q6HR [facility]; Protocol Last Admin: 02/02/20 11:58 Dose: 1 unit Documented by: Multi-Ingredient Ointment (Zinc Oxide) 1 applic TOP PRN PRN PRN Reason: Skin Care Last Admin: 02/02/20 05:00 Dose: 1 applic Documented by: Ondansetron HCl (Zofran Inj) 4 mg IVP Q6HR PRN PRN Reason: Nausea / Vomiting Pantoprazole Sodium (Protonix) 40 mg IVP DAILY [facility] Last Admin: 02/02/20 08:43 Dose: 40 mg Documented by: Sodium Chloride (Normal Saline Flush 0.9%) 10 ml IVP 0100,0900,1700 JOHANNY Last Admin: 02/02/20 08:44 Dose: 10 ml Documented by: Sodium Chloride (Normal Saline Flush 0.9%) 10 ml IVP PRN PRN PRN Reason: NEEDED PER PROVIDER ORDERS Last Admin: 01/31/20 20:26 Dose: 10 ml Documented by: Acetaminophen [Tylenol] 325 mg PO Q6H PRN 06/10/17 Calcium Carbonate/Vitamin D3 [Calcium 600-Vit D3 400 Tablet] 1 tab PO BID 06/10/17 Ferrous Sulfate 325 mg PO .QOD 06/10/17 Tamsulosin [Flomax] 0.4 mg PO DAILY 06/10/17 Metformin HCl [Metformin HCl ER] 500 mg PO DAILY 01/29/18 Sertraline HCl 50 mg PO DAILY 01/29/18 Esomeprazole Magnesium 20 mg PO BID 07/28/18 Albuterol Sulfate [Albuterol Sulfate Hfa] 2 - 4 puffs PO Q4H 01/31/20 Insulin NPH Hum/Reg Insulin Hm [Humulin 70/30 Kwikpen] 50 units SQ BIDWM Lisinopril [Prinivil] 5 mg PO DAILY 01/31/20 Objective - Vital Signs/Intake & Output Reviewed Vital Signs: Yes Vital Signs: Vital Signs Temp Pulse Pulse Resp BP BP Pulse Ox 02/02/20 15:00 37.6 C H 125 H 21 107/94 H 98/74 95 02/02/20 14:00 37.4 C 119 H 24 110/68 114/76 97 02/02/20 13:00 37.5 C 107 H 24 117/68 130/71 95 02/02/20 12:05 132 H 02/02/20 12:00 37.3 C 24 123/67 119/62 96 Intake & Output: Intake & Output 01/30/20 01/31/20 02/01/20 02/02/20 23:59 23:59 23:59 23:59 Intake Total 2180.019 4003.889 3733.053 2352.653 Output Total 780 2405 1041 543 Balance 0117.115 1763.889 2692.053 1809.653 - Objective General Appearance: positive: Other (He is lethargic but opens his eyes to command when spoken to. He is following commands off of sedation.) Eyes Bilateral: positive: Normal inspection, Conjunctivae nml ENT: positive: ENT inspection nml, Other (ET tube in place.) Neck: positive: Nml inspection Respiratory: positive: Rales, Other (He has faint rales bilaterally.). negative: Wheezes Cardiovascular: positive: No murmur, Extrasystoles, Tachycardia. negative: Bradycardia, Systolic murmur Abdomen: positive: Non-tender, No distention. negative: Tenderness Skin: positive: Warm, Dry Extremities: positive: Pedal edema (Trace pitting edema in the bilateral lower extremities.) Neurologic/Psychiatric: positive: Other (He is moving all 4 extremities. No obvious focal deficits.) - Lab Results Fish Bones: 02/02/20 16:59 02/02/20 04:45 Other Labs: Lab Results x24hrs 02/02/20 02/02/20 02/02/20 Range/Units 11:39 06:08 04:50 WBC (4.8-10.8) x10^3/uL RBC (4.70-6.10) 10^6/uL Hgb (14.0-18.0) g/dL Hct (42.0-52.0) % MCV (80.0-94.0) fL MCH (27.0-31.0) pg MCHC (32.0-36.0) g/dL RDW (12.0-15.0) % Plt Count (130-450) 10^3/uL MPV (7.4-11.4) fL Neut # (Auto) (1.5-6.6) 10^3/uL Lymph # (Auto) (1.5-3.5) 10^3/uL Wright # (Auto) (0.0-1.0) 10^3/uL Eos # (Auto) (0.0-0.7) 10^3/uL Baso # (Auto) (0.0-0.1) 10^3/uL Absolute Nucleated RBC x10^3/uL Nucleated RBC % /100WBC Anti-Xa Level ( - 0.7) U/mL Bld Gas Analysis Time Sample Site ABG pH (7.35-7.45) ABG pCO2 (34-45) mmHg ABG pO2 (80-100) mmHg ABG HCO3 (22.0-26.0) mmol/L ABG Total CO2 (21.0-29.0) MMOL/L ABG O2 Saturation (94-98) % ABG Base Excess (-2.0-3.0) mmol/L Cirilo Test VBG pH (7.31-7.41) VBG pCO2 (41-51) mmHg VBG pO2 (25-47) mmHg VBG HCO3 (23-28) mmol/L VBG Total CO2 (24-29) mmol/L VBG O2 Saturation (60-80) % VBG Base Excess (-2 - +2) mmol/L Respiration Rate b/min O2 Delivery Device Vent Mode FiO2 Tidal Volume mL PEEP cmH2O Pressure Support Vent cmH2O Sodium (135-145) mmol/L Potassium (3.5-5.0) mmol/L Chloride (101-111) mmol/L Carbon Dioxide (21-32) mmol/L Anion Gap (6-13) BUN (6-20) mg/dL Creatinine (0.6-1.2) mg/dL Estimated GFR (MDRD) (>89) Glucose (70-100) mg/dL POC Whole Bld Glucose 155 H 172 H (70 - 100) mg/dL Calcium (8.5-10.3) mg/dL Phosphorus (2.5-4.6) mg/dL Magnesium (1.7-2.8) mg/dL Troponin I High Sens (2.3-19.7) ng/L B-Natriuretic Peptide 2979 H (5-100) pg/mL Crossmatch IS Only 02/02/20 02/02/20 02/02/20 Range/Units 04:45 04:45 04:45 WBC (4.8-10.8) x10^3/uL RBC (4.70-6.10) 10^6/uL Hgb (14.0-18.0) g/dL Hct (42.0-52.0) % MCV (80.0-94.0) fL MCH (27.0-31.0) pg MCHC (32.0-36.0) g/dL RDW (12.0-15.0) % Plt Count (130-450) 10^3/uL MPV (7.4-11.4) fL Neut # (Auto) (1.5-6.6) 10^3/uL Lymph # (Auto) (1.5-3.5) 10^3/uL Wright # (Auto) (0.0-1.0) 10^3/uL Eos # (Auto) (0.0-0.7) 10^3/uL Baso # (Auto) (0.0-0.1) 10^3/uL Absolute Nucleated RBC x10^3/uL Nucleated RBC % /100WBC Anti-Xa Level 0.2 ( - 0.7) U/mL Bld Gas Analysis Time 0501 Sample Site A-LINE ABG pH 7.40 (7.35-7.45) ABG pCO2 28 L (34-45) mmHg ABG pO2 107 H (80-100) mmHg ABG HCO3 17.3 L (22.0-26.0) mmol/L ABG Total CO2 18.2 L (21.0-29.0) MMOL/L ABG O2 Saturation 97 (94-98) % ABG Base Excess -6.4 L (-2.0-3.0) mmol/L Cirilo Test NOT APPLICABLE VBG pH (7.31-7.41) VBG pCO2 (41-51) mmHg VBG pO2 (25-47) mmHg VBG HCO3 (23-28) mmol/L VBG Total CO2 (24-29) mmol/L VBG O2 Saturation (60-80) % VBG Base Excess (-2 - +2) mmol/L Respiration Rate 16 b/min O2 Delivery Device VENTILATOR Vent Mode SIMV FiO2 0.35 Tidal Volume 500 mL PEEP 5 cmH2O Pressure Support Vent 10 cmH2O Sodium 141 (135-145) mmol/L Potassium 4.3 (3.5-5.0) mmol/L Chloride 114 H (101-111) mmol/L Carbon Dioxide 19 L (21-32) mmol/L Anion Gap 8.0 (6-13) BUN 27 H (6-20) mg/dL Creatinine 1.3 H (0.6-1.2) mg/dL Estimated GFR (MDRD) 54 L (>89) Glucose 194 H (70-100) mg/dL POC Whole Bld Glucose (70 - 100) mg/dL Calcium 9.0 (8.5-10.3) mg/dL Phosphorus 2.6 (2.5-4.6) mg/dL Magnesium 2.0 (1.7-2.8) mg/dL Troponin I High Sens (2.3-19.7) ng/L B-Natriuretic Peptide (5-100) pg/mL Crossmatch IS Only 02/02/20 02/02/20 02/01/20 Range/Units 04:45 00:19 17:06 WBC 12.5 H (4.8-10.8) x10^3/uL RBC 2.98 L (4.70-6.10) 10^6/uL Hgb 9.2 L (14.0-18.0) g/dL Hct 28.4 L (42.0-52.0) % MCV 95.3 H (80.0-94.0) fL MCH 30.9 (27.0-31.0) pg MCHC 32.4 (32.0-36.0) g/dL RDW 15.5 H (12.0-15.0) % Plt Count 221 (130-450) 10^3/uL MPV 10.8 (7.4-11.4) fL Neut # (Auto) 10.2 H (1.5-6.6) 10^3/uL Lymph # (Auto) 1.1 L (1.5-3.5) 10^3/uL Wright # (Auto) 1.1 H (0.0-1.0) 10^3/uL Eos # (Auto) 0.0 (0.0-0.7) 10^3/uL Baso # (Auto) 0.1 (0.0-0.1) 10^3/uL Absolute Nucleated RBC 0.00 x10^3/uL Nucleated RBC % 0.0 /100WBC Anti-Xa Level ( - 0.7) U/mL Bld Gas Analysis Time Sample Site ABG pH (7.35-7.45) ABG pCO2 (34-45) mmHg ABG pO2 (80-100) mmHg ABG HCO3 (22.0-26.0) mmol/L ABG Total CO2 (21.0-29.0) MMOL/L ABG O2 Saturation (94-98) % ABG Base Excess (-2.0-3.0) mmol/L Cirilo Test VBG pH (7.31-7.41) VBG pCO2 (41-51) mmHg VBG pO2 (25-47) mmHg VBG HCO3 (23-28) mmol/L VBG Total CO2 (24-29) mmol/L VBG O2 Saturation (60-80) % VBG Base Excess (-2 - +2) mmol/L Respiration Rate b/min O2 Delivery Device Vent Mode FiO2 Tidal Volume mL PEEP cmH2O Pressure Support Vent cmH2O Sodium (135-145) mmol/L Potassium (3.5-5.0) mmol/L Chloride (101-111) mmol/L Carbon Dioxide (21-32) mmol/L Anion Gap (6-13) BUN (6-20) mg/dL Creatinine (0.6-1.2) mg/dL Estimated GFR (MDRD) (>89) Glucose (70-100) mg/dL POC Whole Bld Glucose 174 H 198 H (70 - 100) mg/dL Calcium (8.5-10.3) mg/dL Phosphorus (2.5-4.6) mg/dL Magnesium (1.7-2.8) mg/dL Troponin I High Sens (2.3-19.7) ng/L B-Natriuretic Peptide (5-100) pg/mL Crossmatch IS Only 02/01/20 02/01/20 01/30/20 Range/Units 15:50 15:27 13:18 WBC (4.8-10.8) x10^3/uL RBC (4.70-6.10) 10^6/uL Hgb (14.0-18.0) g/dL Hct (42.0-52.0) % MCV (80.0-94.0) fL MCH (27.0-31.0) pg MCHC (32.0-36.0) g/dL RDW (12.0-15.0) % Plt Count (130-450) 10^3/uL MPV (7.4-11.4) fL Neut # (Auto) (1.5-6.6) 10^3/uL Lymph # (Auto) (1.5-3.5) 10^3/uL Wright # (Auto) (0.0-1.0) 10^3/uL Eos # (Auto) (0.0-0.7) 10^3/uL Baso # (Auto) (0.0-0.1) 10^3/uL Absolute Nucleated RBC x10^3/uL Nucleated RBC % /100WBC Anti-Xa Level ( - 0.7) U/mL Bld Gas Analysis Time Sample Site ABG pH (7.35-7.45) ABG pCO2 (34-45) mmHg ABG pO2 (80-100) mmHg ABG HCO3 (22.0-26.0) mmol/L ABG Total CO2 (21.0-29.0) MMOL/L ABG O2 Saturation (94-98) % ABG Base Excess (-2.0-3.0) mmol/L Cirilo Test VBG pH 7.356 (7.31-7.41) VBG pCO2 35.6 L (41-51) mmHg VBG pO2 52.9 H (25-47) mmHg VBG HCO3 19.5 L (23-28) mmol/L VBG Total CO2 20.6 L (24-29) mmol/L VBG O2 Saturation 85.6 H (60-80) % VBG Base Excess -5.4 L (-2 - +2) mmol/L Respiration Rate b/min O2 Delivery Device Vent Mode FiO2 Tidal Volume mL PEEP cmH2O Pressure Support Vent cmH2O Sodium (135-145) mmol/L Potassium (3.5-5.0) mmol/L Chloride (101-111) mmol/L Carbon Dioxide (21-32) mmol/L Anion Gap (6-13) BUN (6-20) mg/dL Creatinine (0.6-1.2) mg/dL Estimated GFR (MDRD) (>89) Glucose (70-100) mg/dL POC Whole Bld Glucose (70 - 100) mg/dL Calcium (8.5-10.3) mg/dL Phosphorus (2.5-4.6) mg/dL Magnesium (1.7-2.8) mg/dL Troponin I High Sens 85143.0 H* (2.3-19.7) ng/L B-Natriuretic Peptide (5-100) pg/mL Crossmatch IS Only See Detail Assessment/Plan - Problem List (1) Cardiogenic shock Impression: I do believe his hypotension is secondary to cardiogenic shock rather than sepsis. His troponin was greater than 20,000. He is on norepinephrine but requirements are greatly decreased and he is almost weaned off. His ec hocardiogram did reveal ejection fraction of 20 to 25%. I did discuss transfer with his POA yesterday and she was leaning towards transfer but now that he might be extubated today, she would prefer to ask him what his wishes are as she feels he likely would not want to be transferred as he did not want to come to the hospital in the first place. For the time being, we will continue him on norepinephrine and we will look to wean him off of this later today. We will need to institute appropriate heart failure therapy once his blood pressure remained stable. (2) NSTEMI (non-ST elevated myocardial infarction) Impression: Troponin was greater than 20,000 on admission. His EKG did not reveal any obvious ischemic changes although there is a left bundle branch block. He has completed 48 hours of heparin and we will discontinue this today. We will co ntinue aspirin and Lipitor. We will start him on a beta-pearl when he is weaned off of the norepinephrine as blood pressure remained stable. We will discuss with the patient today once he is extubated if he were to want further cardiac work-up including an angiogram as his POA feels he likely would not want that. (3) On mechanically assisted ventilation Impression: His pressor requirements are decreasing and he is requiring minimal support on the ventilator. He is doing well on his weaning trial this morning with a rapid shallow breathing index less than 35. He is following commands with excellent tidal volumes of 800 and treat. Less than 20. We will plan for extubation this afternoon. I did speak with the patient prior to extubation as we want to clarify if he would want to be reintubated if he were to fail extubation. He has clearly nodded no to reintubation. (4) Community acquired pneumonia Impression: He was febrile yesterday with a leukocytosis. He has been afebrile since antibiotics were instituted and his white count is improved today. Repeat chest x-ray does show some pulmonary vascular congestion and consolidation cannot be ruled out. He is on doxycycline and ceftriaxone today being day 2. The initial infiltrate was present on admission and so he is being treated for community- acquired pneumonia. We will plan for 5 days of treatment. (5) Cardiomyopathy Impression: His echocardiogram did reveal ejection fraction of 20 to 25%. This is felt to likely be ischemic cardiomyopathy given the elevated troponin. He has been treated for NSTEMI with heparin for 48 hours. His BNP is elevated at nearly 3000 his x-ray does reveal some pulmonary vascular congestion. We will diurese him once he is weaned off of the norepinephrine. He will need appropriate medical therapy once he is off of the norepinephrine. Will discuss with the [facility] regarding the need for transfer for angiogram. (6) Anemia Impression: Hemoglobin has remained stable without evidence of further bleeding. His anemia was likely acute blood loss related to the epistaxis which has since resolved. Continue daily CBCs. Qualifiers: Other causes of anemia: acute posthemorrhagic Qualified Code(s): D62 - Acute posthemorrhagic anemia (7) Epistaxis Impression: This has resolved. The packing has been removed and there is no further evidence of bleeding. (8) Type 2 diabetes mellitus treated with insulin Impression: Glucose is currently well controlled. We will continue his current dose of Lantus and sliding scale. We will place him on a carb controlled diet after he is extubated and passes a swallow evaluation. We will reduce his home insulin dose as his A1c is 6%. (9) Acute kidney injury superimposed on CKD Impression: This has resolved and his creatinine is back to baseline of 1.3. He likely has CKD due to his type 2 diabetes. We will continue to monitor his renal function while he is hospitalized.
[2020-02-02] MEDS ORDERED: FUROSEMIDE 40 MG/4 ML VIAL IVP SCH (16:04)
[2020-02-02] MEDS: ACETAMINOPHEN 1,000 MG/100 ML 100 ML IV PRN ×2 (16:13→22:06)
[2020-02-02 17:03] LABS: BASOPHILS # (AUTO) 0.1 10^3/uL (0.0-0.1); BASOPHILS % (AUTO) 0.5 %; EOSINOPHILS # (AUTO) 0.1 10^3/uL (0.0-0.7); EOSINOPHILS % (AUTO) 0.4 %; HGB - HEMOGLOBIN 9.7 g/dL (14.0-18.0); LYMPHOCYTES # (AUTO) 0.9 10^3/uL (1.5-3.5); LYMPHOCYTES % (AUTO) 6.3 %; MEAN CORPUSCULAR HEMOGLOBIN 30.4 pg (27.0-31.0); MEAN CORPUSCULAR HGB CONC 31.1 g/dL (32.0-36.0); MEAN CORPUSCULAR VOLUME 97.8 fL (80.0-94.0); MEAN PLATELET VOLUME 10.3 fL (7.4-11.4); MONOCYTES # (AUTO) 1.2 10^3/uL (0.0-1.0); MONOCYTES % (AUTO) 8.7 %; NEUTROPHILS # (AUTO) 11.6 10^3/uL (1.5-6.6); NEUTROPHILS % (AUTO) 82.9 %; PLT - PLATELET COUNT 261 10^3/uL (130-450); RED BLOOD COUNT 3.19 10^6/uL (4.70-6.10); RED CELL DISTRIBUTION WIDTH 15.4 % (12.0-15.0)
[2020-02-02] MEDS: ATORVASTATIN 40 MG TABLET PO SCH (21:07)
[2020-02-03] MEDS: INSULIN REGULAR HUMAN 300 UNIT/3 ML VIAL SUBQ SCH ×4 (00:02→18:05)
[2020-02-03] MEDS: SODIUM CHLORIDE FLUSH 0.9% 10 ML SYRINGE IVP SCH ×4 (00:06→21:58)
[2020-02-03] MEDS: FUROSEMIDE 20 MG/2 ML VIAL IVP SCH ×2 (00:41→05:59)
[2020-02-03] MEDS: METOPROLOL TARTRATE 25 MG TABLET PO SCH ×3 (01:43→21:42)
[2020-02-03] MEDS: MORPHINE 2 MG/ML CARPUJECT IVP PRN ×4 (01:50→15:30)
[2020-02-03 05:07] LABS: BASOPHILS % (AUTO) 0.3 %; EOSINOPHILS % (AUTO) 0.3 %; HGB - HEMOGLOBIN 9.2 g/dL (14.0-18.0); LYMPHOCYTES # (AUTO) 0.8 10^3/uL (1.5-3.5); LYMPHOCYTES % (AUTO) 6.6 %; MEAN CORPUSCULAR HGB CONC 31.6 g/dL (32.0-36.0); MEAN PLATELET VOLUME 10.4 fL (7.4-11.4); MONOCYTES % (AUTO) 8.3 %; NEUTROPHILS % (AUTO) 83.3 %; PLT - PLATELET COUNT 250 10^3/uL (130-450); RED BLOOD COUNT 2.97 10^6/uL (4.70-6.10); RED CELL DISTRIBUTION WIDTH 15.4 % (12.0-15.0)
[2020-02-03 05:20] LABS: CALCIUM 9.8 mg/dL (8.5-10.3); CREATININE 1.8 mg/dL (0.6-1.2); MAGNESIUM 2.1 mg/dL (1.7-2.8); PHOSPHORUS 3.6 mg/dL (2.5-4.6)
[2020-02-03] MEDS: NORepinephrine 8 MG in DEXTROSE 5% 250ML IV SCH (05:29)
--- NOTE | 2020-02-03 07:32 | PROVIDER PROGRESS NOTE ---
Subjective - Prog Note Date Prog Note Date: 02/03/20 - Subjective Subjective: He reports feeling better today. Denies any dyspnea or chest pain. He does have a cough. He states he does not want transfer for further cardiac evaluation. He prefers to be treated here and to go home as soon as possible. Current Medications - Current Medications Current Medications: Active Medications Acetaminophen (Tylenol) 650 mg UT Q6HR PRN PRN Reason: Pain or Fever > 38C (100.4F) Aspirin ([place] Aspirin) 81 mg NG DAILY [facility] Last Admin: 02/02/20 08:44 Dose: Not Given Documented by: Atorvastatin Calcium (Lipitor) 40 mg PO QPM [facility] Last Admin: 02/02/20 21:07 Dose: Not Given Documented by: Furosemide (Lasix Inj 40 Mg Vial) 40 mg IVP DAILY [facility] Doxycycline Hyclate 100 mg/ (Sodium Chloride) 100 mls @ 100 mls/hr IV BID [facility] Last Infusion: 02/02/20 22:00 Dose: Infused Documented by: Ceftriaxone Sodium 2 gm/ (Sodium Chloride) 100 mls @ 200 mls/hr IV DAILY [facility] Last Admin: 02/03/20 08:20 Dose: 200 mls/hr Documented by: Insulin Glargine (Lantus Solostar) 10 unit SUBQ DAILY [facility] Last Admin: 02/02/20 08:54 Dose: 10 unit Documented by: Insulin Human Regular (Humulin R) 1 - 5 unit SUBQ Q6HR [facility]; Protocol Last Admin: 02/03/20 05:56 Dose: 1 unit Documented by: Metoprolol Tartrate (Lopressor) 25 mg PO BID [facility] Last Admin: 02/03/20 01:43 Dose: Not Given Documented by: Morphine Sulfate (Morphine (Carpuject)) 2 mg IVP Q2HR PRN PRN Reason: PAIN Last Admin: 02/03/20 08:25 Dose: 2 mg Documented by: Multi-Ingredient Ointment (Zinc Oxide) 1 applic TOP PRN PRN PRN Reason: Skin Care Last Admin: 02/02/20 05:00 Dose: 1 applic Documented by: Ondansetron HCl (Zofran Inj) 4 mg IVP Q6HR PRN PRN Reason: Nausea / Vomiting Polyethylene Glycol (Miralax) 17 gm PO DAILY [facility] Sodium Chloride (Normal Saline Flush 0.9%) 10 ml IVP 0100,0900,1700 JOHANNY Last Admin: 02/03/20 08:27 Dose: 10 ml Documented by: Sodium Chloride (Normal Saline Flush 0.9%) 10 ml IVP PRN PRN PRN Reason: NEEDED PER PROVIDER ORDERS Last Admin: 02/03/20 08:14 Dose: 10 ml Documented by: Acetaminophen [Tylenol] 325 mg PO Q6H PRN 06/10/17 Calcium Carbonate/Vitamin D3 [Calcium 600-Vit D3 400 Tablet] 1 tab PO BID 06/10/17 Ferrous Sulfate 325 mg PO .QOD 06/10/17 Tamsulosin [Flomax] 0.4 mg PO DAILY 06/10/17 Metformin HCl [Metformin HCl ER] 500 mg PO DAILY 01/29/18 Sertraline HCl 50 mg PO DAILY 01/29/18 Esomeprazole Magnesium 20 mg PO BID 07/28/18 Albuterol Sulfate [Albuterol Sulfate Hfa] 2 - 4 puffs PO Q4H 01/31/20 Insulin NPH Hum/Reg Insulin Hm [Humulin 70/30 Kwikpen] 50 units SQ BIDWM 01/31/20 Lisinopril [Prinivil] 5 mg PO DAILY 01/31/20 Objective - Vital Signs/Intake & Output Reviewed Vital Signs: Yes Vital Signs: Vital Signs Temp Pulse Resp BP Pulse Ox 02/03/20 07:00 37.2 C 104 H 26 H 128/74 02/03/20 06:00 37.1 C 102 H 22 123/87 H 02/03/20 05:00 37.2 C 103 H 23 110/74 100 02/03/20 04:00 37.3 C 100 26 H 102/67 100 Intake & Output: Intake & Output 01/31/20 02/01/20 02/02/20 02/03/20 23:59 23:59 23:59 23:59 Intake Total 4003.889 3733.053 2666.465 Output Total 2405 1041 1112 290 Balance 3223.641 5621.053 1554.465 -290 - Objective General Appearance: positive: No acute distress, Alert Eyes Bilateral: positive: Normal inspection, Conjunctivae nml ENT: positive: ENT inspection nml Neck: positive: Nml inspection Respiratory: positive: No respiratory distress, Other (He is not in distress but he is tachypneic. Breath sounds are diminished bilaterally.) Cardiovascular: positive: No murmur, Extrasystoles, Tachycardia. negative: Systolic murmur Abdomen: positive: Non-tender, No distention. negative: Tenderness Skin: positive: Warm, Dry Extremities: positive: Full ROM, No pedal edema Neurologic/Psychiatric: positive: Other (No focal deficits. Flat affect.). negative: Disoriented to person, Disoriented to place - Lab Results Fish Bones: 02/03/20 04:45 02/03/20 04:45 Other Labs: Lab Results x24hrs 02/03/20 02/03/20 02/03/20 Range/Units 05:54 04:45 04:45 WBC 12.0 H (4.8-10.8) x10^3/uL RBC 2.97 L (4.70-6.10) 10^6/uL Hgb 9.2 L (14.0-18.0) g/dL Hct 29.1 L (42.0-52.0) % MCV 98.0 H (80.0-94.0) fL MCH 31.0 (27.0-31.0) pg MCHC 31.6 L (32.0-36.0) g/dL RDW 15.4 H (12.0-15.0) % Plt Count 250 (130-450) 10^3/uL MPV 10.4 (7.4-11.4) fL Neut # (Auto) 10.0 H (1.5-6.6) 10^3/uL Lymph # (Auto) 0.8 L (1.5-3.5) 10^3/uL [place] # (Auto) 1.0 (0.0-1.0) 10^3/uL Eos # (Auto) 0.0 (0.0-0.7) 10^3/uL Baso # (Auto) 0.0 (0.0-0.1) 10^3/uL Absolute Nucleated RBC 0.00 x10^3/uL Nucleated RBC % 0.0 /100WBC Sodium (135-145) mmol/L Potassium (3.5-5.0) mmol/L Chloride (101-111) mmol/L Carbon Dioxide (21-32) mmol/L Anion Gap (6-13) BUN (6-20) mg/dL Creatinine (0.6-1.2) mg/dL Estimated GFR (MDRD) (>89) Glucose (70-100) mg/dL POC Whole Bld Glucose 167 H (70 - 100) mg/dL Calcium (8.5-10.3) mg/dL Phosphorus (2.5-4.6) mg/dL Magnesium (1.7-2.8) mg/dL B-Natriuretic Peptide 4065 H (5-100) pg/mL Crossmatch IS Only 02/03/20 02/02/20 02/02/20 Range/Units 04:45 23:36 17:42 WBC (4.8-10.8) x10^3/uL RBC (4.70-6.10) 10^6/uL Hgb (14.0-18.0) g/dL Hct (42.0-52.0) % MCV (80.0-94.0) fL MCH (27.0-31.0) pg MCHC (32.0-36.0) g/dL RDW (12.0-15.0) % Plt Count (130-450) 10^3/uL MPV (7.4-11.4) fL Neut # (Auto) (1.5-6.6) 10^3/uL Lymph # (Auto) (1.5-3.5) 10^3/uL [place] # (Auto) (0.0-1.0) 10^3/uL Eos # (Auto) (0.0-0.7) 10^3/uL Baso # (Auto) (0.0-0.1) 10^3/uL Absolute Nucleated RBC x10^3/uL Nucleated RBC % /100WBC Sodium 140 (135-145) mmol/L Potassium 4.5 (3.5-5.0) mmol/L Chloride 109 (101-111) mmol/L Carbon Dioxide 19 L (21-32) mmol/L Anion Gap 12.0 (6-13) BUN 38 H (6-20) mg/dL Creatinine 1.8 H (0.6-1.2) mg/dL Estimated GFR (MDRD) 37 L (>89) Glucose 181 H (70-100) mg/dL POC Whole Bld Glucose 175 H 179 H (70 - 100) mg/dL Calcium 9.8 (8.5-10.3) mg/dL Phosphorus 3.6 (2.5-4.6) mg/dL Magnesium 2.1 (1.7-2.8) mg/dL B-Natriuretic Peptide (5-100) pg/mL Crossmatch IS Only 02/02/20 02/02/20 02/02/20 Range/Units 16:59 11:39 04:50 WBC 14.0 H (4.8-10.8) x10^3/uL RBC 3.19 L (4.70-6.10) 10^6/uL Hgb 9.7 L (14.0-18.0) g/dL Hct 31.2 L (42.0-52.0) % MCV 97.8 H (80.0-94.0) fL MCH 30.4 (27.0-31.0) pg MCHC 31.1 L (32.0-36.0) g/dL RDW 15.4 H (12.0-15.0) % Plt Count 261 (130-450) 10^3/uL MPV 10.3 (7.4-11.4) fL Neut # (Auto) 11.6 H (1.5-6.6) 10^3/uL Lymph # (Auto) 0.9 L (1.5-3.5) 10^3/uL [place] # (Auto) 1.2 H (0.0-1.0) 10^3/uL Eos # (Auto) 0.1 (0.0-0.7) 10^3/uL Baso # (Auto) 0.1 (0.0-0.1) 10^3/uL Absolute Nucleated RBC 0.00 x10^3/uL Nucleated RBC % 0.0 /100WBC Sodium (135-145) mmol/L Potassium (3.5-5.0) mmol/L Chloride (101-111) mmol/L Carbon Dioxide (21-32) mmol/L Anion Gap (6-13) BUN (6-20) mg/dL Creatinine (0.6-1.2) mg/dL Estimated GFR (MDRD) (>89) Glucose (70-100) mg/dL POC Whole Bld Glucose 155 H (70 - 100) mg/dL Calcium (8.5-10.3) mg/dL Phosphorus (2.5-4.6) mg/dL Magnesium (1.7-2.8) mg/dL B-Natriuretic Peptide 2979 H (5-100) pg/mL Crossmatch IS Only 01/30/20 Range/Units 13:18 WBC (4.8-10.8) x10^3/uL RBC (4.70-6.10) 10^6/uL Hgb (14.0-18.0) g/dL Hct (42.0-52.0) % MCV (80.0-94.0) fL MCH (27.0-31.0) pg MCHC (32.0-36.0) g/dL RDW (12.0-15.0) % Plt Count (130-450) 10^3/uL MPV (7.4-11.4) fL Neut # (Auto) (1.5-6.6) 10^3/uL Lymph # (Auto) (1.5-3.5) 10^3/uL [place] # (Auto) (0.0-1.0) 10^3/uL Eos # (Auto) (0.0-0.7) 10^3/uL Baso # (Auto) (0.0-0.1) 10^3/uL Absolute Nucleated RBC x10^3/uL Nucleated RBC % /100WBC Sodium (135-145) mmol/L Potassium (3.5-5.0) mmol/L Chloride (101-111) mmol/L Carbon Dioxide (21-32) mmol/L Anion Gap (6-13) BUN (6-20) mg/dL Creatinine (0.6-1.2) mg/dL Estimated GFR (MDRD) (>89) Glucose (70-100) mg/dL POC Whole Bld Glucose (70 - 100) mg/dL Calcium (8.5-10.3) mg/dL Phosphorus (2.5-4.6) mg/dL Magnesium (1.7-2.8) mg/dL B-Natriuretic Peptide (5-100) pg/mL Crossmatch IS Only See Detail Assessment/Plan - Problem List (1) Acute systolic heart failure Impression: Although he is not hypoxic, he is still tachypneic at rest although he denies feeling short of breath. Chest x-ray yesterday was consistent with pulmonary v ascular congestion and his BNP has increased to 4000 today. His echocardiogram did reveal ejection fraction of 20 to 25%. We will start him on Lasix 40 mg IV daily. We have started him on a beta-pearl today at 20 mg twice daily. We will hold off on lisinopril and Aldactone given his acute kidney injury. Continue with daily weights. Strict I's and O's. (2) Acute kidney injury superimposed on CKD Impression: He has CKD with a baseline creatinine of approximately 1.5. His creatinine had improved to 1.3 but today it is increased once again to 1.8. Suspect this may be cardiorenal syndrome given the heart failure. We will give him Lasix 40 mg IV daily. We will hold off on lisinopril and Aldactone for the time being. Avoid nephrotoxins. Continue to monitor his renal function and urine output. If his renal function continues to decline then we will obtain urine electrolytes and repeat urinalysis. (3) Cardiogenic shock Impression: This has resolved. He is now weaned off of the norepinephrine. We will slowly initiate heart failure therapy medications and monitor his blood pressure closely. Patient has declined transfer to higher level of care. (4) NSTEMI (non-ST elevated myocardial infarction) Impression: His troponin peaked at over 20,000. His echocardiogram revealed an ejection fraction of 20 to 25%. He has been treated with heparin for 48 hours and this has since been discontinued. We will continue aspirin and Lipitor. We will start him on beta-pearl today now that he is off of the norepinephrine and his blood pressure can tolerate it. The patient has declined transfer for angiogram. We will continue with medical management alone. (5) Community acquired pneumonia Impression: His white count continues to improve. He did have low-grade fevers yesterday evening but nothing above 38 C. Chest x-ray did reveal possible bilateral infiltrates which could be pulmonary vascular congestion or infiltrates. Given his white count and fever a few days ago, we have decided to treat him for commu nity-acquired pneumonia as his infiltrates were present on admission. We will continue doxycycline and ceftriaxone with today being day 3. (6) Cardiomyopathy Impression: This is suspected to be ischemia related given his elevated troponin and NSTEMI. Ejection fraction is 20 to 25%. He has declined transfer for an angiogram. We will continue with medical management as mentioned above. (7) Anemia Impression: This was felt to be acute blood loss anemia secondary to epistaxis. His hemoglobin has since remained stable without further evidence of bleeding. We will continue to monitor his hemoglobin daily. Qualifiers: Other causes of anemia: acute posthemorrhagic Qualified Code(s): D62 - Acute posthemorrhagic anemia (8) Type 2 diabetes mellitus treated with insulin Impression: Blood glucose is better controlled ranging in the 160s to 170s. We will continue the current dose of Lantus and sliding scale. We will place him on a carb controlled diet once he passes his swallow evaluation which will be obtaine d 24 hours post extubation. We will need to reduce his home dose of insulin as his A1c is 6%. (9) Epistaxis Impression: This has since resolved.
[2020-02-03] MEDS: SODIUM CHLORIDE FLUSH 0.9% 10 ML SYRINGE IVP PRN ×2 (08:14→12:42)
[2020-02-03] MEDS: cefTRIAXone 2 GM in SODIUM CHLORIDE 0.9% MINIBAG 100 ML IV SCH (08:20)
[2020-02-03] MEDS: DOXYCYCLINE INJ 100 MG in SODIUM CHLORIDE 0.9% MINIBAG 100 ML IV SCH ×2 (08:50→20:25)
[2020-02-03] MEDS: FUROSEMIDE 40 MG/4 ML VIAL IVP SCH (09:26)
[2020-02-03] MEDS: ASPIRIN CHEW 81 MG TABLET NG SCH (09:26)
[2020-02-03] MEDS: polyethylene glycoL 3350 17 GM PACKET PO SCH (09:27)
[2020-02-03] MEDS: INSULIN GLARGINE 300 UNIT/3 ML PEN SUBQ SCH (09:31)
[2020-02-03] MEDS: ATORVASTATIN 40 MG TABLET PO SCH (21:42)
[2020-02-04] MEDS: INSULIN REGULAR HUMAN 300 UNIT/3 ML VIAL SUBQ SCH ×4 (00:12→18:12)
[2020-02-04] MEDS: MORPHINE 2 MG/ML CARPUJECT IVP PRN ×3 (01:49→23:52)
[2020-02-04] MEDS: SODIUM CHLORIDE FLUSH 0.9% 10 ML SYRINGE IVP PRN ×4 (01:50→15:05)
[2020-02-04] MEDS ORDERED: METOPROLOL 5 MG/5 ML VIAL IVP PRN (02:10)
[2020-02-04] MEDS: METOPROLOL 5 MG/5 ML VIAL IVP SCH ×4 (02:53→21:31)
[2020-02-04 05:39] LABS: BASOPHILS # (AUTO) 0.1 10^3/uL (0.0-0.1); BASOPHILS % (AUTO) 0.7 %; EOSINOPHILS # (AUTO) 0.2 10^3/uL (0.0-0.7); EOSINOPHILS % (AUTO) 1.8 %; HGB - HEMOGLOBIN 9.5 g/dL (14.0-18.0); LYMPHOCYTES # (AUTO) 1.5 10^3/uL (1.5-3.5); MEAN CORPUSCULAR HEMOGLOBIN 30.4 pg (27.0-31.0); MEAN CORPUSCULAR HGB CONC 30.7 g/dL (32.0-36.0); MEAN CORPUSCULAR VOLUME 98.7 fL (80.0-94.0); MONOCYTES # (AUTO) 1.1 10^3/uL (0.0-1.0); MONOCYTES % (AUTO) 8.2 %; NEUTROPHILS # (AUTO) 10.4 10^3/uL (1.5-6.6); PLT - PLATELET COUNT 378 10^3/uL (130-450); RED BLOOD COUNT 3.13 10^6/uL (4.70-6.10); RED CELL DISTRIBUTION WIDTH 15.4 % (12.0-15.0); WHITE BLOOD COUNT 13.5 x10^3/uL (4.8-10.8)
[2020-02-04 05:51] LABS: CREATININE 1.8 mg/dL (0.6-1.2); MAGNESIUM 2.2 mg/dL (1.7-2.8); PHOSPHORUS 3.5 mg/dL (2.5-4.6)
[2020-02-04] MEDS: cefTRIAXone 2 GM in SODIUM CHLORIDE 0.9% MINIBAG 100 ML IV SCH (08:19)
[2020-02-04] MEDS: SODIUM CHLORIDE FLUSH 0.9% 10 ML SYRINGE IVP SCH ×2 (08:21→17:16)
[2020-02-04] MEDS: DOXYCYCLINE INJ 100 MG in SODIUM CHLORIDE 0.9% MINIBAG 100 ML IV SCH ×2 (09:10→21:33)
[2020-02-04] MEDS: INSULIN GLARGINE 300 UNIT/3 ML PEN SUBQ SCH (09:18)
[2020-02-04] MEDS: ASPIRIN CHEW 81 MG TABLET NG SCH (09:18)
[2020-02-04] MEDS: polyethylene glycoL 3350 17 GM PACKET PO SCH (09:20)
[2020-02-04] MEDS: FUROSEMIDE 40 MG/4 ML VIAL IVP SCH (09:21)
--- NOTE | 2020-02-04 16:03 | PROVIDER PROGRESS NOTE ---
Assessment/Plan - Problem List (1) Acute systolic heart failure Assessment/Plan: His Echocardiogram did reveal ejection fraction of 20 to 25%. Although he is not hypoxic, he is still tachypneic with moving and [possibly with speaking. Chest x-ray showed pulmonary vascular congestion and his BNP increased to 4000 yesterday. BNP is 3700 today. We started him on Lasix 40 mg IV daily. Continue with daily weights. Strict I's and O's. We have started him on a beta-pearl. We will hold off on lisinopril and Aldactone given his acute kidney injury. (2) Community acquired pneumonia Assessment/Plan: Chest x-ray did reveal possible bilateral infiltrates which could be pulmonary vascular congestion or infiltrates. Given his white count and fever a few days ago, we have decided to treat him for community-acquired pneumonia as his infiltrates were present on admission. We will continue doxycycline and ceftriaxone. A total 7-day course is planned. (3) Acute NV Assessment/Plan: His troponins peaked at > [id number]. The NV was the likely cause of shock, and not a GI bleed. When he was intubated, his DPOA the cousin, did not want him transferred for higher level of care. After he was extubated, he said he did not want to be transferred to a hospital with higher level of care to undergo an angiogram either. Medical management only is planned. He received 48 hours of IV heparin. He is on aspirin, statin, beta-pearl, now the blood pressure has improved (4) Cardiomyopathy Qualifiers: Cardiomyopathy type: ischemic Qualified Code(s): I25.5 - Ischemic cardiomyopathy Assessment/Plan: This is suspected to be ischemia related given his elevated troponin and NSTEMI. Ejection fraction is 20 to 25%. He has declined transfer for an angiogram. We will continue with medical management as mentioned above. His BP is tolerating B-blockers, no GUSTAVO or Spironolactone started yet. (5) Acute kidney injury superimposed on CKD Assessment/Plan: He has CKD with a baseline creatinine of approximately 1.5. His creatinine had improved to 1.3 then increased once again to 1.8 yesterday and today. Suspect this may be cardiorenal syndrome given the heart failure. We will give him Lasix 40 mg IV daily. We will hold off on lisinopril and Aldactone for the time being. Avoid nephrotoxins. Continue to monitor his renal function and urine output. If his renal function continues to decline then we will obtain urine electrolytes and repeat urinalysis. (6) Anemia due to GI blood loss Assessment/Plan: The staff at his [facility], sent him in due to "sitting in bloody diarrhea". He had an urgent EGD that showed no source of bleed. In the end, the anemia was felt to be acute blood loss anemia secondary to epistaxis. His hemoglobin has since remained stable without further evidence of bleeding. Continue to monitor his hemoglobin daily. (7) Diabetes mellitus with insulin therapy Assessment/Plan: Blood glucose is better controlled ranging in the 160s to 170s. We will continue the current dose of Lantus and sliding scale. We will place him on a carb controlled diet once he passes his swallow evaluation We will need to reduce his home dose of insulin as his A1c is 6%. (8) BPH (benign prostatic hyperplasia) Assessment/Plan: He was on meds for this at home. They were not immediately restarted due to hypotension/ cardiogenic shock. (9) Poor memory Assessment/Plan: At admission, he was presented to me as having "developmental delay". 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 Now that he is extubated and awake, his mentation is not entirely normal, as noted by the RNs. Today I did a bedside cognitive eval and he did very poorly. Will ask for cognitive eval from OT. Will obtain a head CT to evaluate for cause of possible dementia. This plan was discussed with the DPOA, outside the patient's room, and she agreed. (10) History of COPD Assessment/Plan: He does not appear to have a COPD exacerbation currently, the BNP elevation and chest x-ray findings are consistent with CHF. (11) On mechanically assisted ventilation Assessment/Plan: Extubated 3 days ago. (12) Cardiogenic shock Assessment/Plan: This has resolved. He is now weaned off of the norepinephrine. We will slowly initiate heart failure therapy medications and monitor his blood pressure closely. Patient has declined transfer to higher level of care. (13) Epistaxis Assessment/Plan: Resolved. The tampon in his L nostril has been removed days ago. - Current Meds Current Meds: Current Medications Generic Name Dose Route Start Last Admin Trade Name Freq PRN Reason Stop Dose Admin Aspirin 81 mg 02/02/20 09:00 02/04/20 09:18 [facility] Aspirin NG Not Given DAILY [facility] Atorvastatin Calcium 40 mg 02/02/20 21:00 02/03/20 21:42 Lipitor PO Not Given QPM JOHANNY Furosemide 40 mg 02/03/20 09:00 02/04/20 09:21 Lasix Inj 40 Mg Vial IVP 40 mg DAILY JOHANNY Administration Doxycycline Hyclate 100 mg/ 100 mls @ 100 mls/hr 02/01/20 09:00 02/04/20 10:10 Sodium Chloride IV Infused BID JOHANNY Infusion Ceftriaxone Sodium 2 gm/ 100 mls @ 200 mls/hr 02/01/20 09:00 02/04/20 08:50 Sodium Chloride IV Infused DAILY JOHANNY Infusion Insulin Glargine 10 unit 02/01/20 09:00 02/04/20 09:18 Lantus Solostar SUBQ 10 unit DAILY JOHANNY Administration Insulin Human Regular 1 - 5 unit 01/31/20 12:09 02/04/20 12:08 Humulin R SUBQ 1 unit Q6HR JOHANNY Administration Protocol Metoprolol Tartrate 5 mg 02/04/20 03:00 02/04/20 15:03 Lopressor Inj IVP 5 mg Q6H JOHANNY Administration Morphine Sulfate 2 mg 02/03/20 00:28 02/04/20 11:40 Morphine (Carpuject) IVP 2 mg Q2HR PRN Administration PAIN Multi-Ingredient Ointment 1 applic 01/31/20 23:33 02/02/20 05:00 Zinc Oxide TOP 1 applic PRN PRN Administration Skin Care Polyethylene Glycol 17 gm 02/03/20 09:00 02/04/20 09:20 Miralax PO Not Given DAILY JOHANNY Sodium Chloride 10 ml 01/30/20 17:00 02/04/20 08:21 Normal Saline Flush 0.9% IVP 10 ml 0100,0900,1700 JOHANNY Administration Sodium Chloride 10 ml 01/30/20 16:19 02/04/20 15:05 Normal Saline Flush 0.9% IVP 10 ml PRN PRN Administration NEEDED PER PROVIDER ORDERS - Lab Result Fish Bone Diagrams: 02/04/20 05:00 02/04/20 05:00 Subjective - Subjective Patient Reports: Resting Comfortably, Other (Complains of feeling dehydrated, wants Coke or Pepsi; he is awaiting a swallowing eval.) Objective Vital Signs: Vital Signs - 24 hr 02/03/20 02/03/20 02/03/20 17:00 18:00 19:00 Temperature 37.5 C 37.5 C 37.6 C H Heart Rate [ 94 102 H 100 Monitoring electrodes] Respiratory 20 23 25 H Rate Blood Pressure Blood Pressure 115/52 L 120/75 105/62 [Left Brachial artery] O2 Saturation 97 99 95 02/03/20 02/03/20 02/03/20 20:00 21:00 22:03 Temperature 37.7 C H Heart Rate [ 106 H 102 H 96 Monitoring electrodes] Respiratory 24 29 H 24 Rate Blood Pressure Blood Pressure 107/66 127/73 141/54 H [Left Brachial artery] O2 Saturation 96 93 90 L 02/03/20 02/04/20 02/04/20 23:00 00:00 01:00 Temperature 37.5 C 37.3 C Heart Rate [ 97 106 H 105 H Monitoring electrodes] Respiratory 24 19 26 H Rate Blood Pressure Blood Pressure 124/62 139/97 H 135/76 H [Left Brachial artery] O2 Saturation 96 95 94 02/04/20 02/04/20 02/04/20 02:13 02:20 02:25 Temperature 37.8 C H Heart Rate [ 94 83 79 Monitoring electrodes] Respiratory 25 H 19 Rate Blood Pressure 117/58 L Blood Pressure 117/58 L 106/44 L 103/42 L [Left Brachial artery] O2 Saturation 95 95 02/04/20 02/04/20 02/04/20 02:30 02:35 02:45 Temperature Heart Rate [ 77 77 78 Monitoring electrodes] Respiratory Rate Blood Pressure 89/57 L Blood Pressure 88/55 L 100/56 L 89/57 L [Left Brachial artery] O2 Saturation 02/04/20 02/04/20 02/04/20 03:00 04:00 05:00 Temperature 37.6 C H 37.5 C 37.6 C H Heart Rate [ 80 92 95 Monitoring electrodes] Respiratory 23 26 H 26 H Rate Blood Pressure Blood Pressure 86/60 L 107/70 83/71 L [Left Brachial artery] O2 Saturation 97 99 96 02/04/20 02/04/20 02/04/20 06:02 07:00 08:00 Temperature 37.6 C H 37.5 C Heart Rate [ 91 94 97 Monitoring electrodes] Respiratory 28 H 15 24 Rate Blood Pressure Blood Pressure 100/53 L 112/55 L 121/68 [Left Brachial artery] O2 Saturation 97 02/04/20 02/04/20 02/04/20 09:00 09:19 10:00 Temperature 37.5 C 37.5 C Heart Rate [ 79 86 Monitoring electrodes] Respiratory 16 34 H Rate Blood Pressure 111/60 Blood Pressure 111/60 104/56 L [Left Brachial artery] O2 Saturation 96 95 02/04/20 02/04/20 02/04/20 11:00 12:00 13:00 Temperature 37.5 C 37.6 C H 37.5 C Heart Rate [ 88 91 91 Monitoring electrodes] Respiratory 28 H 24 16 Rate Blood Pressure Blood Pressure 104/54 L 101/69 [Left Brachial artery] O2 Saturation 95 95 96 02/04/20 02/04/20 02/04/20 14:00 15:00 15:03 Temperature 37.5 C 37.2 C Heart Rate [ 86 79 Monitoring electrodes] Respiratory 15 23 Rate Blood Pressure 118/54 L Blood Pressure 140/85 H 118/54 L [Left Brachial artery] O2 Saturation 95 95 Oxygen O2 Source [With Activity] Nasal cannula O2 Source Room air I&O (Last 24 Hrs): Intake and Output Totals x24h 02/02/20 02/03/20 02/04/20 23:59 23:59 23:59 Intake Total 2667.301 385 200 Output Total 1112 1265 605 Balance 1555.301 -803 -510 General: Alert HEENT: Other (Dry oral mucosa) Neuro: Alert, Disoriented, Non Focal, Other (He thinks he is [place], he could not remember where he was born, he could not remember 3 words to memorize, but counting backwards was good.) Cardiovascular: Regular rate Respiratory: Other (diminished) Abdomen: Soft Extremities: No edema - Results Results: Laboratory Results WBC 13.5 x10^3/uL (4.8-10.8) H 02/04/20 05:00 RBC 3.13 10^6/uL (4.70-6.10) L 02/04/20 05:00 Hgb 9.5 g/dL (14.0-18.0) L 02/04/20 05:00 Hct 30.9 % (42.0-52.0) L 02/04/20 05:00 MCV 98.7 fL (80.0-94.0) H 02/04/20 05:00 MCH 30.4 pg (27.0-31.0) 02/04/20 05:00 MCHC 30.7 g/dL (32.0-36.0) L 02/04/20 05:00 RDW 15.4 % (12.0-15.0) H 02/04/20 05:00 Plt Count 378 10^3/uL (130-450) 02/04/20 05:00 MPV 11.0 fL (7.4-11.4) 02/04/20 05:00 Neut # (Auto) 10.4 10^3/uL (1.5-6.6) H 02/04/20 05:00 Lymph # (Auto) 1.5 10^3/uL (1.5-3.5) 02/04/20 05:00 [place] # (Auto) 1.1 10^3/uL (0.0-1.0) H 02/04/20 05:00 Eos # (Auto) 0.2 10^3/uL (0.0-0.7) 02/04/20 05:00 Baso # (Auto) 0.1 10^3/uL (0.0-0.1) 02/04/20 05:00 Absolute Nucleated RBC 0.03 x10^3/uL 02/04/20 05:00 Nucleated RBC % 0.2 /100WBC 02/04/20 05:00 PT 14.8 secs (9.9-12.6) H 01/31/20 04:27 INR 1.3 (0.8-1.2) H 01/31/20 04:27 Anti-Xa Level 0.2 U/mL (-0.7) 02/02/20 04:45 Bld Gas Analysis Time 0501 02/02/20 04:45 Sample Site A-LINE 02/02/20 04:45 ABG pH 7.40 (7.35-7.45) 02/02/20 04:45 ABG pCO2 28 mmHg (34-45) L 02/02/20 04:45 ABG pO2 107 mmHg (80-100) H 02/02/20 04:45 ABG HCO3 17.3 mmol/L (22.0-26.0) L 02/02/20 04:45 ABG Total CO2 18.2 MMOL/L (21.0-29.0) L 02/02/20 04:45 ABG O2 Saturation 97 % (94-98) 02/02/20 04:45 ABG Base Excess -6.4 mmol/L (-2.0-3.0) L 02/02/20 04:45 Cirilo Test NOT APPLICABLE 02/02/20 04:45 VBG pH 7.356 (7.31-7.41) 02/01/20 15:50 VBG pCO2 35.6 mmHg (41-51) L 02/01/20 15:50 VBG pO2 52.9 mmHg (25-47) H 02/01/20 15:50 VBG HCO3 19.5 mmol/L (23-28) L 02/01/20 15:50 VBG Total CO2 20.6 mmol/L (24-29) L 02/01/20 15:50 VBG O2 Saturation 85.6 % (60-80) H 02/01/20 15:50 VBG Base Excess -5.4 mmol/L (-2 - +2) L 02/01/20 15:50 Respiration Rate 16 b/min 02/02/20 04:45 O2 Delivery Device VENTILATOR 02/02/20 04:45 Vent Mode SIMV 02/02/20 04:45 FiO2 0.35 02/02/20 04:45 Tidal Volume 500 mL 02/02/20 04:45 PEEP 5 cmH2O 02/02/20 04:45 Pressure Support Vent 10 cmH2O 02/02/20 04:45 Sodium 141 mmol/L (135-145) 02/04/20 05:00 Potassium 4.3 mmol/L (3.5-5.0) 02/04/20 05:00 Chloride 107 mmol/L (101-111) 02/04/20 05:00 Carbon Dioxide 19 mmol/L (21-32) L 02/04/20 05:00 Anion Gap 15.0 (6-13) H 02/04/20 05:00 BUN 49 mg/dL (6-20) H 02/04/20 05:00 Creatinine 1.8 mg/dL (0.6-1.2) H 02/04/20 05:00 Estimated GFR (MDRD) 37 (>89) L 02/04/20 05:00 Glucose 175 mg/dL (70-100) H 02/04/20 05:00 POC Whole Bld Glucose 166 mg/dL (70 - 100) H 02/04/20 11:55 Estimat Average Glucose 126 mg/dL (70-100) H 01/31/20 04:25 Hemoglobin A1c % 6.0 % (4.27-6.07) 01/31/20 04:25 Calcium 10.0 mg/dL (8.5-10.3) 02/04/20 05:00 Phosphorus 3.5 mg/dL (2.5-4.6) 02/04/20 05:00 Magnesium 2.2 mg/dL (1.7-2.8) 02/04/20 05:00 Total Bilirubin 1.0 mg/dL (0.2-1.0) 01/30/20 12:15 AST 133 IU/L (10-42) H 01/30/20 12:15 ALT 25 IU/L (10-60) 01/30/20 12:15 Alkaline Phosphatase 49 IU/L (42-121) 01/30/20 12:15 Troponin I High Sens 51589.0 ng/L (2.3-19.7) H* 02/01/20 15:27 B-Natriuretic Peptide 3798 pg/mL (5-100) H 02/04/20 05:00 Total Protein 7.0 g/dL (6.7-8.2) 01/30/20 12:15 Albumin 3.7 g/dL (3.2-5.5) 01/30/20 12:15 Globulin 3.3 g/dL (2.1-4.2) 01/30/20 12:15 Albumin/Globulin Ratio 1.1 (1.0-2.2) 01/30/20 12:15 Triglycerides 242 mg/dL (-149) H 02/01/20 04:30 Cholesterol 159 mg/dL (-199) 02/01/20 04:30 LDL Cholesterol, Calc 86 mg/dL (-129) 02/01/20 04:30 VLDL Cholesterol 48 mg/dL 02/01/20 04:30 HDL Cholesterol 25 mg/dL (60-) L 02/01/20 04:30 LDL/HDL Ratio 3.4 (<3.6) 02/01/20 04:30 Cholesterol/HDL Ratio 6.4 (<5.0) 02/01/20 04:30 TSH 0.69 uIU/mL (0.34-5.60) 01/31/20 04:27 Urine Color YELLOW 01/30/20 18:40 Urine Clarity CLEAR (CLEAR) 01/30/20 18:40 Urine pH 5.0 PH (5.0-7.5) 01/30/20 18:40 Ur Specific [place] 1.025 (1.002-1.030) 01/30/20 18:40 Urine Protein NEGATIVE mg/dL (NEGATIVE) 01/30/20 18:40 Urine Glucose (UA) NEGATIVE mg/dL (NEGATIVE) 01/30/20 18:40 Urine Ketones NEGATIVE mg/dL (NEGATIVE) 01/30/20 18:40 Urine Occult Blood TRACE-INTA (NEGATIVE) 01/30/20 18:40 Urine Nitrite NEGATIVE (NEGATIVE) 01/30/20 18:40 Urine Bilirubin NEGATIVE (NEGATIVE) 01/30/20 18:40 Urine Urobilinogen 0.2 (NORMAL) E.U./dL (NORMAL) 01/30/20 18:40 Ur Leukocyte Esterase NEGATIVE (NEGATIVE) 01/30/20 18:40 Ur Microscopic Review NOT INDICATED 01/30/20 18:40 Urine Culture Comments NOT INDICATED 01/30/20 18:40 Nasal Screen MRSA (PCR) NEGATIVE (NEGATIVE) 01/30/20 15:45 Blood Type AB NEGATIVE 01/30/20 13:18 Antibody Screen NEGATIVE 01/30/20 13:18 Crossmatch IS Only See Detail 01/30/20 13:18 - Procedures Procedures: Procedures BLADDER SPHINCTEROTOMY (05/10/13) CYSTOSCOPY NEC (05/10/13) DX ULTRASOUND NEC (05/10/13) EXCISION OF SIGMOID COLON, ENDO (11/15/15) EXCISION OF STOMACH, PYLORUS, ENDO, DIAGN (11/15/15) INSERT INDWELLING CATH (05/10/13) OTH TRANSURETHRAL PROSTATECTOMY (12/14/12) TRANSFUSE NONAUT FROZEN PLASMA IN PERIPH VEIN, PERC (11/15/15) TRANSFUSE NONAUT RED BLOOD CELLS IN PERIPH VEIN, PERC (11/15/15)
--- NOTE | 2020-02-04 21:03 | CT Report ---
PROCEDURE: HEAD WO INDICATIONS: Dementia TECHNIQUE: Noncontrast 4.5 mm thick angled axial sections acquired from the foramen magnum to the vertex. For r adiation dose reduction, the following was used: automated exposure control, adjustment of mA and/or kV according to patient size. COMPARISON: None. FINDINGS: Image quality: Excellent. CSF spaces: The ventricular system and basilar cisterns are patent. No abnormal extra axial fluid col lection. Brain: Global cerebral volume loss with passive expansion of the ventricles and extra axial spaces. N o mass effect or midline shift. Graft and white matter differentiation is maintained, without CT evid ence of acute large territory infarct. There is mild chronic microvascular ischemic change. No intrac ranial masses or hemorrhage. Bello-white matter interface is normal. Extensive vertebral and carotid artery atherosclerotic calcifications. Skull and face: Calvarium and visualized facial bones are intact, without suspicious lesions. Sinuses: Visualized sinuses and mastoids are clear. IMPRESSION: Global cerebral volume loss with mild chronic microvascular ischemic changes. Atherosclerosis. Reviewed by: Konrad Nelson MD on 02/04/2020 9:01 PM PDT Approved by: Konrad Nelson MD on 02/04/2020 9:01 PM PDT Station ID: [id number]
[2020-02-04] MEDS: ATORVASTATIN 40 MG TABLET PO SCH (21:31)
[2020-02-05 05:04] LABS: CALCIUM 10.3 mg/dL (8.5-10.3); CREATININE 1.9 mg/dL (0.6-1.2); MAGNESIUM 2.4 mg/dL (1.7-2.8); PHOSPHORUS 4.2 mg/dL (2.5-4.6)
[2020-02-05] MEDS: METOPROLOL 5 MG/5 ML VIAL IVP SCH (05:12)
[2020-02-05] MEDS: SODIUM CHLORIDE FLUSH 0.9% 10 ML SYRINGE IVP SCH ×4 (05:13→17:11)
--- NOTE | 2020-02-05 07:57 | PROVIDER PROGRESS NOTE ---
Assessment/Plan - Problem List (1) Acute systolic heart failure Assessment/Plan: He is still intermittently tachypneic even at rest, when talking or moving in bed. His FiO2 has decreased down to room air however. We will transition his IV Lasix to oral. Will transition his IV beta-pearl to oral. Will slowly resume his GUSTAVO inhibitor and eventually start spironolactone. Bringing these meds and slowly as the plan because he was hypotensive and still has a "soft" blood pressure. (2) Community acquired pneumonia Assessment/Plan: Chest x-ray did reveal possible bilateral infiltrates which could have been pulmonary vascular congestion or infiltrates. Because he had an elevated white count and fever a few days ago, we decided to treat him for community-acquired pneumonia, since his infiltrates were present on admission. We will continue doxycycline and ceftriaxone. A total 7-day course is planned. Today is Day #5. (3) Acute LA Assessment/Plan: Troponins peaked at greater than 21,000. This was the reason for his cardiogenic shock at presentation, and not hemorrhagic shock from GI blood loss. He is on baby aspirin daily (not given yesterday's morning dose because he was NPO until he passed his swallow eval late yesterday afternoon), statin and beta- blockers. No intervention was requested therefore also no transfer to higher level of care. He may start with PT. (4) Cardiomyopathy Qualifiers: Cardiomyopathy type: ischemic Qualified Code(s): I25.5 - Ischemic cardiomyopathy Assessment/Plan: LVEF is 20% by echo done this admission, probably from the acute LA. Management as in #1 and #2 above (5) Vascular dementia with behavior disturbance Assessment/Plan: The cousin, MICHEL, at his bedside, yesterday told me that he "swears constantly ". He was put on an antidepressant by his PCP and was told that this will probably decrease his swearing; the cousin herself heard that explanation, she must have accompanied him to the PCP visit. Yesterday he could not safely swallow, was choking, could not follow directions. yesterday he was NPO until he passed his swallow eval late yesterday afternoon. 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 CT scan of the head was done (overnight) and shows volume loss of the brain and microangiopathic changes. This is consistent with Vascular Dementia due to his aging, hypertension and diabetes. Cognitive eval with OT is planned for Friday (today is Friday and OT is not here on the weekend). This amount of dementia may mean that he cannot return to his current residence at [facility] any longer, he will need a Memory Care location. I will inform Social Work of this. (6) Acute kidney injury superimposed on CKD Assessment/Plan: He presented with creatinine of 2.4, this got better to creatinine of 1.3 and has now worsened and he is plateauing at about 1.8. Avoid nephrotoxins. Today, will transition his IV Lasix to oral. Plan to start GUSTAVO inhibitor and spironolactone staggered and in slow steps. (7) Diabetes mellitus with insulin therapy Assessment/Plan: His A1c was 6.0 indicating control that was too tight and he was on insulin at the [facility]. The insulin doses will need to be lower He will be on a carb controlled diet, long-acting and sliding scale insulin for an eating pt. (8) Anemia due to GI blood loss Assessment/Plan: Hemoglobin has been stable. There are no signs of GI bleeding. A guaiac test of the stool is still pending. Will resume his oral iron replacement that he was on at home. (9) BPH (benign prostatic hyperplasia) Assessment/Plan: His home meds were not resumed yet because of his low blood pressure until yesterday. We will resume his Flomax today. We will plan on discontinuation of the Gomez tomorrow. (10) History of COPD Assessment/Plan: Today, he is wheezing and he has this intermittent increased work of breathing. Today's chest x-ray did not show any worsening of CHF or pneumonia therefore leeanne l treat for a COPD exacerbation. Start Xopenex inhalers. No steroids or empiric antibiotics since he is not coughing. (11) On mechanically assisted ventilation Assessment/Plan: Resolved (12) Cardiogenic shock Assessment/Plan: Resolved (13) Epistaxis Assessment/Plan: Resolved, tampon is out several days - Current Meds Current Meds: Current Medications Generic Name Dose Route Start Last Admin Trade Name Freq PRN Reason Stop Dose Admin Acetaminophen 650 mg 02/01/20 15:24 02/04/20 23:52 Tylenol MI 650 mg Q6HR PRN Administration Pain or Fever > 38C (100.4F) Aspirin 81 mg 02/02/20 09:00 02/04/20 09:18 [facility] Aspirin NG Not Given DAILY [facility] Atorvastatin Calcium 40 mg 02/02/20 21:00 02/04/20 21:31 Lipitor PO 40 mg QPM JOHANNY Administration Furosemide 40 mg 02/03/20 09:00 02/04/20 09:21 Lasix Inj 40 Mg Vial IVP 40 mg DAILY JOHANNY Administration Doxycycline Hyclate 100 mg/ 100 mls @ 100 mls/hr 02/01/20 09:00 02/04/20 22:35 Sodium Chloride IV Infused BID JOHANNY Infusion Ceftriaxone Sodium 2 gm/ 100 mls @ 200 mls/hr 02/01/20 09:00 02/04/20 08:50 Sodium Chloride IV Infused DAILY JOHANNY Infusion Insulin Glargine 10 unit 02/01/20 09:00 02/04/20 09:18 Lantus Solostar SUBQ 10 unit DAILY JOHANNY Administration Metoprolol Tartrate 5 mg 02/04/20 03:00 02/05/20 05:12 Lopressor Inj IVP 5 mg Q6H JOHANNY Administration Morphine Sulfate 2 mg 02/03/20 00:28 02/04/20 23:52 Morphine (Carpuject) IVP 2 mg Q2HR PRN Administration PAIN Multi-Ingredient Ointment 1 applic 01/31/20 23:33 02/02/20 05:00 Zinc Oxide TOP 1 applic PRN PRN Administration Skin Care Polyethylene Glycol 17 gm 02/03/20 09:00 02/04/20 09:20 Miralax PO Not Given DAILY JOHANNY Sodium Chloride 10 ml 01/30/20 17:00 02/05/20 05:13 Normal Saline Flush 0.9% IVP 10 ml 0100,0900,1700 JOHANNY Administration Sodium Chloride 10 ml 01/30/20 16:19 02/04/20 15:05 Normal Saline Flush 0.9% IVP 10 ml PRN PRN Administration NEEDED PER PROVIDER ORDERS - Lab Result Fish Bone Diagrams: 02/04/20 05:00 02/05/20 04:37 - Additional Planning My Orders: My Active Orders 02/04/20 Dinner Dysphagia Puree Diet [DIET] 02/04/20 18:04 Miscellaenous Nursing Order [RC] QSHIFT Subjective - Subjective Patient Reports: Fatigue (He told his nurse he is exhausted after being up with PT today), Other (sleeping) Objective Vital Signs: Vital Signs - 24 hr 02/04/20 02/04/20 02/04/20 08:00 09:00 09:19 Temperature 37.5 C 37.5 C Heart Rate [ 97 79 Monitoring electrodes] Respiratory 24 16 Rate Blood Pressure 111/60 Blood Pressure 121/68 111/60 [Left Brachial artery] Blood Pressure [Right Radial artery] O2 Saturation 97 96 02/04/20 02/04/20 02/04/20 10:00 11:00 12:00 Temperature 37.5 C 37.5 C 37.6 C H Heart Rate [ 86 88 91 Monitoring electrodes] Respiratory 34 H 28 H 24 Rate Blood Pressure Blood Pressure 104/56 L 104/54 L 101/69 [Left Brachial artery] Blood Pressure [Right Radial artery] O2 Saturation 95 95 95 02/04/20 02/04/20 02/04/20 13:00 14:00 15:00 Temperature 37.5 C 37.5 C 37.2 C Heart Rate [ 91 86 79 Monitoring electrodes] Respiratory 16 15 23 Rate Blood Pressure Blood Pressure 140/85 H 118/54 L [Left Brachial artery] Blood Pressure [Right Radial artery] O2 Saturation 96 95 95 02/04/20 02/04/20 02/04/20 15:03 16:00 17:00 Temperature 37.2 C 37.3 C Heart Rate [ 85 85 Monitoring electrodes] Respiratory 22 30 H Rate Blood Pressure 118/54 L Blood Pressure 112/56 L 109/66 [Left Brachial artery] Blood Pressure [Right Radial artery] O2 Saturation 94 94 02/04/20 02/04/20 02/04/20 18:00 19:00 20:00 Temperature 37.3 C 37.3 C 37.4 C Heart Rate [ 87 89 90 Monitoring electrodes] Respiratory 18 21 25 H Rate Blood Pressure Blood Pressure 129/69 138/93 H 138/93 H [Left Brachial artery] Blood Pressure [Right Radial artery] O2 Saturation 94 95 90 L 02/04/20 02/04/20 02/04/20 21:30 21:31 22:00 Temperature 37.6 C H 37.5 C Heart Rate [ 85 Monitoring electrodes] Respiratory 25 H 26 H Rate Blood Pressure 142/125 H Blood Pressure 142/125 H 127/81 H [Left Brachial artery] Blood Pressure [Right Radial artery] O2 Saturation 95 02/04/20 02/05/20 02/05/20 23:30 00:00 01:00 Temperature 37.9 C H 37.9 C H Heart Rate [ 105 H 96 97 Monitoring electrodes] Respiratory 30 H 33 H 26 H Rate Blood Pressure Blood Pressure 118/72 100/78 110/54 L [Left Brachial artery] Blood Pressure [Right Radial artery] O2 Saturation 92 02/05/20 02/05/20 02/05/20 02:00 03:00 04:00 Temperature 37.7 C H 37.8 C H 37.5 C Heart Rate [ 97 100 98 Monitoring electrodes] Respiratory 23 15 Rate Blood Pressure Blood Pressure 115/62 105/62 117/53 L [Left Brachial artery] Blood Pressure [Right Radial artery] O2 Saturation 94 95 02/05/20 02/05/20 02/05/20 05:00 05:12 06:00 Temperature 37.6 C H 37.5 C Heart Rate [ 95 83 Monitoring electrodes] Respiratory 29 H 22 Rate Blood Pressure 123/65 Blood Pressure 123/65 [Left Brachial artery] Blood Pressure 119/70 [Right Radial artery] O2 Saturation 95 02/05/20 07:00 Temperature 37.5 C Heart Rate [ 90 Monitoring electrodes] Respiratory 24 Rate Blood Pressure Blood Pressure 110/70 [Left Brachial artery] Blood Pressure [Right Radial artery] O2 Saturation Oxygen O2 Source [With Activity] Nasal cannula O2 Source Room air I&O (Last 24 Hrs): Intake and Output Totals x24h 02/03/20 02/04/20 02/05/20 23:59 23:59 23:59 Intake Total 385 350 Output Total 1265 860 265 Balance -880 -510 -265 General: Other (Somnolent, using abdominal muscles for respiration) HEENT: Mucous membr. moist/pink Neck: Supple, No JVD Neuro: Alert, Non Focal Cardiovascular: No murmurs Respiratory: Wheezes, Rales Abdomen: Soft, No tenderness, Other (Mildly distended, diminid=shed bowel sounds) Genitourinary: Other (Has a Gomez) Extremities: No edema - Results Results: Laboratory Results WBC 13.5 x10^3/uL (4.8-10.8) H 02/04/20 05:00 RBC 3.13 10^6/uL (4.70-6.10) L 02/04/20 05:00 Hgb 9.5 g/dL (14.0-18.0) L 02/04/20 05:00 Hct 30.9 % (42.0-52.0) L 02/04/20 05:00 MCV 98.7 fL (80.0-94.0) H 02/04/20 05:00 MCH 30.4 pg (27.0-31.0) 02/04/20 05:00 MCHC 30.7 g/dL (32.0-36.0) L 02/04/20 05:00 RDW 15.4 % (12.0-15.0) H 02/04/20 05:00 Plt Count 378 10^3/uL (130-450) 02/04/20 05:00 MPV 11.0 fL (7.4-11.4) 02/04/20 05:00 Neut # (Auto) 10.4 10^3/uL (1.5-6.6) H 02/04/20 05:00 Lymph # (Auto) 1.5 10^3/uL (1.5-3.5) 02/04/20 05:00 [place] # (Auto) 1.1 10^3/uL (0.0-1.0) H 02/04/20 05:00 Eos # (Auto) 0.2 10^3/uL (0.0-0.7) 02/04/20 05:00 Baso # (Auto) 0.1 10^3/uL (0.0-0.1) 02/04/20 05:00 Absolute Nucleated RBC 0.03 x10^3/uL 02/04/20 05:00 Nucleated RBC % 0.2 /100WBC 02/04/20 05:00 PT 14.8 secs (9.9-12.6) H 01/31/20 04:27 INR 1.3 (0.8-1.2) H 01/31/20 04:27 Anti-Xa Level 0.2 U/mL (-0.7) 02/02/20 04:45 Bld Gas Analysis Time 0501 02/02/20 04:45 Sample Site A-LINE 02/02/20 04:45 ABG pH 7.40 (7.35-7.45) 02/02/20 04:45 ABG pCO2 28 mmHg (34-45) L 02/02/20 04:45 ABG pO2 107 mmHg (80-100) H 02/02/20 04:45 ABG HCO3 17.3 mmol/L (22.0-26.0) L 02/02/20 04:45 ABG Total CO2 18.2 MMOL/L (21.0-29.0) L 02/02/20 04:45 ABG O2 Saturation 97 % (94-98) 02/02/20 04:45 ABG Base Excess -6.4 mmol/L (-2.0-3.0) L 02/02/20 04:45 Cirilo Test NOT APPLICABLE 02/02/20 04:45 VBG pH 7.356 (7.31-7.41) 02/01/20 15:50 VBG pCO2 35.6 mmHg (41-51) L 02/01/20 15:50 VBG pO2 52.9 mmHg (25-47) H 02/01/20 15:50 VBG HCO3 19.5 mmol/L (23-28) L 02/01/20 15:50 VBG Total CO2 20.6 mmol/L (24-29) L 02/01/20 15:50 VBG O2 Saturation 85.6 % (60-80) H 02/01/20 15:50 VBG Base Excess -5.4 mmol/L (-2 - +2) L 02/01/20 15:50 Respiration Rate 16 b/min 02/02/20 04:45 O2 Delivery Device VENTILATOR 02/02/20 04:45 Vent Mode SIMV 02/02/20 04:45 FiO2 0.35 02/02/20 04:45 Tidal Volume 500 mL 02/02/20 04:45 PEEP 5 cmH2O 02/02/20 04:45 Pressure Support Vent 10 cmH2O 02/02/20 04:45 Sodium 144 mmol/L (135-145) 02/05/20 04:37 Potassium 4.5 mmol/L (3.5-5.0) 02/05/20 04:37 Chloride 109 mmol/L (101-111) 02/05/20 04:37 Carbon Dioxide 21 mmol/L (21-32) 02/05/20 04:37 Anion Gap 14.0 (6-13) H 02/05/20 04:37 BUN 68 mg/dL (6-20) H 02/05/20 04:37 Creatinine 1.9 mg/dL (0.6-1.2) H 02/05/20 04:37 Estimated GFR (MDRD) 35 (>89) L 02/05/20 04:37 Glucose 189 mg/dL (70-100) H 02/05/20 04:37 POC Whole Bld Glucose 163 mg/dL (70 - 100) H 02/04/20 17:52 Estimat Average Glucose 126 mg/dL (70-100) H 01/31/20 04:25 Hemoglobin A1c % 6.0 % (4.27-6.07) 01/31/20 04:25 Calcium 10.3 mg/dL (8.5-10.3) 02/05/20 04:37 Phosphorus 4.2 mg/dL (2.5-4.6) 02/05/20 04:37 Magnesium 2.4 mg/dL (1.7-2.8) 02/05/20 04:37 Total Bilirubin 1.0 mg/dL (0.2-1.0) 01/30/20 12:15 AST 133 IU/L (10-42) H 01/30/20 12:15 ALT 25 IU/L (10-60) 01/30/20 12:15 Alkaline Phosphatase 49 IU/L (42-121) 01/30/20 12:15 Troponin I High Sens 45655.0 ng/L (2.3-19.7) H* 02/01/20 15:27 B-Natriuretic Peptide 3798 pg/mL (5-100) H 02/04/20 05:00 Total Protein 7.0 g/dL (6.7-8.2) 01/30/20 12:15 Albumin 3.7 g/dL (3.2-5.5) 01/30/20 12:15 Globulin 3.3 g/dL (2.1-4.2) 01/30/20 12:15 Albumin/Globulin Ratio 1.1 (1.0-2.2) 01/30/20 12:15 Triglycerides 242 mg/dL (-149) H 02/01/20 04:30 Cholesterol 159 mg/dL (-199) 02/01/20 04:30 LDL Cholesterol, Calc 86 mg/dL (-129) 02/01/20 04:30 VLDL Cholesterol 48 mg/dL 02/01/20 04:30 HDL Cholesterol 25 mg/dL (60-) L 02/01/20 04:30 LDL/HDL Ratio 3.4 (<3.6) 02/01/20 04:30 Cholesterol/HDL Ratio 6.4 (<5.0) 02/01/20 04:30 TSH 0.69 uIU/mL (0.34-5.60) 01/31/20 04:27 Urine Color YELLOW 01/30/20 18:40 Urine Clarity CLEAR (CLEAR) 01/30/20 18:40 Urine pH 5.0 PH (5.0-7.5) 01/30/20 18:40 Ur Specific [place] 1.025 (1.002-1.030) 01/30/20 18:40 Urine Protein NEGATIVE mg/dL (NEGATIVE) 01/30/20 18:40 Urine Glucose (UA) NEGATIVE mg/dL (NEGATIVE) 01/30/20 18:40 Urine Ketones NEGATIVE mg/dL (NEGATIVE) 01/30/20 18:40 Urine Occult Blood TRACE-INTA (NEGATIVE) 01/30/20 18:40 Urine Nitrite NEGATIVE (NEGATIVE) 01/30/20 18:40 Urine Bilirubin NEGATIVE (NEGATIVE) 01/30/20 18:40 Urine Urobilinogen 0.2 (NORMAL) E.U./dL (NORMAL) 01/30/20 18:40 Ur Leukocyte Esterase NEGATIVE (NEGATIVE) 01/30/20 18:40 Ur Microscopic Review NOT INDICATED 01/30/20 18:40 Urine Culture Comments NOT INDICATED 01/30/20 18:40 Nasal Screen MRSA (PCR) NEGATIVE (NEGATIVE) 01/30/20 15:45 Blood Type AB NEGATIVE 01/30/20 13:18 Antibody Screen NEGATIVE 01/30/20 13:18 Crossmatch IS Only See Detail 01/30/20 13:18 - Procedures Procedures: Procedures BLADDER SPHINCTEROTOMY (05/10/13) CYSTOSCOPY NEC (05/10/13) DX ULTRASOUND NEC (05/10/13) EXCISION OF SIGMOID COLON, ENDO (11/15/15) EXCISION OF STOMACH, PYLORUS, ENDO, DIAGN (11/15/15) INSERT INDWELLING CATH (05/10/13) OTH TRANSURETHRAL PROSTATECTOMY (12/14/12) TRANSFUSE NONAUT FROZEN PLASMA IN PERIPH VEIN, PERC (11/15/15) TRANSFUSE NONAUT RED BLOOD CELLS IN PERIPH VEIN, PERC (11/15/15)
[2020-02-05] MEDS ORDERED: INSULIN ASPART 300 UNIT/3 ML PEN SUBQ SCH (08:00)
[2020-02-05] MEDS: DOXYCYCLINE INJ 100 MG in SODIUM CHLORIDE 0.9% MINIBAG 100 ML IV SCH ×2 (08:35→21:23)
[2020-02-05] MEDS: INSULIN GLARGINE 300 UNIT/3 ML PEN SUBQ SCH (08:42)
[2020-02-05] MEDS: polyethylene glycoL 3350 17 GM PACKET PO SCH (08:44)
[2020-02-05] MEDS: ASPIRIN CHEW 81 MG TABLET NG SCH (08:45)
[2020-02-05] MEDS: TAMSULOSIN 0.4 MG CAPSULE PO SCH (08:46)
[2020-02-05] MEDS ORDERED: FUROSEMIDE 40 MG TABLET PO SCH (09:00)
[2020-02-05] MEDS: MORPHINE 2 MG/ML CARPUJECT IVP PRN (09:21)
[2020-02-05] MEDS: cefTRIAXone 2 GM in SODIUM CHLORIDE 0.9% MINIBAG 100 ML IV SCH (09:58)
[2020-02-05] MEDS: SODIUM CHLORIDE FLUSH 0.9% 10 ML SYRINGE IVP PRN (10:21)
[2020-02-05] MEDS ORDERED: INSULIN REGULAR HUMAN 300 UNIT/3 ML VIAL SUBQ SCH (12:00)
--- NOTE | 2020-02-05 12:14 | XRAY Report ---
PROCEDURE: Chest 1 View X-Ray INDICATIONS: Wheezing TECHNIQUE: One view of the chest was acquired. COMPARISON: 02/02/2020, 01/30/2020 FINDINGS: Surgical changes and devices: There is a stable right-sided central line. Endotracheal tube and the g astric tube have been removed. Lungs and pleura: The lungs are better aerated, with increased volume and decreased interstitial prom inence. No large pneumothorax is seen. There is blunting of the left costophrenic angle, which is att ributed to small pleural effusion. Mediastinum: The aorta is prominent and tortuous and demonstrates calcification. The cardiac contour s are within mildly to moderately enlarged. Bones and chest wall: No suspicious bony lesions. Age-appropriate degenerative changes are seen. O verlying soft tissues appear unremarkable. IMPRESSION: Improved appearance of the lungs, with decreased interstitial prominence. A likely small left-sided pleural effusion is seen. Mild to moderate cardiomegaly. Stable right-sided central line. Reviewed by: Morgan Alston MD on 02/05/2020 11:13 AM JULISSA Approved by: Morgan Alston MD on 02/05/2020 11:13 AM JULISSA Station ID: [id number]
[2020-02-05] MEDS: FERROUS SULFATE 325 MG TABLET PO SCH (12:28)
[2020-02-05] MEDS ORDERED: LEVALBUTEROL 1.25 MG/3 ML NEB INH PRN (14:15)
[2020-02-05] MEDS: INSULIN REGULAR HUMAN 300 UNIT/3 ML VIAL SUBQ SCH ×2 (16:44→21:23)
[2020-02-05] MEDS: METOPROLOL SUCCINATE 25 MG TABLET PO SCH (17:52)
[2020-02-05] MEDS: CALCIUM CARB (OYSTER SHELL) 500 MG TABLET PO SCH (21:22)
[2020-02-05] MEDS: SERTRALINE 50 MG TABLET PO SCH (21:23)
[2020-02-05] MEDS: ATORVASTATIN 40 MG TABLET PO SCH (21:23)
[2020-02-05] MEDS: CHOLECALCIFEROL 400 UNIT TABLET PO SCH (21:27)
[2020-02-06 05:20] LABS: CALCIUM 10.1 mg/dL (8.5-10.3); CREATININE 2.1 mg/dL (0.6-1.2)
--- NOTE | 2020-02-06 08:09 | PROVIDER PROGRESS NOTE ---
Assessment/Plan - Problem List (1) Hypernatremia Assessment/Plan: Sodium has risen to 140 yesterday and 146 today. This is undoubtedly from being on IV twice daily Lasix. It also parallels worsening BUN/creatinine. We will stop his Lasix entirely. We will give 2 L of IV free water (D5W) slowly, over 24 hours. This may be a reason he feels so weak. Remain in the ICU. Check sodium in 12 hours. Follow BMP daily (2) Acute kidney injury superimposed on CKD Assessment/Plan: BUN/creat 68/1.9yesterday has worsened to 77/2.1 today. The rising creatinine from several days ago was thought to be cardiorenal syndrome with high venous pressure and therefore the Lasix was continued the past 2 to 3 days. It appears it is not cardiorenal syndrome but actually this is ATN with intravascular volume depletion, that is causing this JUANA. Will stop Lasix entirely. We will infuse iv fluids back slowly, to prevent a CHF exacerbation, over 24 hours. Remain in the ICU. (3) Generalized weakness Assessment/Plan: This is probably multifactorial: from ICU hospitalization, hypotension, anemia, hypoxemia and stress from being up for several days straight without sleeping. He is now napping. PT and OT will be put on hold for today. (4) Insomnia Assessment/Plan: Ever since extubation off the ventilator, approximately 4 days ago, he has not had adequate sleep at night, he remains awake. We will add Benadryl treatment at at bedtime. Will avoid narcotics or Ambien since they can have a prolonged effect and add to lethargy, weakness and daytime confusion. (5) COPD (chronic obstructive pulmonary disease) Assessment/Plan: Yesterday he started wheezing. A chest x-ray did not show worsening pneumonia in fact infiltrates had cleared, and CXR did not show worsening CHF, in fact CHF had cleared. Has a history of COPD. He was on MDIs at home as needed. Today he is desaturating to 70s and 80% on room air, while asleep Here, he was started on Xopenex yesterday. Continue with supplemental oxygen. We will add steroids for COPD management. Remain in the ICU (6) Acute [place] Assessment/Plan: Patient is now on aspirin, statin, beta-pearl. (7) Cardiomyopathy Qualifiers: Cardiomyopathy type: ischemic Qualified Code(s): I25.5 - Ischemic card iomyopathy Assessment/Plan: The LVEF was documented at 20 to 25% by echo. Beta-pearl has been started, once blood pressure improved. Because of JUANA, no Spironolactone or Lisinopril were started yet (8) Vascular dementia with behavior disturbance Assessment/Plan: The head CT showed parenchymal volume loss and microangiopathic seen changes, this is consistent with vascular dementia. I told the DPOA these results yesterday, and we will do an official cognitive evaluation by OT on Friday (today is Friday and they are not here). He was restarted back on his antidepressant yesterday; this was started by his PCP for behavioral disturbance (he swears all the time), probably out of frustration, we surmise. This also means he cannot return back to [facility] but needs a higher level of caregiving location. This was reported to the Social Workers who will speak to the DPOA regarding choicing. (9) Diabetes mellitus with insulin therapy Assessment/Plan: He is on a pured diet because of swallowing problem and this was recommended by the speech therapist. He is also on carb controlled diet, and insulin coverage. The insulin needs will go up while he is getting 24 hours of D5W. (10) Anemia Qualifiers: Other causes of anemia: acute posthemorrhagic Assessment/Plan: Hemoglobin has been stable at 9.5 approximately. His home iron replacement therapy orally has been resumed. Follow CBC intermittently. (11) BPH (benign prostatic hyperplasia) Assessment/Plan: His Flomax was started yesterday. The Gomez is to be discontinued today. He has already been very much wanting to use a bedside commode, having Gomez out will help with this. (12) On mechanically assisted ventilation Assessment/Plan: Resolved (13) Cardiogenic shock Assessment/Plan: Resolved (14) Epistaxis Assessment/Plan: Resolved (15) Acute systolic heart failure Assessment/Plan: Resolved. Will stop Lasix because of his hyponatremia and JUANA (16) Community acquired pneumonia Assessment/Plan: His chest x-ray showed resolution of pneumonia. He has completed 6 days of IV antibiotics. Since the IV antibiotics are in saline, will stop them now. - Current Meds Current Meds: Current Medications Generic Name Dose Route Start Last Admin Trade Name Freq PRN Reason Stop Dose Admin Acetaminophen 650 mg 02/01/20 15:24 02/04/20 23:52 Tylenol IN 650 mg Q6HR PRN Administration Pain or Fever > 38C (100.4F) Aspirin 81 mg 02/02/20 09:00 02/05/20 08:45 [facility] [place] Aspirin NG 81 mg DAILY JOHANNY Administration Atorvastatin Calcium 40 mg 02/02/20 21:00 02/05/20 21:23 Lipitor PO 40 mg QPM JOHANNY Administration Calcium Carbonate/Glycine 500 mg 02/05/20 21:00 02/05/20 21:22 Oysco-500 PO 500 mg BID JOHANNY Administration Cholecalciferol 400 unit 02/05/20 21:00 02/05/20 21:27 Vitamin D3 PO 400 unit BID JOHANNY Administration Ferrous Sulfate 325 mg 02/05/20 12:00 02/05/20 12:28 Feosol PO 325 mg Q48H JOHANNY Administration Doxycycline Hyclate 100 mg/ 100 mls @ 100 mls/hr 02/01/20 09:00 02/05/20 21:23 Sodium Chloride IV 100 mls/hr BID JOHANNY Administration Ceftriaxone Sodium 2 gm/ 100 mls @ 200 mls/hr 02/01/20 09:00 02/05/20 10:38 Sodium Chloride IV Infused DAILY JOHANNY Infusion Insulin Glargine 10 unit 02/01/20 09:00 02/05/20 08:42 Lantus Solostar SUBQ 10 unit DAILY JOHANNY Administration Insulin Human Regular 1 - 9 unit 02/05/20 17:00 02/05/20 21:23 Humulin R SUBQ 3 unit 0800,1200,1700,2100 JOHANNY Administration Protocol Metoprolol Succinate 12.5 mg 02/05/20 18:00 02/05/20 17:52 Toprol Xl PO 12.5 mg 0900,1800 JOHANNY Administration Morphine Sulfate 2 mg 02/03/20 00:28 02/05/20 09:21 Morphine (Carpuject) IVP 2 mg Q2HR PRN Administration PAIN Multi-Ingredient Ointment 1 applic 01/31/20 23:33 02/02/20 05:00 Zinc Oxide TOP 1 applic PRN PRN Administration Skin Care Ondansetron HCl 4 mg 01/30/20 16:19 02/05/20 17:11 Zofran Inj IVP 4 mg Q6HR PRN Administration Nausea / Vomiting Polyethylene Glycol 17 gm 02/03/20 09:00 02/05/20 08:44 Miralax PO 17 gm DAILY JOHANNY Administration Sertraline HCl 50 mg 02/05/20 21:00 02/05/20 21:23 Zoloft PO 50 mg QPM JOHANNY Administration Sodium Chloride 10 ml 01/30/20 17:00 02/05/20 17:11 Normal Saline Flush 0.9% IVP 10 ml 0100,0900,1700 JOHANNY Administration Sodium Chloride 10 ml 01/30/20 16:19 02/05/20 10:21 Normal Saline Flush 0.9% IVP 10 ml PRN PRN Administration NEEDED PER PROVIDER ORDERS Tamsulosin HCl 0.4 mg 02/05/20 09:00 02/05/20 08:46 Flomax PO 0.4 mg DAILY JOHANNY Administration - Lab Result Fish Bone Diagrams: 02/06/20 08:19 02/06/20 14:25 - Additional Planning My Orders: My Active Orders 02/05/20 09:00 Tamsulosin [Flomax] 0.4 mg PO DAILY 02/05/20 12:00 Ferrous Sulfate [Feosol] 325 mg PO Q48H 02/05/20 14:15 Nebulizer/MDI Tx. [RC] .q4prn Resp Teach Nebulizer/MDI [RC] .ONCE Levalbuterol [Xopenex] 1.25 mg INH Q4H PRN 02/05/20 17:00 Insulin Regular Human [Humulin R] 1 - 9 unit SUBQ 0800,1200,1700,2100 02/05/20 18:00 Metoprolol Succinate [Toprol Xl] 12.5 mg PO 0900,1800 02/05/20 21:00 Calcium Carb (Oyster Shell) [Oysco-500] 500 mg PO BID Cholecalciferol [Vitamin D3] 400 unit PO BID Sertraline [Zoloft] 50 mg PO QPM 02/06/20 CBC - COMP BLD CT W/AUTO DIFF [HEME] Urgent 02/06/20 07:00 Gomez Discontinuation [RC] ONCE 02/06/20 09:00 D5W @ 83.333 mls/hr Dextrose 5% [D5w] 1,000 ml IV 83.333 mls/hr Subjective - Subjective Patient Reports: Resting Comfortably Nursing Reports: Other (Nurse reports he is sleepy and barely opens his eyes today, request that Gomez not be discontinued today. He had BMs today.) Objective Vital Signs: Vital Signs - 24 hr 02/05/20 02/05/20 02/05/20 10:00 11:00 12:00 Temperature 37.4 C 37.6 C H Heart Rate Heart Rate [ 90 91 96 Monitoring electrodes] Respiratory 26 H 26 H 27 H Rate Blood Pressure 118/91 H 155/66 H 116/103 H [Left Brachial artery] O2 Saturation 02/05/20 02/05/20 02/05/20 13:00 14:00 15:00 Temperature 37.6 C H 36.4 C L Heart Rate Heart Rate [ 98 97 99 Monitoring electrodes] Respiratory 30 H 28 H 27 H Rate Blood Pressure 116/75 137/74 H 137/74 H [Left Brachial artery] O2 Saturation 96 96 96 02/05/20 02/05/20 02/05/20 15:06 16:00 17:00 Temperature 37.6 C H 37.2 C 37.4 C Heart Rate 98 Heart Rate [ 93 94 Monitoring electrodes] Respiratory 20 17 30 H Rate Blood Pressure 100/84 H 131/85 H [Left Brachial artery] O2 Saturation 96 02/05/20 02/05/20 02/05/20 18:00 19:00 20:00 Temperature 37.1 C 37.3 C Heart Rate Heart Rate [ 97 99 99 Monitoring electrodes] Respiratory 25 H 25 H 33 H Rate Blood Pressure 114/83 H 120/84 H 139/83 H [Left Brachial artery] O2 Saturation 96 02/05/20 02/05/20 02/05/20 21:00 22:00 23:00 Temperature 37.3 C 37.2 C 36.9 C Heart Rate Heart Rate [ 90 86 90 Monitoring electrodes] Respiratory 16 23 28 H Rate Blood Pressure 109/38 L 113/60 125/92 H [Left Brachial artery] O2 Saturation 02/06/20 02/06/20 02/06/20 00:00 01:18 PDT 02:00 Temperature 36.9 C 36.3 C L Heart Rate Heart Rate [ 81 83 84 Monitoring electrodes] Respiratory 21 28 H 20 Rate Blood Pressure 117/65 118/64 105/53 L [Left Brachial artery] O2 Saturation 96 02/06/20 02/06/20 02/06/20 03:00 03:59 05:00 Temperature 35.9 C L 36.8 C 36.5 C Heart Rate Heart Rate [ 86 97 91 Monitoring electrodes] Respiratory 24 22 25 H Rate Blood Pressure 125/62 119/62 138/53 H [Left Brachial artery] O2 Saturation 95 02/06/20 02/06/20 06:00 07:00 Temperature 36.6 C 36.6 C Heart Rate Heart Rate [ 98 97 Monitoring electrodes] Respiratory 22 29 H Rate Blood Pressure 121/77 109/82 H [Left Brachial artery] O2 Saturation Oxygen O2 Source [With Activity] Nasal cannula O2 Source Room air I&O (Last 24 Hrs): Intake and Output Totals x24h 02/04/20 02/05/20 02/06/20 23:59 23:59 22:59 Intake Total 350 1340 Output Total 860 795 165 Balance -510 545 -165 General: Other (Lethargic but opens his eyes, nods, answers short questions, is able to pull himself up by the) HEENT: Mucous membr. moist/pink Neck: Supple Neuro: Non Focal, Other (Lethargic) Cardiovascular: Regular rate, No murmurs Respiratory: No respiratory distress, Breath sounds nml Abdomen: Soft - Results Results: Laboratory Results WBC 13.5 x10^3/uL (4.8-10.8) H 02/04/20 05:00 RBC 3.13 10^6/uL (4.70-6.10) L 02/04/20 05:00 Hgb 9.5 g/dL (14.0-18.0) L 02/04/20 05:00 Hct 30.9 % (42.0-52.0) L 02/04/20 05:00 MCV 98.7 fL (80.0-94.0) H 02/04/20 05:00 MCH 30.4 pg (27.0-31.0) 02/04/20 05:00 MCHC 30.7 g/dL (32.0-36.0) L 02/04/20 05:00 RDW 15.4 % (12.0-15.0) H 02/04/20 05:00 Plt Count 378 10^3/uL (130-450) 02/04/20 05:00 MPV 11.0 fL (7.4-11.4) 02/04/20 05:00 Neut # (Auto) 10.4 10^3/uL (1.5-6.6) H 02/04/20 05:00 Lymph # (Auto) 1.5 10^3/uL (1.5-3.5) 02/04/20 05:00 [place] # (Auto) 1.1 10^3/uL (0.0-1.0) H 02/04/20 05:00 Eos # (Auto) 0.2 10^3/uL (0.0-0.7) 02/04/20 05:00 Baso # (Auto) 0.1 10^3/uL (0.0-0.1) 02/04/20 05:00 Absolute Nucleated RBC 0.03 x10^3/uL 02/04/20 05:00 Nucleated RBC % 0.2 /100WBC 02/04/20 05:00 PT 14.8 secs (9.9-12.6) H 01/31/20 04:27 INR 1.3 (0.8-1.2) H 01/31/20 04:27 Anti-Xa Level 0.2 U/mL (-0.7) 02/02/20 04:45 Bld Gas Analysis Time 0501 02/02/20 04:45 Sample Site A-LINE 02/02/20 04:45 ABG pH 7.40 (7.35-7.45) 02/02/20 04:45 ABG pCO2 28 mmHg (34-45) L 02/02/20 04:45 ABG pO2 107 mmHg (80-100) H 02/02/20 04:45 ABG HCO3 17.3 mmol/L (22.0-26.0) L 02/02/20 04:45 ABG Total CO2 18.2 MMOL/L (21.0-29.0) L 02/02/20 04:45 ABG O2 Saturation 97 % (94-98) 02/02/20 04:45 ABG Base Excess -6.4 mmol/L (-2.0-3.0) L 02/02/20 04:45 Cirilo Test NOT APPLICABLE 02/02/20 04:45 VBG pH 7.356 (7.31-7.41) 02/01/20 15:50 VBG pCO2 35.6 mmHg (41-51) L 02/01/20 15:50 VBG pO2 52.9 mmHg (25-47) H 02/01/20 15:50 VBG HCO3 19.5 mmol/L (23-28) L 02/01/20 15:50 VBG Total CO2 20.6 mmol/L (24-29) L 02/01/20 15:50 VBG O2 Saturation 85.6 % (60-80) H 02/01/20 15:50 VBG Base Excess -5.4 mmol/L (-2 - +2) L 02/01/20 15:50 Respiration Rate 16 b/min 02/02/20 04:45 O2 Delivery Device VENTILATOR 02/02/20 04:45 Vent Mode SIMV 02/02/20 04:45 FiO2 0.35 02/02/20 04:45 Tidal Volume 500 mL 02/02/20 04:45 PEEP 5 cmH2O 02/02/20 04:45 Pressure Support Vent 10 cmH2O 02/02/20 04:45 Sodium 146 mmol/L (135-145) H 02/06/20 04:45 Potassium 4.3 mmol/L (3.5-5.0) 02/06/20 04:45 Chloride 111 mmol/L (101-111) 02/06/20 04:45 Carbon Dioxide 21 mmol/L (21-32) 02/06/20 04:45 Anion Gap 14.0 (6-13) H 02/06/20 04:45 BUN 77 mg/dL (6-20) H 02/06/20 04:45 Creatinine 2.1 mg/dL (0.6-1.2) H 02/06/20 04:45 Estimated GFR (MDRD) 31 (>89) L 02/06/20 04:45 Glucose 203 mg/dL (70-100) H 02/06/20 04:45 POC Whole Bld Glucose 187 mg/dL (70 - 100) H 02/06/20 07:44 Estimat Average Glucose 126 mg/dL (70-100) H 01/31/20 04:25 Hemoglobin A1c % 6.0 % (4.27-6.07) 01/31/20 04:25 Calcium 10.1 mg/dL (8.5-10.3) 02/06/20 04:45 Phosphorus 4.2 mg/dL (2.5-4.6) 02/05/20 04:37 Magnesium 2.4 mg/dL (1.7-2.8) 02/05/20 04:37 Total Bilirubin 1.0 mg/dL (0.2-1.0) 01/30/20 12:15 AST 133 IU/L (10-42) H 01/30/20 12:15 ALT 25 IU/L (10-60) 01/30/20 12:15 Alkaline Phosphatase 49 IU/L (42-121) 01/30/20 12:15 Troponin I High Sens 41864.0 ng/L (2.3-19.7) H* 02/01/20 15:27 B-Natriuretic Peptide 3798 pg/mL (5-100) H 02/04/20 05:00 Total Protein 7.0 g/dL (6.7-8.2) 01/30/20 12:15 Albumin 3.7 g/dL (3.2-5.5) 01/30/20 12:15 Globulin 3.3 g/dL (2.1-4.2) 01/30/20 12:15 Albumin/Globulin Ratio 1.1 (1.0-2.2) 01/30/20 12:15 Triglycerides 242 mg/dL (-149) H 02/01/20 04:30 Cholesterol 159 mg/dL (-199) 02/01/20 04:30 LDL Cholesterol, Calc 86 mg/dL (-129) 02/01/20 04:30 VLDL Cholesterol 48 mg/dL 02/01/20 04:30 HDL Cholesterol 25 mg/dL (60-) L 02/01/20 04:30 LDL/HDL Ratio 3.4 (<3.6) 02/01/20 04:30 Cholesterol/HDL Ratio 6.4 (<5.0) 02/01/20 04:30 TSH 0.69 uIU/mL (0.34-5.60) 01/31/20 04:27 Urine Color YELLOW 01/30/20 18:40 Urine Clarity CLEAR (CLEAR) 01/30/20 18:40 Urine pH 5.0 PH (5.0-7.5) 01/30/20 18:40 Ur Specific [place] 1.025 (1.002-1.030) 01/30/20 18:40 Urine Protein NEGATIVE mg/dL (NEGATIVE) 01/30/20 18:40 Urine Glucose (UA) NEGATIVE mg/dL (NEGATIVE) 01/30/20 18:40 Urine Ketones NEGATIVE mg/dL (NEGATIVE) 01/30/20 18:40 Urine Occult Blood TRACE-INTA (NEGATIVE) 01/30/20 18:40 Urine Nitrite NEGATIVE (NEGATIVE) 01/30/20 18:40 Urine Bilirubin NEGATIVE (NEGATIVE) 01/30/20 18:40 Urine Urobilinogen 0.2 (NORMAL) E.U./dL (NORMAL) 01/30/20 18:40 Ur Leukocyte Esterase NEGATIVE (NEGATIVE) 01/30/20 18:40 Ur Microscopic Review NOT INDICATED 01/30/20 18:40 Urine Culture Comments NOT INDICATED 01/30/20 18:40 Nasal Screen MRSA (PCR) NEGATIVE (NEGATIVE) 01/30/20 15:45 Blood Type AB NEGATIVE 01/30/20 13:18 Antibody Screen NEGATIVE 01/30/20 13:18 Crossmatch IS Only See Detail 01/30/20 13:18 - Procedures Procedures: Procedures BLADDER SPHINCTEROTOMY (05/10/13) CYSTOSCOPY NEC (05/10/13) DX ULTRASOUND NEC (05/10/13) EXCISION OF SIGMOID COLON, ENDO (11/15/15) EXCISION OF STOMACH, PYLORUS, ENDO, DIAGN (11/15/15) INSERT INDWELLING CATH (05/10/13) OTH TRANSURETHRAL PROSTATECTOMY (12/14/12) TRANSFUSE NONAUT FROZEN PLASMA IN PERIPH VEIN, PERC (11/15/15) TRANSFUSE NONAUT RED BLOOD CELLS IN PERIPH VEIN, PERC (11/15/15)
[2020-02-06 08:34] LABS: BASOPHILS # (AUTO) 0.1 10^3/uL (0.0-0.1); BASOPHILS % (AUTO) 0.5 %; EOSINOPHILS # (AUTO) 0.1 10^3/uL (0.0-0.7); EOSINOPHILS % (AUTO) 0.6 %; HGB - HEMOGLOBIN 8.8 g/dL (14.0-18.0); LYMPHOCYTES % (AUTO) 8.8 %; MEAN CORPUSCULAR HEMOGLOBIN 30.1 pg (27.0-31.0); MEAN CORPUSCULAR HGB CONC 29.6 g/dL (32.0-36.0); MEAN CORPUSCULAR VOLUME 101.7 fL (80.0-94.0); MEAN PLATELET VOLUME 10.5 fL (7.4-11.4); MONOCYTES % (AUTO) 9.1 %; NEUTROPHILS # (AUTO) 9.1 10^3/uL (1.5-6.6); NEUTROPHILS % (AUTO) 79.5 %; PLT - PLATELET COUNT 318 10^3/uL (130-450); RED BLOOD COUNT 2.92 10^6/uL (4.70-6.10); RED CELL DISTRIBUTION WIDTH 15.6 % (12.0-15.0); WHITE BLOOD COUNT 11.4 x10^3/uL (4.8-10.8)
[2020-02-06] MEDS: INSULIN REGULAR HUMAN 300 UNIT/3 ML VIAL SUBQ SCH ×4 (08:38→20:58)
[2020-02-06] MEDS: SODIUM CHLORIDE FLUSH 0.9% 10 ML SYRINGE IVP SCH ×3 (09:00→21:53)
[2020-02-06] MEDS ORDERED: diphenhydrAMINE 25 MG CAPSULE PO PRN (09:02)
[2020-02-06] MEDS: ASPIRIN CHEW 81 MG TABLET NG SCH (09:03)
[2020-02-06] MEDS: METOPROLOL SUCCINATE 25 MG TABLET PO SCH ×2 (09:07→18:28)
[2020-02-06] MEDS: CHOLECALCIFEROL 400 UNIT TABLET PO SCH ×2 (09:07→20:52)
[2020-02-06] MEDS: TAMSULOSIN 0.4 MG CAPSULE PO SCH (09:07)
[2020-02-06] MEDS: CALCIUM CARB (OYSTER SHELL) 500 MG TABLET PO SCH ×2 (09:07→20:52)
[2020-02-06] MEDS: polyethylene glycoL 3350 17 GM PACKET PO SCH (09:16)
[2020-02-06] MEDS: INSULIN GLARGINE 300 UNIT/3 ML PEN SUBQ SCH (09:18)
[2020-02-06] MEDS: DEXTROSE 5% 1,000 ML IV SCH ×2 (09:30→21:51)
[2020-02-06] MEDS: ZINC OXIDE 20% OINT 30 GM TUBE TOP PRN (11:55)
[2020-02-06] MEDS: SODIUM CHLORIDE FLUSH 0.9% 10 ML SYRINGE IVP PRN (14:41)
[2020-02-06 14:42] LABS: CALCIUM 10.2 mg/dL (8.5-10.3)
[2020-02-06] MEDS: MORPHINE 2 MG/ML CARPUJECT IVP PRN (15:20)
[2020-02-06] MEDS ORDERED: diphenhydrAMINE ELIXIR 25 MG/10 ML UDC PO PRN (17:18)
[2020-02-06] MEDS: ATORVASTATIN 40 MG TABLET PO SCH (20:52)
[2020-02-06] MEDS: SERTRALINE 50 MG TABLET PO SCH (20:52)
[2020-02-07] MEDS: MORPHINE 2 MG/ML CARPUJECT IVP PRN (04:05)
[2020-02-07] MEDS: SODIUM CHLORIDE FLUSH 0.9% 10 ML SYRINGE IVP PRN (04:43)
[2020-02-07 05:16] LABS: CALCIUM 10.3 mg/dL (8.5-10.3); CREATININE 2.1 mg/dL (0.6-1.2)
[2020-02-07] MEDS: polyethylene glycoL 3350 17 GM PACKET PO SCH (08:29)
[2020-02-07] MEDS: CALCIUM CARB (OYSTER SHELL) 500 MG TABLET PO SCH (10:32)
[2020-02-07] MEDS: CHOLECALCIFEROL 400 UNIT TABLET PO SCH (10:36)
[2020-02-07] MEDS: METOPROLOL SUCCINATE 25 MG TABLET PO SCH (10:36)
[2020-02-07] MEDS: INSULIN GLARGINE 300 UNIT/3 ML PEN SUBQ SCH (10:52)
[2020-02-07] MEDS: INSULIN REGULAR HUMAN 300 UNIT/3 ML VIAL SUBQ SCH ×4 (10:53→21:45)
[2020-02-07] MEDS: SODIUM CHLORIDE FLUSH 0.9% 10 ML SYRINGE IVP SCH ×2 (10:53→20:04)
--- NOTE | 2020-02-07 11:45 | PROVIDER PROGRESS NOTE ---
Assessment/Plan - Problem List (1) Junctional bradycardia Assessment/Plan: This morning his HR dropped to 48 and telemetry showed no P waves. An EKG was obtained that confirmed he went into a new junctional rhythm. This was before any morning Metoprolol was given. With this new rhythm, his BP dropped to 88 systolic. The rhythm recovered to NSR and BP improved to 108 systolic after about an hour. (2) Acute kidney injury superimposed on CKD Assessment/Plan: His creatinine remains elevated at 2.1. He is no longer getting saline but D5W because of yesterday's hypernatremia. His blood pressure today is low, 70-110 systolic. This combination along with junctional bradycardia bodes a poor prognosis. This was discussed with the family. Continue medical management, they are deciding if they want to have a Hospice evaluation (3) Generalized weakness Assessment/Plan: This is worsening the past 2 days. It was presumed to be due to insomnia (no sustaine sleep for 4 days after coming off the vent), and from his uremia. PT and OT were put on hold yesterday. Tpday will cancel PT and OT since he has the new bradydysrhythmia and may be having another CO. I spoke to both the cousin MICHELRae and the co-MICHEL, Rae's daughter (who arrived this morning from [place] to stay at bedside when her mother leaves later today), and updated them both on his condition. They want full medical management, other than the already discussed no transfers to facilities with higher level of care. Remain in ICU. (4) Insomnia Assessment/Plan: After coming off of the ventilator, he was up 24/7 for about 4 days, today is the first day he is sleeping. He probably has a reversed sleep awake cycle, was awake all night, is now sleeping soundly during the day (5) COPD (chronic obstructive pulmonary disease) Assessment/Plan: He had some wheezing 2 days ago. He is now ordered to get nebs, his dyspnea has improved. He still needs supplemental oxygen (which he takes off because it is uncomfortable) (6) Acute CO Assessment/Plan: At admission, his troponin was greater than 21,000. His EKG had shown a left bundle branch block which is an old finding. He is ordered to get aspirin, statin, beta-blockers. No transfer for cardiac intervention was already decided on day 1, by the MICHEL. (7) Cardiomyopathy Qualifiers: Cardiomyopathy type: ischemic Qualified Code(s): I25.5 - Ischemic cardiomyopathy Assessment/Plan: As above. He did have CHF which has now resolved. The Lasix was stopped because of producing JUANA. Because of the high creatinine, no GUSTAVO inhibitor or spironolactone have been started. Today his blood pressure is low and even his beta-pearl was on hold this morning. This low EF and low BP was discussed with the family today and that it bodes a very poor prognosis. (8) Vascular dementia with behavior disturbance Assessment/Plan: A cognitive eval was done 2 days ago at bedside, and the cousin MICHEL witnessed that. He did very porly upon questioning. CT of the head was done which confirmed vascular dementia. Before this admission, the family noticed that he was "swearing all the time" which the PCP thought was related to depression. 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 (9) Diabetes mellitus with insulin therapy Assessment/Plan: Continue with sliding scale insulin coverage for diabetic diet, pure as per the speech therapist swallow eval (10) Anemia Qualifiers: Other causes of anemia: acute posthemorrhagic Assessment/Plan: Female hemoglobin since admission at about 9.5. He is on his iron replacement when he can swallow (11) BPH (benign prostatic hyperplasia) Assessment/Plan: Flomax was resumed 2 days ago, when he was able to swallow. The Gomez was planned to be removed however because of today's worsening status, will leave in the Gomez (12) On mechanically assisted ventilation Assessment/Plan: Resolved (13) Cardiogenic shock Assessment/Plan: Resolved (14) Epistaxis Assessment/Plan: Resolved (15) Acute systolic heart failure Assessment/Plan: Pulmonary edema has resolved by clinical exam and by chest x-ray done several days ago. The Lasix was therefore stopped because it put him into JUANA (16) Community acquired pneumonia Assessment/Plan: Resolved, he completed a course of antibiotics since admission (17) Hypernatremia Assessment/Plan: Resolved w/ iv's changed to free water yesterday (D5W) - Current Meds Current Meds: Current Medications Generic Name Dose Route Start Last Admin Trade Name Freq PRN Reason Stop Dose Admin Acetaminophen 650 mg 10/27/20 15:24 02/04/20 23:52 Tylenol AK 650 mg Q6HR PRN Administration Pain or Fever > 38C (100.4F) Aspirin 81 mg 02/02/20 09:00 02/06/20 09:03 [facility] Aspirin NG 81 mg DAILY JOHANNY Administration Atorvastatin Calcium 40 mg 02/02/20 21:00 02/06/20 20:52 Lipitor PO 40 mg QPM JOHANNY Administration Calcium Carbonate/Glycine 500 mg 02/05/20 21:00 02/07/20 10:32 Oysco-500 PO Not Given BID [facility] Cholecalciferol 400 unit 02/05/20 21:00 02/07/20 10:36 Vitamin D3 PO Not Given BID [facility] Ferrous Sulfate 325 mg 02/05/20 12:00 02/05/20 12:28 Feosol PO 325 mg Q48H JOHANNY Administration Insulin Human Regular 2 - 10 unit 02/06/20 15:15 02/07/20 10:53 Humulin R SUBQ 4 unit 0800,1200,1700,2100 [facility] Administration Protocol Multi-Ingredient Ointment 1 applic 01/31/20 23:33 02/06/20 11:55 Zinc Oxide TOP 1 applic PRN PRN Administration Skin Care Ondansetron HCl 4 mg 01/30/20 16:19 02/05/20 17:11 Zofran Inj IVP 4 mg Q6HR PRN Administration Nausea / Vomiting Polyethylene Glycol 17 gm 02/03/20 09:00 02/07/20 08:29 Miralax PO Not Given DAILY [facility] Sertraline HCl 50 mg 02/05/20 21:00 02/06/20 20:52 Zoloft PO 50 mg QPM JOHANNY Administration Sodium Chloride 10 ml 01/30/20 17:00 02/07/20 10:53 Normal Saline Flush 0.9% IVP 10 ml 0100,0900,1700 JOHANNY Administration Sodium Chloride 10 ml 01/30/20 16:19 02/07/20 04:43 Normal Saline Flush 0.9% IVP 20 ml PRN PRN Administration NEEDED PER PROVIDER ORDERS Tamsulosin HCl 0.4 mg 02/05/20 09:00 02/06/20 09:07 Flomax PO 0.4 mg DAILY JOHANNY Administration - Lab Result Fish Bone Diagrams: 02/06/20 08:19 02/07/20 04:40 - EKG Results EKG Interpreted Independently: Yes EKG Comparison: Changed from prior EKG EKG Findings: Junctional rhythm, rate 51, left bundle branch block. Since the previous EKG, junctional rhythm is new, LBBB is old. - Additional Planning My Orders: My Active Orders 02/06/20 15:15 Insulin Regular Human [Humulin R] 2 - 10 unit SUBQ 0800,1200,1700,2100 02/06/20 17:04 Vital Signs- Do Not Awaken For [RC] HS 02/07/20 12:00 Dextrose 5% [D5w] 1,000 ml IV 83.333 mls/hr Insulin Glargine [Lantus Solostar] 8 unit SUBQ DAILY Subjective - Subjective Patient Reports: Other (Deeply asleep) Nursing Reports: Other (He was up all night again and just fell asleep about 0600) Objective Vital Signs: Vital Signs - 24 hr 02/06/20 02/06/20 02/06/20 12:00 13:00 14:00 Temperature 36.8 C 36.9 C 36.9 C Heart Rate [ 91 89 90 Monitoring electrodes] Respiratory 21 24 26 H Rate Blood Pressure 114/87 H 114/57 L 125/71 [Left Brachial artery] O2 Saturation 94 95 96 02/06/20 02/06/20 02/06/20 15:00 16:00 17:00 Temperature 36.9 C 37.0 C Heart Rate [ 91 89 81 Monitoring electrodes] Respiratory 23 22 22 Rate Blood Pressure 123/51 L 97/65 100/55 L [Left Brachial artery] O2 Saturation 96 94 02/06/20 02/06/20 02/06/20 18:00 19:00 20:00 Temperature 36.7 C 37.2 C Heart Rate [ 89 87 95 Monitoring electrodes] Respiratory 27 H 16 29 H Rate Blood Pressure 108/63 111/69 129/88 H [Left Brachial artery] O2 Saturation 94 98 97 02/06/20 02/06/20 02/06/20 21:00 22:00 23:00 Temperature Heart Rate [ 90 90 91 Monitoring electrodes] Respiratory 23 28 H 25 H Rate Blood Pressure 111/62 123/68 112/92 H [Left Brachial artery] O2 Saturation 97 02/07/20 02/07/20 02/07/20 00:00 01:00 02:00 Temperature 37.2 C Heart Rate [ 90 88 91 Monitoring electrodes] Respiratory 27 H 29 H 21 Rate Blood Pressure 125/78 111/73 121/59 L [Left Brachial artery] O2 Saturation 92 02/07/20 02/07/20 02/07/20 03:00 04:00 05:00 Temperature 37.2 C Heart Rate [ 81 85 85 Monitoring electrodes] Respiratory 23 20 21 Rate Blood Pressure 115/61 120/62 119/54 L [Left Brachial artery] O2 Saturation 95 02/07/20 02/07/20 02/07/20 06:00 07:00 08:00 Temperature 37 C Heart Rate [ 81 78 74 Monitoring electrodes] Respiratory 20 25 H 21 Rate Blood Pressure 103/76 102/77 111/56 L [Left Brachial artery] O2 Saturation 95 02/07/20 02/07/20 02/07/20 09:00 09:20 10:00 Temperature 37 C 36.7 C Heart Rate [ 69 50 L 53 L Monitoring electrodes] Respiratory 21 20 Rate Blood Pressure 96/55 L 83/40 L 83/57 L [Left Brachial artery] O2 Saturation 96 96 02/07/20 10:42 Temperature Heart Rate [ 80 Monitoring electrodes] Respiratory Rate Blood Pressure 112/78 [Left Brachial artery] O2 Saturation Oxygen O2 Source [With Activity] Nasal cannula O2 Source Nasal cannula I&O (Last 24 Hrs): Intake and Output Totals x24h 02/06/20 02/06/20 02/07/20 00:59 23:59 23:59 Intake Total 1120 Output Total 304 Balance 816 General: Other (sleepy but awakens, swallows pureed food, needs to be fed) HEENT: PERRLA, EOMI Neck: Supple, No JVD Neuro: Other (Lethargic, no myoclonus) Cardiovascular: No murmurs Respiratory: No respiratory distress, Breath sounds nml Abdomen: Soft Extremities: No edema - Results Results: Laboratory Results WBC 11.4 x10^3/uL (4.8-10.8) H 02/06/20 08:19 RBC 2.92 10^6/uL (4.70-6.10) L 02/06/20 08:19 Hgb 8.8 g/dL (14.0-18.0) L 02/06/20 08:19 Hct 29.7 % (42.0-52.0) L 02/06/20 08:19 MCV 101.7 fL (80.0-94.0) H 02/06/20 08:19 MCH 30.1 pg (27.0-31.0) 02/06/20 08:19 MCHC 29.6 g/dL (32.0-36.0) L 02/06/20 08:19 RDW 15.6 % (12.0-15.0) H 02/06/20 08:19 Plt Count 318 10^3/uL (130-450) 02/06/20 08:19 MPV 10.5 fL (7.4-11.4) 02/06/20 08:19 Neut # (Auto) 9.1 10^3/uL (1.5-6.6) H 02/06/20 08:19 Lymph # (Auto) 1.0 10^3/uL (1.5-3.5) L 02/06/20 08:19 [place] # (Auto) 1.0 10^3/uL (0.0-1.0) 02/06/20 08:19 Eos # (Auto) 0.1 10^3/uL (0.0-0.7) 02/06/20 08:19 Baso # (Auto) 0.1 10^3/uL (0.0-0.1) 02/06/20 08:19 Absolute Nucleated RBC 0.11 x10^3/uL 02/06/20 08: Nucleated RBC % 1.0 /100WBC 02/06/20 08:19 PT 14.8 secs (9.9-12.6) H 01/31/20 04:27 INR 1.3 (0.8-1.2) H 01/31/20 04:27 Anti-Xa Level 0.2 U/mL (-0.7) 02/02/20 04:45 Bld Gas Analysis Time 0501 02/02/20 04:45 Sample Site A-LINE 02/02/20 04:45 ABG pH 7.40 (7.35-7.45) 02/02/20 04:45 ABG pCO2 28 mmHg (34-45) L 02/02/20 04:45 ABG pO2 107 mmHg (80-100) H 02/02/20 04:45 ABG HCO3 17.3 mmol/L (22.0-26.0) L 02/02/20 04:45 ABG Total CO2 18.2 MMOL/L (21.0-29.0) L 02/02/20 04:45 ABG O2 Saturation 97 % (94-98) 02/02/20 04:45 ABG Base Excess -6.4 mmol/L (-2.0-3.0) L 02/02/20 04:45 Cirilo Test NOT APPLICABLE 02/02/20 04:45 VBG pH 7.356 (7.31-7.41) 02/01/20 15:50 VBG pCO2 35.6 mmHg (41-51) L 02/01/20 15:50 VBG pO2 52.9 mmHg (25-47) H 02/01/20 15:50 VBG HCO3 19.5 mmol/L (23-28) L 02/01/20 15:50 VBG Total CO2 20.6 mmol/L (24-29) L 02/01/20 15:50 VBG O2 Saturation 85.6 % (60-80) H 02/01/20 15:50 VBG Base Excess -5.4 mmol/L (-2 - +2) L 02/01/20 15:50 Respiration Rate 16 b/min 02/02/20 04:45 O2 Delivery Device VENTILATOR 02/02/20 04:45 Vent Mode SIMV 02/02/20 04:45 FiO2 0.35 02/02/20 04:45 Tidal Volume 500 mL 02/02/20 04:45 PEEP 5 cmH2O 02/02/20 04:45 Pressure Support Vent 10 cmH2O 02/02/20 04:45 Sodium 142 mmol/L (135-145) 02/07/20 04:40 Potassium 4.6 mmol/L (3.5-5.0) 02/07/20 04:40 Chloride 109 mmol/L (101-111) 02/07/20 04:40 Carbon Dioxide 23 mmol/L (21-32) 02/07/20 04:40 Anion Gap 10.0 (6-13) 02/07/20 04:40 BUN 80 mg/dL (6-20) H* 02/07/20 04:40 Creatinine 2.1 mg/dL (0.6-1.2) H 02/07/20 04:40 Estimated GFR (MDRD) 31 (>89) L 02/07/20 04:40 Glucose 203 mg/dL (70-100) H 02/07/20 04:40 POC Whole Bld Glucose 199 mg/dL (70 - 100) H 02/07/20 10:45 Estimat Average Glucose 126 mg/dL (70-100) H 01/31/20 04:25 Hemoglobin A1c % 6.0 % (4.27-6.07) 01/31/20 04:25 Calcium 10.3 mg/dL (8.5-10.3) 02/07/20 04:40 Phosphorus 4.2 mg/dL (2.5-4.6) 02/05/20 04:37 Magnesium 2.4 mg/dL (1.7-2.8) 02/05/20 04:37 Total Bilirubin 1.0 mg/dL (0.2-1.0) 01/30/20 12:15 AST 133 IU/L (10-42) H 01/30/20 12:15 ALT 25 IU/L (10-60) 01/30/20 12:15 Alkaline Phosphatase 49 IU/L (42-121) 01/30/20 12:15 Troponin I High Sens 24890.0 ng/L (2.3-19.7) H* 02/01/20 15:27 B-Natriuretic Peptide 3798 pg/mL (5-100) H 02/04/20 05:00 Total Protein 7.0 g/dL (6.7-8.2) 01/30/20 12:15 Albumin 3.7 g/dL (3.2-5.5) 01/30/20 12:15 Globulin 3.3 g/dL (2.1-4.2) 01/30/20 12:15 Albumin/Globulin Ratio 1.1 (1.0-2.2) 01/30/20 12:15 Triglycerides 242 mg/dL (-149) H 02/01/20 04:30 Cholesterol 159 mg/dL (-199) 02/01/20 04:30 LDL Cholesterol, Calc 86 mg/dL (-129) 02/01/20 04:30 VLDL Cholesterol 48 mg/dL 02/01/20 04:30 HDL Cholesterol 25 mg/dL (60-) L 02/01/20 04:30 LDL/HDL Ratio 3.4 (<3.6) 02/01/20 04:30 Cholesterol/HDL Ratio 6.4 (<5.0) 02/01/20 04:30 TSH 0.69 uIU/mL (0.34-5.60) 01/31/20 04:27 Urine Color YELLOW 01/30/20 18:40 Urine Clarity CLEAR (CLEAR) 01/30/20 18:40 Urine pH 5.0 PH (5.0-7.5) 01/30/20 18:40 Ur Specific Mercedes 1.025 (1.002-1.030) 01/30/20 18:40 Urine Protein NEGATIVE mg/dL (NEGATIVE) 01/30/20 18:40 Urine Glucose (UA) NEGATIVE mg/dL (NEGATIVE) 01/30/20 18:40 Urine Ketones NEGATIVE mg/dL (NEGATIVE) 01/30/20 18:40 Urine Occult Blood TRACE-INTA (NEGATIVE) 01/30/20 18:40 Urine Nitrite NEGATIVE (NEGATIVE) 01/30/20 18:40 Urine Bilirubin NEGATIVE (NEGATIVE) 01/30/20 18:40 Urine Urobilinogen 0.2 (NORMAL) E.U./dL (NORMAL) 01/30/20 18:40 Ur Leukocyte Esterase NEGATIVE (NEGATIVE) 01/30/20 18:40 Ur Microscopic Review NOT INDICATED 01/30/20 18:40 Urine Culture Comments NOT INDICATED 01/30/20 18:40 Nasal Screen MRSA (PCR) NEGATIVE (NEGATIVE) 01/30/20 15:45 Blood Type AB NEGATIVE 01/30/20 13:18 Antibody Screen NEGATIVE 01/30/20 13:18 Crossmatch IS Only See Detail 01/30/20 13:18 - Procedures Procedures: Procedures BLADDER SPHINCTEROTOMY (05/10/13) CYSTOSCOPY NEC (05/10/13) DX ULTRASOUND NEC (05/10/13) EXCISION OF SIGMOID COLON, ENDO (11/15/15) EXCISION OF STOMACH, PYLORUS, ENDO, DIAGN (11/15/15) INSERT INDWELLING CATH (05/10/13) OTH TRANSURETHRAL PROSTATECTOMY (12/14/12) TRANSFUSE NONAUT FROZEN PLASMA IN PERIPH VEIN, PERC (11/15/15) TRANSFUSE NONAUT RED BLOOD CELLS IN PERIPH VEIN, PERC (11/15/15)
--- NOTE | 2020-02-07 11:54 | ADVANCE CARE PLANNING NOTE ---
Advance Care Planning - Planning Encounter Date: 02/07/20 Time: 10:20 Purpose: To update both DPOA's about his progress. To determine how aggressive the care should be. Parties in Attendance: I spoke to the 2 DPOA's in his room at his bedside then we exited and spoke outside his room. Decisional Capacity of the Patient: He is obtunded and lethargic, more uremic, and does not awaken long enough to carry on a conversation. He also has underlying the dementia, diagnosed this admission. He cannot make medical decisions for himself. - Diagnosis for Encounter (1) Junctional bradycardia Summary: This is a new dysrhythmia as of today. It may be a sign of his RI extending itself, or a new RI. (2) Acute RI Summary: His admission EKG showed LBBB, which was an old finding. His troponin was > 21,000. The massive RI was felt to be the cause of the admission hypotension (BP was 60/40) and not GI bleeding. (3) Acute systolic heart failure Summary: LVEF is 20% and he was in CHF, the pulmonary edema has improved. (4) Acute kidney injury superimposed on CKD Summary: He developed JUANA over the past few days, as he was needing iv diuretics to treat CHF. (5) Generalized weakness Summary: Multifactorial. (6) Vascular dementia with behavior disturbance Summary: As per clinical evaluation this admission, and head CT done several days ago showing microvascular changes with loss of brain volume. - Encounter Subjective/Patient's Story: This was previously outlined, on the last ACP which I did several days ago. Objective/Medical Story: I spoke to both the cousin DPOARae, and the co-DPOA, Rae's daughter (who arrived this morning from [place], to stay at bedside when her mother leaves later today), and updated them both on his condition and all his diagnoses, especially the new rhythm of junctional bradycardia. This may be an extension of his RI. His mental status is worsening, likely due to weakness, ICU stay, flipped day/night cycle and also uremia. He will not have PT or OT. Goals of Care: They want him to be comfortable, to stay on [facility] because he loves it here, to continue with medical management that is appropriate for him, not to withdraw treatment or start comfort measures (yet). Plan: Will provide aggressive medical management, remain in the ICU, no transfers to facilities with higher level of care. Code Status: Do Not Attempt Resuscitation Time spent on advance care plannin min
[2020-02-07] MEDS ORDERED: DEXTROSE 5% 1,000 ML IV SCH (12:00)
[2020-02-07] MEDS ORDERED: INSULIN GLARGINE 300 UNIT/3 ML PEN SUBQ SCH (12:00)
[2020-02-07] MEDS: ASPIRIN CHEW 81 MG TABLET NG SCH ×2 (12:22→14:08)
[2020-02-07] MEDS: TAMSULOSIN 0.4 MG CAPSULE PO SCH ×2 (12:22→14:11)
[2020-02-07] MEDS: FERROUS SULFATE 325 MG TABLET PO SCH (14:11)
[2020-02-07] MEDS ORDERED: LOPERAMIDE 2 MG CAPSULE PO PRN (16:54)
[2020-02-07] MEDS ORDERED: MORPHINE 2 MG/ML CARPUJECT IVP PRN (16:54)
[2020-02-07] MEDS ORDERED: CARBOXYMETHYLCELLULOSE OPHTH DROPS EACHEYE PRN (16:54)
[2020-02-07] MEDS: DEXTROSE 5% 1,000 ML IV SCH (18:05)
[2020-02-07] MEDS: SERTRALINE 50 MG TABLET PO SCH (21:45)
[2020-02-08] MEDS: SODIUM CHLORIDE FLUSH 0.9% 10 ML SYRINGE IVP SCH ×4 (05:10→21:09)
[2020-02-08 05:31] LABS: BASOPHILS # (AUTO) 0.1 10^3/uL (0.0-0.1); BASOPHILS % (AUTO) 0.4 %; EOSINOPHILS # (AUTO) 0.2 10^3/uL (0.0-0.7); HGB - HEMOGLOBIN 8.6 g/dL (14.0-18.0); LYMPHOCYTES % (AUTO) 8.7 %; MEAN CORPUSCULAR HEMOGLOBIN 29.1 pg (27.0-31.0); MEAN CORPUSCULAR HGB CONC 28.8 g/dL (32.0-36.0); MEAN PLATELET VOLUME 10.3 fL (7.4-11.4); MONOCYTES # (AUTO) 0.9 10^3/uL (0.0-1.0); MONOCYTES % (AUTO) 7.2 %; NEUTROPHILS # (AUTO) 9.5 10^3/uL (1.5-6.6); NEUTROPHILS % (AUTO) 80.5 %; PLT - PLATELET COUNT 302 10^3/uL (130-450); RED BLOOD COUNT 2.96 10^6/uL (4.70-6.10); RED CELL DISTRIBUTION WIDTH 15.3 % (12.0-15.0); WHITE BLOOD COUNT 11.8 x10^3/uL (4.8-10.8)
[2020-02-08 05:43] LABS: ALBUMIN 3.1 g/dL (3.2-5.5); ALBUMIN/GLOBULIN RATIO 0.8 (1.0-2.2); BILIRUBIN,TOTAL 0.8 mg/dL (0.2-1.0); CALCIUM 10.3 mg/dL (8.5-10.3); CREATININE 2.1 mg/dL (0.6-1.2); TOTAL PROTEIN 6.8 g/dL (6.7-8.2)
[2020-02-08 05:57] LABS: PLATELET ESTIMATE, MANUAL NORMAL (130-450,000) (NORMAL); PLATELET MORPHOLOGY NORMAL APPEARANCE (NORMAL); RBC MORPHOLOGY (MULTIPLE) 2+ HYPOCHROMASIA (NORMAL)
[2020-02-08] MEDS: DEXTROSE 5% 1,000 ML IV SCH (07:40)
[2020-02-08] MEDS: polyethylene glycoL 3350 17 GM PACKET PO SCH (07:41)
[2020-02-08] MEDS: METOPROLOL SUCCINATE 25 MG TABLET PO SCH (07:51)
[2020-02-08] MEDS: TAMSULOSIN 0.4 MG CAPSULE PO SCH (10:31)
[2020-02-08] MEDS: ASPIRIN CHEW 81 MG TABLET NG SCH (10:31)
[2020-02-08] MEDS: INSULIN GLARGINE 300 UNIT/3 ML PEN SUBQ SCH (10:32)
[2020-02-08] MEDS: INSULIN REGULAR HUMAN 300 UNIT/3 ML VIAL SUBQ SCH ×4 (10:33→21:08)
--- NOTE | 2020-02-08 15:35 | PROVIDER PROGRESS NOTE ---
Assessment/Plan - Problem List (1) Junctional bradycardia Assessment/Plan: He continues to have this on and off. The beta-pearl dose was stopped after this began yesterday. No aggressive management is planned, no pacemaker, no transfer. Because of this complication, he was seen by hospice yesterday and will be discharged with medical management and overall comfort is the goal. Sometime in the upcoming week he will be accepted on the hospice service. (2) Acute kidney injury superimposed on CKD Assessment/Plan: Abnormal but stable. We will stop ordering labs. (3) Generalized weakness Assessment/Plan: Generalized weakness continues, no physical therapy is planned. Discharge to memory care center with nursing care as planned (4) COPD (chronic obstructive pulmonary disease) Assessment/Plan: Possibly mild exacerbation at mid hospitalization. Nebs are ordered. (5) Acute IN Assessment/Plan: He had a huge IN at the beginning of hospitalization which led to the cardiogenic shock which she has now recovered from (6) Cardiomyopathy Qualifiers: Cardiomyopathy type: ischemic Qualified Code(s): I25.5 - Ischemic cardiomyopathy Assessment/Plan: Will treat with beta-pearl if heart rate will allow, Lasix as needed (7) Vascular dementia with behavior disturbance Assessment/Plan: Documented here during this hospitalization. (8) Diabetes mellitus with insulin therapy Assessment/Plan: He tolerates a minimal amount of pured diet. (9) Anemia Qualifiers: Other causes of anemia: acute posthemorrhagic Assessment/Plan: Stable. (10) BPH (benign prostatic hyperplasia) Assessment/Plan: He is ordered to get his prostate meds but because of his poor condition, the Gomez catheter will continue as he will be accepted into hospice in several days (11) On mechanically assisted ventilation Assessment/Plan: Completed, Extubated many days ago (12) Cardiogenic shock Assessment/Plan: Resolved. (13) Epistaxis Assessment/Plan: Resolved many days ago. (14) Acute systolic heart failure Assessment/Plan: Resolved, he is not currently in volume overload, not tachypneic (15) Community acquired pneumonia Assessment/Plan: He completed treatment while hospitalized here. (16) Hypernatremia Assessment/Plan: Resolved. (17) Insomnia Assessment/Plan: Resolved. - Current Meds Current Meds: Current Medications Generic Name Dose Route Start Last Admin Trade Name Freq PRN Reason Stop Dose Admin Acetaminophen 650 mg 02/01/20 15:24 02/04/20 23:52 Tylenol [place] 650 mg Q6HR PRN Administration Pain or Fever > 38C (100.4F) Aspirin 81 mg 02/02/20 09:00 02/08/20 10:31 [facility] [place] Aspirin NG 81 mg DAILY JOHANNY Administration Ferrous Sulfate 325 mg 02/05/20 12:00 02/07/20 14:11 Feosol PO Not Given Q48H JOHANNY Dextrose 1,000 mls @ 50 mls/hr 02/07/20 16:59 02/08/20 07:40 D5w IV 50 mls/hr .Q20H JOHANNY Administration Insulin Glargine 6 unit 02/08/20 09:00 02/08/20 10:32 Lantus Solostar SUBQ 6 unit DAILY JOHANNY Administration Insulin Human Regular 2 - 10 unit 02/06/20 15:15 02/08/20 12:09 Humulin R SUBQ 6 unit 0800,1200,1700,2100 JOHANNY Administration Protocol Metoprolol Succinate 12.5 mg 02/08/20 09:00 02/08/20 07:51 Toprol Xl PO Not Given DAILY [facility] Morphine Sulfate 2 mg 02/07/20 16:54 02/08/20 14:53 Morphine (Carpuject) IVP 2 mg Q2HR PRN Administration Pain or Shortness of air Multi-Ingredient Ointment 1 applic 01/31/20 23:33 02/06/20 11:55 Zinc Oxide TOP 1 applic PRN PRN Administration Skin Care Ondansetron HCl 4 mg 01/30/20 16:19 02/05/20 17:11 Zofran Inj IVP 4 mg Q6HR PRN Administration Nausea / Vomiting Polyethylene Glycol 17 gm 02/03/20 09:00 02/08/20 07:41 Miralax PO Not Given DAILY JOHANNY Sertraline HCl 50 mg 02/05/20 21:00 02/07/20 21:45 Zoloft PO 50 mg QPM JOHANNY Administration Sodium Chloride 10 ml 01/30/20 17:00 02/08/20 10:52 Normal Saline Flush 0.9% IVP Not Given 0100,0900,1700 JOHANNY Sodium Chloride 10 ml 01/30/20 16:19 02/07/20 04:43 Normal Saline Flush 0.9% IVP 20 ml PRN PRN Administration NEEDED PER PROVIDER ORDERS Tamsulosin HCl 0.4 mg 02/05/20 09:00 02/08/20 10:31 Flomax PO 0.4 mg DAILY JOHANNY Administration - Lab Result Fish Bone Diagrams: 02/08/20 05:10 02/08/20 05:10 - Additional Planning My Orders: My Active Orders 02/07/20 16:54 Comfort Care [RC] QSHIFT Cooling Unit [RC] PRN Turn and Reposition [RC] PRN Warming Unit [RC] PRN Carboxymethylcellulose 1% Opht [Refresh 1% Ophth Drops] 1 drops EACHEYE QID PRN Loperamide [Imodium] 2 mg PO Q2H PRN Morphine Inj (Carpuject) [Morphine (Carpuject)] 2 mg IVP Q2HR PRN 02/07/20 16:59 Dextrose 5% [D5w] 1,000 ml IV 50 mls/hr 02/08/20 09:00 Insulin Glargine [Lantus Solostar] 6 unit SUBQ DAILY Metoprolol Succinate [Toprol Xl] 12.5 mg PO DAILY 02/08/20 10:43 Vital Signs [RC] DAILY 02/08/20 15:15 COVID-19 [facility] Urgent Subjective - Subjective Patient Reports: Resting Comfortably Objective Vital Signs: Vital Signs - 24 hr 02/08/20 07:49 Temperature 36.9 C Heart Rate [ 58 L Monitoring electrodes] Respiratory 20 Rate Blood Pressure 105/65 [Left Brachial artery] O2 Saturation 94 Oxygen O2 Source [With Activity] Nasal cannula O2 Source Nasal cannula I&O (Last 24 Hrs): Intake and Output Totals x24h 02/06/20 02/07/20 02/08/20 23:59 23:59 23:59 Intake Total 1654 919.167 Output Total 464 170 Balance 1190 749.167 General: Alert HEENT: Mucous membr. moist/pink Neck: Supple, No JVD Neuro: Alert (Sat up in a chair after being transferred there by a left), Disoriented Cardiovascular: Regular rate Respiratory: No respiratory distress Abdomen: Soft Extremities: No edema - Results Results: Laboratory Results WBC 11.8 x10^3/uL (4.8-10.8) H 02/08/20 05:10 RBC 2.96 10^6/uL (4.70-6.10) L 02/08/20 05:10 Hgb 8.6 g/dL (14.0-18.0) L 02/08/20 05:10 Hct 29.9 % (42.0-52.0) L 02/08/20 05:10 MCV 101.0 fL (80.0-94.0) H 02/08/20 05:10 MCH 29.1 pg (27.0-31.0) 02/08/20 05:10 MCHC 28.8 g/dL (32.0-36.0) L 02/08/20 05:10 RDW 15.3 % (12.0-15.0) H 02/08/20 05:10 Plt Count 302 10^3/uL (130-450) 02/08/20 05:10 MPV 10.3 fL (7.4-11.4) 02/08/20 05:10 Neut # (Auto) 9.5 10^3/uL (1.5-6.6) H 02/08/20 05:10 Lymph # (Auto) 1.0 10^3/uL (1.5-3.5) L 02/08/20 05:10 [place] # (Auto) 0.9 10^3/uL (0.0-1.0) 02/08/20 05:10 Eos # (Auto) 0.2 10^3/uL (0.0-0.7) 02/08/20 05:10 Baso # (Auto) 0.1 10^3/uL (0.0-0.1) 02/08/20 05:10 Absolute Nucleated RBC 0.08 x10^3/uL 02/08/20 05:10 Nucleated RBC % 0.7 /100WBC 02/08/20 05:10 Manual Slide Review Indicated 02/08/20 05:10 Platelet Estimate NORMAL (130-450,000) (NORMAL) 02/08/20 05:10 Platelet Morphology NORMAL APPEARANCE (NORMAL) 02/08/20 05:10 RBC Morph Micro Appear 2+ HYPOCHROMASIA (NORMAL) 02/08/20 05:10 PT 14.8 secs (9.9-12.6) H 01/31/20 04:27 INR 1.3 (0.8-1.2) H 01/31/20 04:27 Anti-Xa Level 0.2 U/mL (-0.7) 02/02/20 04:45 Bld Gas Analysis Time 0501 02/02/20 04:45 Sample Site A-LINE 02/02/20 04:45 ABG pH 7.40 (7.35-7.45) 02/02/20 04:45 ABG pCO2 28 mmHg (34-45) L 02/02/20 04:45 ABG pO2 107 mmHg (80-100) H 02/02/20 04:45 ABG HCO3 17.3 mmol/L (22.0-26.0) L 02/02/20 04:45 ABG Total CO2 18.2 MMOL/L (21.0-29.0) L 02/02/20 04:45 ABG O2 Saturation 97 % (94-98) 02/02/20 04:45 ABG Base Excess -6.4 mmol/L (-2.0-3.0) L 02/02/20 04:45 Cirilo Test NOT APPLICABLE 02/02/20 04:45 VBG pH 7.356 (7.31-7.41) 02/01/20 15:50 VBG pCO2 35.6 mmHg (41-51) L 02/01/20 15:50 VBG pO2 52.9 mmHg (25-47) H 02/01/20 15:50 VBG HCO3 19.5 mmol/L (23-28) L 02/01/20 15:50 VBG Total CO2 20.6 mmol/L (24-29) L 02/01/20 15:50 VBG O2 Saturation 85.6 % (60-80) H 02/01/20 15:50 VBG Base Excess -5.4 mmol/L (-2 - +2) L 02/01/20 15:50 Respiration Rate 16 b/min 02/02/20 04:45 O2 Delivery Device VENTILATOR 02/02/20 04:45 Vent Mode SIMV 02/02/20 04:45 FiO2 0.35 02/02/20 04:45 Tidal Volume 500 mL 02/02/20 04:45 PEEP 5 cmH2O 02/02/20 04:45 Pressure Support Vent 10 cmH2O 02/02/20 04:45 Sodium 140 mmol/L (135-145) 02/08/20 05:10 Potassium 4.5 mmol/L (3.5-5.0) 02/08/20 05:10 Chloride 107 mmol/L (101-111) 02/08/20 05:10 Carbon Dioxide 22 mmol/L (21-32) 02/08/20 05:10 Anion Gap 11.0 (6-13) 02/08/20 05:10 BUN 81 mg/dL (6-20) H* 02/08/20 05:10 Creatinine 2.1 mg/dL (0.6-1.2) H 02/08/20 05:10 Estimated GFR (MDRD) 31 (>89) L 02/08/20 05:10 Glucose 235 mg/dL (70-100) H 02/08/20 05:10 POC Whole Bld Glucose 229 mg/dL (70 - 100) H 02/08/20 12:06 Estimat Average Glucose 126 mg/dL (70-100) H 01/31/20 04:25 Hemoglobin A1c % 6.0 % (4.27-6.07) 01/31/20 04:25 Calcium 10.3 mg/dL (8.5-10.3) 02/08/20 05:10 Phosphorus 4.2 mg/dL (2.5-4.6) 02/05/20 04:37 Magnesium 2.4 mg/dL (1.7-2.8) 02/05/20 04:37 Total Bilirubin 0.8 mg/dL (0.2-1.0) 02/08/20 05:10 AST 57 IU/L (10-42) H 02/08/20 05:10 ALT 69 IU/L (10-60) H 02/08/20 05:10 Alkaline Phosphatase 53 IU/L (42-121) 02/08/20 05:10 Troponin I High Sens 962.8 ng/L (2.3-19.7) H* 02/07/20 14:35 B-Natriuretic Peptide 3798 pg/mL (5-100) H 02/04/20 05:00 Total Protein 6.8 g/dL (6.7-8.2) 02/08/20 05:10 Albumin 3.1 g/dL (3.2-5.5) L 02/08/20 05:10 Globulin 3.7 g/dL (2.1-4.2) 11/03/20 05:10 Albumin/Globulin Ratio 0.8 (1.0-2.2) L 02/08/20 05:10 Triglycerides 242 mg/dL (-149) H 02/01/20 04:30 Cholesterol 159 mg/dL (-199) 02/01/20 04:30 LDL Cholesterol, Calc 86 mg/dL (-129) 02/01/20 04:30 VLDL Cholesterol 48 mg/dL 02/01/20 04:30 HDL Cholesterol 25 mg/dL (60-) L 02/01/20 04:30 LDL/HDL Ratio 3.4 (<3.6) 02/01/20 04:30 Cholesterol/HDL Ratio 6.4 (<5.0) 02/01/20 04:30 TSH 0.69 uIU/mL (0.34-5.60) 01/31/20 04:27 Urine Color YELLOW 01/30/20 18:40 Urine Clarity CLEAR (CLEAR) 01/30/20 18:40 Urine pH 5.0 PH (5.0-7.5) 01/30/20 18:40 Ur Specific [place] 1.025 (1.002-1.030) 01/30/20 18:40 Urine Protein NEGATIVE mg/dL (NEGATIVE) 01/30/20 18:40 Urine Glucose (UA) NEGATIVE mg/dL (NEGATIVE) 01/30/20 18:40 Urine Ketones NEGATIVE mg/dL (NEGATIVE) 01/30/20 18:40 Urine Occult Blood TRACE-INTA (NEGATIVE) 01/30/20 18:40 Urine Nitrite NEGATIVE (NEGATIVE) 01/30/20 18:40 Urine Bilirubin NEGATIVE (NEGATIVE) 01/30/20 18:40 Urine Urobilinogen 0.2 (NORMAL) E.U./dL (NORMAL) 01/30/20 18:40 Ur Leukocyte Esterase NEGATIVE (NEGATIVE) 01/30/20 18:40 Ur Microscopic Review NOT INDICATED 01/30/20 18:40 Urine Culture Comments NOT INDICATED 01/30/20 18:40 Nasal Screen MRSA (PCR) NEGATIVE (NEGATIVE) 01/30/20 15:45 Blood Type AB NEGATIVE 01/30/20 13:18 Antibody Screen NEGATIVE 01/30/20 13:18 Crossmatch IS Only See Detail 01/30/20 13:18 - Procedures Procedures: Procedures BLADDER SPHINCTEROTOMY (05/10/13) CYSTOSCOPY NEC (05/10/13) DX ULTRASOUND NEC (05/10/13) EXCISION OF SIGMOID COLON, ENDO (11/15/15) EXCISION OF STOMACH, PYLORUS, ENDO, DIAGN (11/15/15) INSERT INDWELLING CATH (05/10/13) OTH TRANSURETHRAL PROSTATECTOMY (12/14/12) TRANSFUSE NONAUT FROZEN PLASMA IN PERIPH VEIN, PERC (11/15/15) TRANSFUSE NONAUT RED BLOOD CELLS IN PERIPH VEIN, PERC (11/15/15)
[2020-02-08] MEDS: SERTRALINE 50 MG TABLET PO SCH (21:06)
[2020-02-09] MEDS: DEXTROSE 5% 1,000 ML IV SCH (04:09)
[2020-02-09] MEDS ORDERED: DEXTROSE 5% 1,000 ML IV SCH (07:40)
[2020-02-09] MEDS: INSULIN REGULAR HUMAN 300 UNIT/3 ML VIAL SUBQ SCH ×4 (08:54→22:23)
[2020-02-09] MEDS: INSULIN GLARGINE 300 UNIT/3 ML PEN SUBQ SCH (09:02)
[2020-02-09] MEDS: polyethylene glycoL 3350 17 GM PACKET PO SCH (09:04)
[2020-02-09] MEDS: SODIUM CHLORIDE FLUSH 0.9% 10 ML SYRINGE IVP SCH ×2 (09:10→16:59)
[2020-02-09] MEDS: METOPROLOL SUCCINATE 25 MG TABLET PO SCH (10:42)
[2020-02-09] MEDS: TAMSULOSIN 0.4 MG CAPSULE PO SCH (10:43)
[2020-02-09] MEDS: ASPIRIN CHEW 81 MG TABLET NG SCH (10:43)
[2020-02-09] MEDS: FERROUS SULFATE 325 MG TABLET PO SCH (12:17)
[2020-02-09] MEDS: MORPHINE SOL 10 MG/0.5 ML ORAL SYRINGE PO PRN (15:30)
--- NOTE | 2020-02-09 15:32 | PROVIDER PROGRESS NOTE ---
Assessment/Plan - Problem List (1) Junctional bradycardia Assessment/Plan: Today the heart rate is in the 80s. We will continue to give the beta-pearl for post MO and cardiomyopathy management, as long as heart rates are not under 60. (2) Acute kidney injury superimposed on CKD Assessment/Plan: This was abnormal but stable at last blood test. No more blood tests are being done. (3) Generalized weakness Assessment/Plan: He will not be pushed into skilled level physical therapy or OT. The family wants him comfortable. Some portions of comfort care set have been ordered. Social work is locating for him a long-term care placement and hospice will accept him in several days. (4) COPD (chronic obstructive pulmonary disease) Assessment/Plan: Stable. (5) Acute MO Assessment/Plan: When he developed junctional bradycardia, troponins were recycled and they continue to decrease, he did not have another MO 2 days ago. LVEF is 20% and he had CHF and cardiogenic shock at admission, that has all resolved (6) Cardiomyopathy Qualifiers: Cardiomyopathy type: ischemic Qualified Code(s): I25.5 - Ischemic cardiomyopathy Assessment/Plan: As above. No interventions or transfer for higher level of care. Continue with medical management with goal of comfort (7) Vascular dementia with behavior disturbance Assessment/Plan: As per work-up done this admission (8) Diabetes mellitus with insulin therapy Assessment/Plan: Stable with current diet and management (9) Anemia Qualifiers: Other causes of anemia: acute posthemorrhagic Assessment/Plan: Stable during this admission, no further labs are being drawn (10) BPH (benign prostatic hyperplasia) Assessment/Plan: Stable on his meds but also the Gomez was left in for comfort since he will be transitioning to hospice in the near future. (11) On mechanically assisted ventilation Assessment/Plan: Resolved (12) Cardiogenic shock Assessment/Plan: Resolved (13) Epistaxis Assessment/Plan: Resolved (14) Acute systolic heart failure Assessment/Plan: Resolved (15) Community acquired pneumonia Assessment/Plan: Completed his course of treatment (16) Hypernatremia Assessment/Plan: Resolved (17) Insomnia Assessment/Plan: Resolved - Current Meds Current Meds: Current Medications Generic Name Dose Route Start Last Admin Trade Name Freq PRN Reason Stop Dose Admin Acetaminophen 650 mg 02/01/20 15:24 02/04/20 23:52 Tylenol [place] 650 mg Q6HR PRN Administration Pain or Fever > 38C (100.4F) Aspirin 81 mg 02/02/20 09:00 02/09/20 10:43 [facility] [place] Aspirin NG 81 mg DAILY JOHANNY Administration Ferrous Sulfate 325 mg 02/05/20 12:00 02/09/20 12:17 Feosol PO 325 mg Q48H JOHANNY Administration Insulin Glargine 6 unit 02/08/20 09:00 02/09/20 09:02 Lantus Solostar SUBQ 6 unit DAILY JOHANNY Administration Insulin Human Regular 2 - 10 unit 02/06/20 15:15 02/09/20 12:03 Humulin R SUBQ 6 unit 0800,1200,1700,2100 JOHANNY Administration Protocol Metoprolol Succinate 12.5 mg 02/08/20 09:00 02/09/20 10:42 Toprol Xl PO 12.5 mg DAILY JOHANNY Administration Morphine Sulfate 2 mg 02/07/20 16:54 02/08/20 14:53 Morphine (Carpuject) IVP 2 mg Q2HR PRN Administration Pain or Shortness of air Multi-Ingredient Ointment 1 applic 01/31/20 23:33 02/06/20 11:55 Zinc Oxide TOP 1 applic PRN PRN Administration Skin Care Ondansetron HCl 4 mg 01/30/20 16:19 02/05/20 17:11 Zofran Inj IVP 4 mg Q6HR PRN Administration Nausea / Vomiting Polyethylene Glycol 17 gm 02/03/20 09:00 02/09/20 09:04 Miralax PO Not Given DAILY JOHANNY Sertraline HCl 50 mg 02/05/20 21:00 02/08/20 21:06 Zoloft PO 50 mg QPM JOHANNY Administration Sodium Chloride 10 ml 01/30/20 17:00 02/09/20 09:10 Normal Saline Flush 0.9% IVP Not Given 0100,0900,1700 JOHANNY Sodium Chloride 10 ml 01/30/20 16:19 02/07/20 04:43 Normal Saline Flush 0.9% IVP 20 ml PRN PRN Administration NEEDED PER PROVIDER ORDERS Tamsulosin HCl 0.4 mg 02/05/20 09:00 02/09/20 10:43 Flomax PO 0.4 mg DAILY JOHANNY Administration - Lab Result Fish Bone Diagrams: 02/08/20 05:10 02/08/20 05:10 - Additional Planning My Orders: My Active Orders 02/09/20 07:40 Dextrose 5% [D5w] 1,000 ml IV TKO 02/09/20 15:00 Morphine Oral Soln [Roxanol] 5 mg PO Q2HR PRN 02/09/20 15:29 Central Line Discontinuation [RC] .ONCE Subjective - Subjective Nursing Reports: Other (Appears somewhat agitated, uncomfortable,same confusion as yesterday) Objective Vital Signs: Vital Signs - 24 hr 02/08/20 02/09/20 16:28 08:47 Temperature 36.4 C L 36.8 C Heart Rate [ 81 101 H Monitoring electrodes] Respiratory 16 14 Rate Blood Pressure 106/59 L 126/79 [Left Brachial artery] O2 Saturation 91 L 90 L Oxygen O2 Source [With Activity] Nasal cannula O2 Source Room air I&O (Last 24 Hrs): Intake and Output Totals x24h 02/07/20 02/08/20 02/09/20 23:59 23:59 23:59 Intake Total 1654 3387.971 7710 Output Total 464 170 620 Balance 1190 989.167 633 General: No acute distress Respiratory: No respiratory distress - Results Results: Laboratory Results WBC 11.8 x10^3/uL (4.8-10.8) H 02/08/20 05:10 RBC 2.96 10^6/uL (4.70-6.10) L 02/08/20 05:10 Hgb 8.6 g/dL (14.0-18.0) L 02/08/20 05:10 Hct 29.9 % (42.0-52.0) L 02/08/20 05:10 MCV 101.0 fL (80.0-94.0) H 02/08/20 05:10 MCH 29.1 pg (27.0-31.0) 02/08/20 05:10 MCHC 28.8 g/dL (32.0-36.0) L 02/08/20 05:10 RDW 15.3 % (12.0-15.0) H 02/08/20 05:10 Plt Count 302 10^3/uL (130-450) 02/08/20 05:10 MPV 10.3 fL (7.4-11.4) 02/08/20 05:10 Neut # (Auto) 9.5 10^3/uL (1.5-6.6) H 02/08/20 05:10 Lymph # (Auto) 1.0 10^3/uL (1.5-3.5) L 02/08/20 05:10 [place] # (Auto) 0.9 10^3/uL (0.0-1.0) 02/08/20 05:10 Eos # (Auto) 0.2 10^3/uL (0.0-0.7) 02/08/20 05:10 Baso # (Auto) 0.1 10^3/uL (0.0-0.1) 02/08/20 05:10 Absolute Nucleated RBC 0.08 x10^3/uL 02/08/20 05:10 Nucleated RBC % 0.7 /100WBC 02/08/20 05:10 Manual Slide Review Indicated 02/08/20 05:10 Platelet Estimate NORMAL (130-450,000) (NORMAL) 02/08/20 05:10 Platelet Morphology NORMAL APPEARANCE (NORMAL) 02/08/20 05:10 RBC Morph Micro Appear 2+ HYPOCHROMASIA (NORMAL) 02/08/20 05:10 PT 14.8 secs (9.9-12.6) H 01/31/20 04:27 INR 1.3 (0.8-1.2) H 01/31/20 04:27 Anti-Xa Level 0.2 U/mL (-0.7) 02/02/20 04:45 Bld Gas Analysis Time 0501 02/02/20 04:45 Sample Site A-LINE 02/02/20 04:45 ABG pH 7.40 (7.35-7.45) 02/02/20 04:45 ABG pCO2 28 mmHg (34-45) L 02/02/20 04:45 ABG pO2 107 mmHg (80-100) H 02/02/20 04:45 ABG HCO3 17.3 mmol/L (22.0-26.0) L 02/02/20 04:45 ABG Total CO2 18.2 MMOL/L (21.0-29.0) L 02/02/20 04:45 ABG O2 Saturation 97 % (94-98) 02/02/20 04:45 ABG Base Excess -6.4 mmol/L (-2.0-3.0) L 02/02/20 04:45 Cirilo Test NOT APPLICABLE 02/02/20 04:45 VBG pH 7.356 (7.31-7.41) 02/01/20 15:50 VBG pCO2 35.6 mmHg (41-51) L 02/01/20 15:50 VBG pO2 52.9 mmHg (25-47) H 02/01/20 15:50 VBG HCO3 19.5 mmol/L (23-28) L 02/01/20 15:50 VBG Total CO2 20.6 mmol/L (24-29) L 02/01/20 15:50 VBG O2 Saturation 85.6 % (60-80) H 02/01/20 15:50 VBG Base Excess -5.4 mmol/L (-2 - +2) L 02/01/20 15:50 Respiration Rate 16 b/min 02/02/20 04:45 O2 Delivery Device VENTILATOR 02/02/20 04:45 Vent Mode SIMV 02/02/20 04:45 FiO2 0.35 02/02/20 04:45 Tidal Volume 500 mL 02/02/20 04:45 PEEP 5 cmH2O 02/02/20 04:45 Pressure Support Vent 10 cmH2O 02/02/20 04:45 Sodium 140 mmol/L (135-145) 02/08/20 05:10 Potassium 4.5 mmol/L (3.5-5.0) 02/08/20 05:10 Chloride 107 mmol/L (101-111) 02/08/20 05:10 Carbon Dioxide 22 mmol/L (21-32) 02/08/20 05:10 Anion Gap 11.0 (6-13) 02/08/20 05:10 BUN 81 mg/dL (6-20) H* 02/08/20 05:10 Creatinine 2.1 mg/dL (0.6-1.2) H 02/08/20 05:10 Estimated GFR (MDRD) 31 (>89) L 02/08/20 05:10 Glucose 235 mg/dL (70-100) H 02/08/20 05:10 POC Whole Bld Glucose 239 mg/dL (70 - 100) H 02/09/20 11:54 Estimat Average Glucose 126 mg/dL (70-100) H 01/31/20 04:25 Hemoglobin A1c % 6.0 % (4.27-6.07) 01/31/20 04:25 Calcium 10.3 mg/dL (8.5-10.3) 02/08/20 05:10 Phosphorus 4.2 mg/dL (2.5-4.6) 02/05/20 04:37 Magnesium 2.4 mg/dL (1.7-2.8) 02/05/20 04:37 Total Bilirubin 0.8 mg/dL (0.2-1.0) 02/08/20 05:10 AST 57 IU/L (10-42) H 02/08/20 05:10 ALT 69 IU/L (10-60) H 02/08/20 05:10 Alkaline Phosphatase 53 IU/L (42-121) 02/08/20 05:10 Troponin I High Sens 962.8 ng/L (2.3-19.7) H* 02/07/20 14:35 B-Natriuretic Peptide 3798 pg/mL (5-100) H 02/04/20 05:00 Total Protein 6.8 g/dL (6.7-8.2) 02/08/20 05:10 Albumin 3.1 g/dL (3.2-5.5) L 02/08/20 05:10 Globulin 3.7 g/dL (2.1-4.2) 02/08/20 05:10 Albumin/Globulin Ratio 0.8 (1.0-2.2) L 02/08/20 05:10 Triglycerides 242 mg/dL (-149) H 02/01/20 04:30 Cholesterol 159 mg/dL (-199) 02/01/20 04:30 LDL Cholesterol, Calc 86 mg/dL (-129) 02/01/20 04:30 VLDL Cholesterol 48 mg/dL 02/01/20 04:30 HDL Cholesterol 25 mg/dL (60-) L 02/01/20 04:30 LDL/HDL Ratio 3.4 (<3.6) 02/01/20 04:30 Cholesterol/HDL Ratio 6.4 (<5.0) 02/01/20 04:30 TSH 0.69 uIU/mL (0.34-5.60) 01/31/20 04:27 Urine Color YELLOW 10/25/20 18:40 Urine Clarity CLEAR (CLEAR) 01/30/20 18:40 Urine pH 5.0 PH (5.0-7.5) 01/30/20 18:40 Ur Specific [place] 1.025 (1.002-1.030) 01/30/20 18:40 Urine Protein NEGATIVE mg/dL (NEGATIVE) 01/30/20 18:40 Urine Glucose (UA) NEGATIVE mg/dL (NEGATIVE) 01/30/20 18:40 Urine Ketones NEGATIVE mg/dL (NEGATIVE) 01/30/20 18:40 Urine Occult Blood TRACE-INTA (NEGATIVE) 01/30/20 18:40 Urine Nitrite NEGATIVE (NEGATIVE) 01/30/20 18:40 Urine Bilirubin NEGATIVE (NEGATIVE) 01/30/20 18:40 Urine Urobilinogen 0.2 (NORMAL) E.U./dL (NORMAL) 01/30/20 18:40 Ur Leukocyte Esterase NEGATIVE (NEGATIVE) 01/30/20 18:40 Ur Microscopic Review NOT INDICATED 01/30/20 18:40 Urine Culture Comments NOT INDICATED 01/30/20 18:40 Nasal Screen MRSA (PCR) NEGATIVE (NEGATIVE) 01/30/20 15:45 SARS-CoV-2 (PCR) NOT DETECTED 02/08/20 15:15 Blood Type AB NEGATIVE 01/30/20 13:18 Antibody Screen NEGATIVE 01/30/20 13:18 Crossmatch IS Only See Detail 01/30/20 13:18 - Procedures Procedures: Procedures BLADDER SPHINCTEROTOMY (05/10/13) CYSTOSCOPY NEC (05/10/13) DX ULTRASOUND NEC (05/10/13) EXCISION OF SIGMOID COLON, ENDO (11/15/15) EXCISION OF STOMACH, PYLORUS, ENDO, DIAGN (11/15/15) INSERT INDWELLING CATH (05/10/13) OTH TRANSURETHRAL PROSTATECTOMY (12/14/12) TRANSFUSE NONAUT FROZEN PLASMA IN PERIPH VEIN, PERC (11/15/15) TRANSFUSE NONAUT RED BLOOD CELLS IN PERIPH VEIN, PERC (11/15/15)
--- NOTE | 2020-02-09 16:59 | Discharge Plan ---
"Discharge Plan for SNF / GI - Discharge Plan And Transition Orders Problem Reviewed?: Yes Disposition: 03 SNF DC/Xfer Condition: Poor Allergies and Adverse Reactions: Allergies Allergy/AdvReac Type Severity Reaction Status Date / Time shellfish derived Allergy Emesis Verified 01/30/20 12:10 Health Concerns: Patient was admitted in cardiogenic shock with blood pressure 60/40. By labs, he had a very large myocardial infarction, now has congestive heart failure, he was on a ventilator and also had community-acquired pneumonia. After extubation, mental status was noted to be altered and he underwent work-up and is diagnosed with vascular dementia. He has failed to thrive, is too weak to perform physical therapy, and the family (DPOAs) have decided on comfort measures. He will be accepted by Hospice. Plan of Treatment: As above. Care Goals: Overall comfort is the goal. Assessment: The family (DPOAs) agree with the plan. - SNF / GI Transition Orders Admit to (Facility): [facility] Discharge Diagnosis: (1) Cardiogenic shock Resolved (2) Acute MN (3) Ischemic Cardiomyopathy (4) Acute systolic heart failure (5) Community acquired pneumonia Completed his course of treatment (6) Epistaxis Resolved (7) Vascular dementia with behavior disturbance As per work-up done this admission (8) Junctional bradycardia Intermittent and no pacemaker is planned (9) CKD (10) Hypernatremia Resolved (11) Generalized weakness (12) COPD (chronic obstructive pulmonary disease) Stable. (13) Diabetes mellitus with insulin therapy Stable (14) Anemia Stable (15) BPH (benign prostatic hyperplasia) Stable on his meds but also the Gomez iss left in for comfort Medicare Certification Statement: I certify that [facility] care is medically necessary on a continuing basis for any of the conditions for which she/he is receiving care during hospitalization. Notify PCP of admission and forward orders to primary provider for signature. Other Notification Orders: Call PCP immediately if patient develops dyspnea, chest pain/tightness or edema. House Bowel Program: Yes Additional Bowel Program Orders: If no BM after 2 days, nurse may give M.O.M. 30ml PO PRN and/or ducolax Supp 1 UT and/or JOSE F 250mg P.O., and/or senna 1-2 tabs PO. On day 3 nurse may give repeat above order until residents constipation is resolved. Annual Influenza Vaccine (between Dec 06 and July 05): Yes Two-step PPD per [facility] [id number] or approved exception documents: Yes Treatments & Other Orders: Out of bed to chair at least daily, and hopefully for meals. Oxygen Orders: 2L/min by nasal cannula prn Medication Orders: PLEASE REFER TO THE DISCHARGE MEDICATION LIST and Please check heart rate every morning.DO NOT GIVE MORNING METOPROLOL DOSE IF HEART RATE IS LESS THAN 60. Insulin Orders?: Yes - Medications New Prescriptions: Insulin Regular Human [Humulin R] 2 - 10 unit SUBQ 0800,1200,1700,2100 #1 vial Insulin Glargine [Lantus Solostar] 6 unit SUBQ DAILY #1 pen Morphine Ir [Ms Ir] 15 mg PO Q8H PRN #15 tablet PRN Reason: As Needed Per Provider Orders Carboxymethylcellulose 1% Opht [Refresh 1% Ophth Drops] 1 drops EACHEYE QID PRN #1 bottle PRN Reason: Dry Eye Aspirin Chewable [[place]frey Aspirin] 81 mg NG DAILY #30 tablet Metoprolol Succinate [Toprol Xl] 12.5 mg PO DAILY #15 tablet - Diet Type: No added sugar (Diabetic diet) Texture: Puree Liquids: [place] thick May have monthly special meal: Yes - Therapies | Activity Activity: Activity as Tolerated Assistance Devices: Wheelchair, Walker Follow Up: Dr Bonilla (Hospice) to take over care in several days. Insulin Orders - SNF Basal | Correction | Custom Orders: Diagnosis: Diabetes Initiate hypo and hyperglycemia protocols for BG <70 and BG >375. May check BG PRN for signs/symptoms of dysglycemia. Frequency of BG checks: [AC/Meal/HS] Basal Insulin: [X] Lantus 100 units / ml inject subq as follows: 6U sq daily Correction Insulin: - Select the type of insulin below Humalog 100 units /ml insulin inject subq per orders indicate below [] LOW DOSE [X] MODERATE DOSE [] MODERATE/HIGH DOSE [] HIGH DOSE GB UNITS GB UNITS GB UNITS GB UNITS 61-140 0 UNITS 61-140 0 UNITS 61-140 0 UNITS 61-140 0 UNITS 141-175 1 UNITS 141-175 1 UNITS 141-175 2 UNITS 141-175 3 UNITS 176-225 2 UNITS 176-225 3 UNITS 176-225 4 UNITS 176-225 5 UNITS 226-275 3 UNITS 226-275 5 UNITS 226-275 6 UNITS 226-275 7 UNITS 276-325 4 UNITS 276-325 7 UNITS 276-325 8 UNITS 276-325 9 UNITS 326-375 5 UNITS 326-375 9 UNITS 326-375 10 UNITS 326-375 11 UNITS >375 CONTACT MD >375 CONTACT MD >375 CONTACT MD >375 CONTACT MD"
--- NOTE | 2020-02-09 17:09 | DISCHARGE SUMMARY ---
Discharge Summary Admit Date: 01/30/20 Discharge Date: 02/10/20 Discharging Provider: Dr Lucrecia Lira Primary Care Provider: Dr Pinky Moscoso Code Status: Do Not Attempt Resuscitation Condition at Discharge: Poor Discharge Disposition: 03 SNF DC/Xfer Discharge Facility Name: [facility] History of Present Illness: This is a 74-year-old white male who has history of hypertension, diabetes, prior GI bleeds with colonoscopy and EGDs not finding a source and he requires IV iron occasionally. He came to the ER 2 days ago with a nosebleed and required insertion of a tampon, then he returned back that night, with concern there was repeat nasal bleeding, but was stable. Today, at the [facility] Facility where he lives, the staff reported he had a lot of bloody diarrhea and he was brought to the ER. The nasal tampon was noted to be dry, but he appeared pale, and his blood pressure was 60/40. The last (recent) hemoglobin had dropped from 12.5 to 9 today, and BUN/creatinine bree to 91/2.5. He was intubated in the ER and started on sedation in preparation for an emergent EGD, to be done for presumed GI bleed causing hemorrhagic shock. Following the EGD he will be admitted to the ICU on the Hospitalist service. Patient was already sedated when first evaluated by the Hospitalist and we have no information regarding his CODE BLUE wishes. A DPOA will be contacted. - HOSPITAL COURSE Hospital Course: (1) Cardiogenic shock The EGD found no source of bleeding. His hemoglobin remained stable at 9-9.5 and hemorrhagic shock was ruled out. There were no signs of infection and he had a normal lactic acid level, ruling out septic shock. His hs-troponin however was greater than 21,000 and he was diagnosed with cardiogenic shock. DPOA was contacted and she did not want to transfer this patient to higher level of care, requested medical management only. On the following day, a new POLST form was signed and the patient was newly made a DNR. The patient required a Levophed drip for several days which was then weaned to off, BP ran 90-120 this admission. (2) Acute ND His admission EKG showed left bundle branch block which was old. His hs- troponins were monitored and the 21,000 was the peak, they declined after that. He was placed on 48 hours of IV heparin and was started on aspirin daily. He could not receive initially beta-blockers, nitrates because of being in shock. An Echo was done that showed LVEF 20%. No interventions or transfer for higher level of care was done. (3) Ischemic Cardiomyopathy He was eventually started on B-eparl, aspirin and statin. (4) On mechanically assisted ventilation He was extubated after several days (5) Acute systolic heart failure His pulmonary edema was treated with Lasix and resolved (6) Community acquired pneumonia he completed his course of antibiotic treatment (7) Epistaxis Resolved (8) Vascular dementia with behavior disturbance As per head CT and cognitive evaluation/work-up done this admission (9) Junctional bradycardia We saw his HR drop to the 30-50's, he was in junctional rhythm. On those days, the beta-pearl was held and his P wave would recover later in the day. He was dosed his morning B-pearl, as long as heart rates were not under 60. (10) Acute kidney injury superimposed on CKD The creat was abnormal but stable at last blood test, with creat 2.1. (11) Hypernatremia This developed after days of iv Lasix use, and resolved when daily Lasix was stopped. (12) Generalized weakness He will not be pushed into skilled-level physical therapy or OT because of weakness and dementia. The family wants him comfortable. (13) COPD (chronic obstructive pulmonary disease) Stable on prn inhalers. (14) Diabetes mellitus with insulin therapy Stable with current diet and management (15) Anemia Hgb was relatively stable during this admission at 9.4-8.6. He was kept on his oral Iron replacement. (16) BPH (benign prostatic hyperplasia) Stable on his meds but also the Gomez was left in for comfort since he will be transitioning to Hospice. (17) Insomnia Resolved - ALLERGIES Allergies/Adverse Reactions: Allergies Allergy/AdvReac Type Severity Reaction Status Date / Time shellfish derived Allergy Emesis Verified 01/30/20 12:10 - MEDICATIONS Home Medications: Ambulatory Orders Medication Instructions Recorded Confirmed Acetaminophen [Tylenol] 325 mg PO Q6H PRN 06/10/17 01/31/20 Ferrous Sulfate 325 mg PO .QOD 06/10/17 01/31/20 Tamsulosin [Flomax] 0.4 mg PO DAILY 06/10/17 01/31/20 Sertraline HCl 50 mg PO DAILY 01/29/18 01/31/20 Esomeprazole Magnesium 20 mg PO BID 07/28/18 01/31/20 Albuterol Sulfate [Albuterol 2 - 4 puffs PO Q4H 01/31/20 01/31/20 Sulfate Hfa] Aspirin Chewable [St Godfrey 81 mg NG DAILY #30 tablet 02/10/20 Aspirin] Carboxymethylcellulose 1% Opht 1 drops EACHEYE QID PRN #1 bottle 02/10/20 [Refresh 1% Ophth Drops] Insulin Glargine [Lantus Solostar] 6 unit SUBQ DAILY #1 pen 02/10/20 Insulin Regular Human [Humulin R] 2 - 10 unit SUBQ 02/10/20 0800,1200,1700,2100 #1 vial Metoprolol Succinate [Toprol Xl] 12.5 mg PO DAILY #15 tablet 02/10/20 Morphine Ir [Ms Ir] 15 mg PO Q8H PRN #15 tablet 02/10/20 - PHYSICAL EXAM AT DISCHARGE General Appearance: positive: No acute distress, Lethargic Eyes Bilateral: positive: Normal inspection, EOMI ENT: positive: ENT inspection nml, No signs of dehydration Neck: positive: Nml inspection Respiratory: positive: No respiratory distress Cardiovascular: positive: Regular rate & rhythm, No murmur Abdomen: positive: Non-tender, No distention Skin: positive: Warm, Dry, Pallor Neurologic/Psychiatric: positive: Motor nml, Disoriented to time, Weakness - LABS Result Diagrams: 02/08/20 05:10 02/08/20 05:10 - DIAGNOSTIC IMAGING Diagnostic Imaging Results: Final report reviewed - FOLLOW UP Follow Up: Hospice Care - TIME SPENT Time Spent in Discharge (Minutes): 60
[2020-02-09] MEDS: SERTRALINE 50 MG TABLET PO SCH (22:22)
[2020-02-10] MEDS: SODIUM CHLORIDE FLUSH 0.9% 10 ML SYRINGE IVP SCH ×2 (00:23→10:49)
[2020-02-10] MEDS: MORPHINE SOL 10 MG/0.5 ML ORAL SYRINGE PO PRN (04:48)
[2020-02-10] MEDS: INSULIN GLARGINE 300 UNIT/3 ML PEN SUBQ SCH (08:16)
[2020-02-10] MEDS: INSULIN REGULAR HUMAN 300 UNIT/3 ML VIAL SUBQ SCH ×2 (08:20→12:50)
[2020-02-10 08:28] VITALS: BP 140/95
[2020-02-10] MEDS: ASPIRIN CHEW 81 MG TABLET NG SCH (08:28)
[2020-02-10] MEDS: polyethylene glycoL 3350 17 GM PACKET PO SCH (08:29)
[2020-02-10] MEDS: TAMSULOSIN 0.4 MG CAPSULE PO SCH (08:29)
[2020-02-10] MEDS: METOPROLOL SUCCINATE 25 MG TABLET PO SCH (08:29)
[2020-02-10] MEDS ORDERED: LORazepam 0.5 MG TABLET PO ONE (12:45)
== END 2020-02-10 13:54 | disposition hospice, home (50) | DRG 280 ==
LOC: EDUNIT# → ED 12:01 → SDS 13:55 → ICU 15:33 → MS2 02-09 18:17
PROVIDERS: ADMIT Internal Medicine; ATTEND Internal Medicine
PROC: 0DJ08ZZ Inspection of Upper Intestinal Tract, Via Natural or Artificial Opening Endoscopic (ICD-10-PCS; 2020-01-30)
PROC: 5A1945Z Respiratory Ventilation, 24-96 Consecutive Hours (ICD-10-PCS; principal; 2020-01-30 13:47)
DX: I21.9 Acute myocardial infarction, unspecified (principal); R57.0 Cardiogenic shock; I50.21 Acute systolic (congestive) heart failure; J18.9 Pneumonia, unspecified organism; F01.51 Vascular dementia, unspecified severity, with behavioral disturbance; I13.0 Hypertensive heart and chronic kidney disease with heart failure and stage 1 through stage 4 chronic kidney disease, or unspecified chronic kidney disease; I95.1 Orthostatic hypotension; J44.0 Chronic obstructive pulmonary disease with (acute) lower respiratory infection; E87.0 Hyperosmolality and hypernatremia; D62 Acute posthemorrhagic anemia; N17.9 Acute kidney failure, unspecified; I21.4 Non-ST elevation (NSTEMI) myocardial infarction; E11.22 Type 2 diabetes mellitus with diabetic chronic kidney disease; N18.9 Chronic kidney disease, unspecified; E11.65 Type 2 diabetes mellitus with hyperglycemia; I25.5 Ischemic cardiomyopathy; E66.9 Obesity, unspecified; Z68.34 Body mass index [BMI] 34.0-34.9, adult; I44.7 Left bundle-branch block, unspecified; R00.1 Bradycardia, unspecified; K92.2 Gastrointestinal hemorrhage, unspecified; R62.7 Adult failure to thrive; N40.1 Benign prostatic hyperplasia with lower urinary tract symptoms; R04.0 Epistaxis; R62.50 Unspecified lack of expected normal physiological development in childhood; I10 Essential (primary) hypertension; G47.00 Insomnia, unspecified; Z66 Do not resuscitate; E11.9 Type 2 diabetes mellitus without complications; Z20.828 Contact with and (suspected) exposure to other viral communicable diseases; R35.1 Nocturia; F40.240 Claustrophobia; Z78.1 Physical restraint status; Z79.4 Long term (current) use of insulin; Z79.899 Other long term (current) drug therapy
CPT/HCPCS: 31500; 36415; 36430; 36556; 36620; 51702; 70450; 71045; 80048; 80053; 80061; 81003; 82272; 82803; 83036; 83735; 83880; 84100; 84443; 84484; 85014; 85018; 85025; 85520; 85610; 86850; 86900; 86901; 86920; 87040; 87150; 92526; 92610; 93005; 93306; 94002; 94003; 96361; 96374; 97116; 97161; 97166; 97530; 99152; 99291; A9270; J0131; J1815; J3010; P9016; U0004; 81001; 83721; 85027; 87086; 94770

== ENCOUNTER 2020-02-10 13:55 | Outpatient (CLI) | payer MEDICARE | END 2020-02-10 13:56 | disposition hospice, home (50) | LOC: EMS 13:55 | PROVIDERS: ATTEND Surgery | DX: Z74.01 Bed confinement status (principal) | CPT/HCPCS: A0425; A0428 ==